=== PATIENT | female | born 1940 | race Caucasian/White ===

== ENCOUNTER → 2023-11-06 09:55 | Outpatient (REF) | payer MEDICARE, OTHER, SELFPAY | LOC: RAD 09:55 | PROVIDERS: ATTENDING PHYSICIAN Internal Medicine Gastroenterology; FAMILY PHYSICIAN Physician Assistant Medical | DX: R13.19 Other dysphagia (principal) | CPT/HCPCS: 74230; 92611 ==

== ENCOUNTER → 2023-12-05 06:26 | Day surgery (SDC) | payer MEDICARE, OTHER, SELFPAY | LOC: GI 06:26 | PROVIDERS: ATTENDING PHYSICIAN Internal Medicine Gastroenterology | DX: R63.4 Abnormal weight loss (principal); R19.7 Diarrhea, unspecified; K57.30 Diverticulosis of large intestine without perforation or abscess without bleeding; K64.0 First degree hemorrhoids; K55.20 Angiodysplasia of colon without hemorrhage; D12.3 Benign neoplasm of transverse colon | CPT/HCPCS: 45385; 45380; 88305 ==

== ENCOUNTER 2023-12-08 13:36 | Observation (INO) | payer MEDICARE, OTHER, SELFPAY ==
[2023-12-08 10:02] VITALS: BP 141/92
[2023-12-08 11:13] LABS: % Basophils 1.1 % (0-2); % Eosinophils 1.4 % (0-6); % Immature Granulocytes 0.4 % (0-0.5); % Lymphocytes 16.5 % (20.5-51.1); % Monocytes 7.5 % (1.7-9.3); % Neutrophils 73.1 % (42.2-75.2); Absolute Basophils 0.1 10^3/uL (0-0.2); Absolute Eosinophils 0.1 10^3/uL (0-0.7); Absolute Lymphocytes 1.3 10^3/uL (1.2-3.4); Absolute Monocytes 0.6 10^3/uL (0.1-0.6); Absolute Neutrophils 5.9 10^3/uL (1.4-6.5); Hematocrit 34.6 % (37.0-47.0); Hemoglobin 11.7 g/dL (12.0-16.0); Mean Corp Hgb Conc. 33.8 g/dL (33.0-37.0); Mean Corpuscular Hgb 28.7 pg (27.0-31.0); Mean Platelet Volume 10.5 fL (7.4-10.4); Nucleated Red Blood Cells % 0 %; Platelet Count 299 10^3/uL (130-400); Red Blood Cell Count 4.07 10^6/uL (4.20-5.40); Red Cell Dist. Width 14.6 % (11.5-14.5); White Blood Cell Count 8.1 10^3/uL (4.8-10.8)
[2023-12-08] MEDS: NSS 1000 IV ×2 (11:19→15:53)
[2023-12-08 11:27] LABS: ALT (SGPT) 20 U/L (0-35); AST (SGOT) 24 U/L (14-36); Albumin 4.3 g/dl (3.5-5.0); Alkaline Phosphatase 126 U/L (38-126); Blood Urea Nitrogen 15 mg/dl (7-17); Calcium 9.5 mg/dl (8.4-10.2); Carbon Dioxide 27 mmol/L (22-30); Chloride 107 mmol/L (98-107); Glucose 102 mg/dl (70-99); Potassium 3.5 mmol/L (3.5-5.1); Sodium 140 mmol/L (135-145); Total Bilirubin 1.1 mg/dl (0.2-1.3); Total Protein 7.3 g/dl (6.3-8.2); eGFR > 60.00
[2023-12-08 11:31] VITALS: BP 150/84; BP 152/71; BP 165/93; PULSE 100; PULSE 84; PULSE 92
--- NOTE | 2023-12-08 11:39 | ED.GENMED ---
History of Present Illness
General
Chief Complaint: Rectal Bleeding
Source: patient, records and family
Exam Limitations: none
Time Seen by Provider: 12/08/23 10:51
Nursing documentation reviewed up to this point in time: agreed with
Travel History
Have you had any contact with someone who has COVID-19?: No
Do you have any symptoms of coronavirus? Fever > 100 degrees, chills, cough, shortness of breath, sore throat, loss of taste or smell, muscle aches, or headache?: No
History of Present Illness
History of Present Illness:
Patient is a 3-year-old female presents to the emergency department complaining of feeling mildly weak, lightheaded with some discomfort in her abdomen as well as black stool. Patient denies chest pain, shortness of breath or palpitations. Patient
had a colonoscopy with removal of a polyp in the transverse colon 3 days ago. Patient had little bit of bleeding after that but then yesterday her stools turned black. Last night the patient was standing and almost had a syncopal episode because
of weakness and feeling lightheaded. Patient does have a history of A-fib but denies any palpitations. Patient denies fever or chills. Patient had an endoscopy and Deion which did not show any upper GI issues. Patient also had Two
angioectasias on her colonoscopy that were not bleeding.
Past History
Past History
ED Past Medical History: Arrthythmia (Atrial fib), CAD, CHF, HTN, Hypercholesterolemia, Hypothyroidism and Other (PNA, Microscopic Colitis, Vertigo, DDD)
ED Past Surgical History: Appendectomy, Bowel resection, Gynecological (Hysterectomy), Orthopedic (Total L knee replacement) and Other (Polyps removed and then developed staph infection. Needed colostomy and then reversal)
Social History
Tobacco: Non-smoker
Alcohol: None
Personal:
Living: with family (Grandson)
Employment: Retired
Family History
Family History: Negative Diabetes, Hypertension or CAD
Review of Systems
Review of Systems
All Other Systems: ROS reviewed and negative except as documented in HPI and ROS
Constitutional: Reports fatigue; Denies fever or chills
EENT: Reports no symptoms
Respiratory: Reports no symptoms
Cardiac: Reports syncope (near); Denies chest pain, diaphoresis or palpitations
ABD/GI: Reports abdominal pain and black stools; Denies nausea, vomiting, diarrhea, constipated or anorexia
: Reports no symptoms
Musculoskeletal: Reports no symptoms
Skin: Reports no symptoms
Neurological: Reports no symptoms
Hematologic/Lymphatic: Denies bleeding or bruising
Phy Exam
Physical Exam
Physical Exam:
Physical Exam
General: No apparent distress, alert and appropriate, elderly and frail, well hydrated
HENT: Normocephalic, supple with no lymphadenopathy, no thyromegaly
Eyes: Clear sclera, conjuctiva without injection
Heart: Regular rhythm and rate. No S3, S4. No murmur. No NVD
Lungs: No respiratory distress, no stridor, lung sounds clear and equal bilaterally
Abdomen: Soft, minimal diffuse tenderness without guarding or rebound, no organomegaly, no CVA tenderness, BS good. Rectal shows nonthrombosed external hemorrhoids with black melanotic stool that is Hemoccult positive
Neuro: Alert and oriented x 3, CN II - XII intact, no motor focality, no cerebellar dysfunction
Skin: no rash
Psychiatric: well kept. interactive and cooperative
Extremities: No edema, cyanosis, tenderness, Good and equal peripheral pulses.
Course
Orders/Labs/Results
Orders:
Orders
12/08/23 10:50
IV Insert/Care/Rem.- Treatment PRN
12/08/23 10:52
Complete Blood Count/With Diff Urgent
Comprehensive Metabolic Panel Urgent
12/08/23 11:10
Orthostatic VS- Treatment ONCE
0.9% Sodium Chloride 1000 ml [Nss] 1,000 ml IV BOLUS
12/08/23 11:11
Electrocardiogram (*1) Urgent
Reason for Study: Palpitations
EKG- Treatment ONCE
12/08/23 11:18
Type+Screen Urgent
Abnormal Lab Results
12/08/23
10:52
RBC 4.07 L 10^6/uL
(4.20-5.40)
Hgb 11.7 L g/dL
(12.0-16.0)
Hct 34.6 L %
(37.0-47.0)
RDW 14.6 H %
(11.5-14.5)
MPV 10.5 H fL
(7.4-10.4)
Lymphocytes % 16.5 L %
(20.5-51.1)
Creatinine 0.5 L mg/dL
(0.6-1.0)
Glucose 102 H mg/dl
(70-99)
12/08/23 10:52
12/08/23 10:52
Vital Signs
Initial and Last Documented VS:
Initial Vital Signs
Temp Pulse Resp BP Pulse Ox
98.2 F 99 16 141/92 98
12/08/23 10:02 12/08/23 10:02 12/08/23 10:02 12/08/23 10:02 12/08/23 10:02
Last Documented Vital Signs
Temp Pulse Resp BP Pulse Ox
98.2 F 99 16 141/92 98
12/08/23 10:02 12/08/23 10:02 12/08/23 10:02 12/08/23 10:02 12/08/23 10:02
*Radiology
Radiology exam reviewed: other (na)
*Pulse Oximetry
Patient hypoxic: no
*EKG
Interpreted by ED Provider?: Yes
EKG Intrepretation Date: 12/08/23
EKG Intrepretation Time: 11:50
Interpretation: abnormal
Comparison EKG: no changes
Heart Rate: 81
Rate: normal
Rhythm: sinus
[place]: normal axis
QRS Pattern: normal QRS
Ischemia: no ischemia
*[employer] Interpretation
Rate: normal
Interpretation: normal
Heart Rate: 81
Rhythm: sinus
*Critical Care Note
Total Time (30-74mins, 75-104mins- exclusive of procedures): 35 minutes
Update Note
Update Note:
The patient's near syncopal episode will admit. Patient's hemoglobin has dropped approximately 2 g from her normal.
ED Attending Note
-
Portions of this chart may have been created with voice recognition software.� Occasional wrong word or��sound alike� substitutions may have occurred due to the inherent limitations of voice recognition software.
Discharge Plan
Departure
Patient Disposition: Admit
Date of Disposition: 12/08/23
Time of Disposition: 11:51
Admit to: Telemetry
Admit to doctor: Hospitalist
Presentation/result/management discussed w/ accepting MD/DO: Gastroenterology
Patient with high blood pressure during this ER visit?: Yes
Condition: Serious
Discharge Problem:
Near syncope, Acute GI bleeding
Prescriptions:
No Action
atorvastatin 20 MG tablet
20 mg PO DAILY
melatonin 3 MG tablet
3 mg PO HSPRN PRN (Reason: insomnia)
loperamide 2 MG capsule
2 mg PO Q6HPRN PRN (Reason: DIARRHEA)
aspirin 81 mg Tablet,Delayed Release (Dr/Ec)
81 mg PO DAILY
diltiazem HCl 180 MG capsule,extended release 24hr
180 mg PO HS
losartan 50 mg Tablet
50 mg PO DAILY
sertraline [Zoloft] 25 mg Tablet
25 mg PO HS
cholecalciferol (vitamin D3) [Vitamin D3] 25 mcg (1,000 unit) Capsule
25 mcg PO DAILY
multivitamin Tablet
1 tab PO DAILY
Vitamin C
1 tab PO DAILY
[place] Silica
1 tab PO DAILY
acetaminophen [Tylenol 8 Hour] 650 mg Tablet Extended Release
1,300 mg PO Q8HPRN PRN (Reason: pain)
Referrals:
Daryl Castillo PA-C [Family Provider] -
Interventions
Interventions:
*Risk Screen - Suicide Last Done: 12/08/23 10:02
*General Assessment Last Done: 12/08/23 10:02
*Neglect/Abuse Screening Last Done: 12/08/23 10:02
Discharge Date and Time
Print Language: CHINESE
[2023-12-08] MEDS: PROTONIX 100 IV (12:02)
[2023-12-08] MEDS: PROTONIX IV 80 MG IV (12:02)
--- NOTE | 2023-12-08 12:29 | CM ---
Addendum entered by Adarsh Archibald 12/08/23 14:14:
Pt has OBS status. OBS status explained to the pt and daughter Ashley, they expressed their understanding. GLASS letter signed, left in CM department binder to be placed in pt's record.
Original Note:
CM following re: discharge planning.
Reviewed pt's chart, met with pt in ER and pt's daughter Ashley at bedside.
Pt is an 83 year old female, admitted with primary dx of Rectal Bleeding.
Pt reports she lives alone in a 2SH, 2 steps to enter, has a cat and a dog, has 2 supportive daughters, daughter Ashley lives next door and helps daily as needed. Pt reports she has a walker and 3 canes, does not use them in house distance. Pt reports
she had VN services in the past, cannot recall the name and pt stated she was at [facility] in the past when she had a total knee replacement. Pt's daughter stated she feels that pt will be benefitted from VN services at discharge and she
preferred [facility] [place]. pt lives in [place].
PCP: [facility]
Pharmacy: [facility]
D/C plan: home with anticipated VN services and family support.
CM will follow with discharge plan updates as hospitalization progresses
--- NOTE | 2023-12-08 13:21 | HPS.HSE ---
Family Physician
-
Family Physician: Daryl Castillo PA-C
Chief Complaint
-
black stools
History of Present Illness
Patient is an 83-year-old female who had a colonoscopy on December 06, 2023. She had a polyp removed at that time. Since then she has been complaining of 'pooping blood and black stools'. She states that the stool has gotten much black or as she has
gone on. She admitted to the lightheadedness and dizziness, shortness of breath, and nausea. She denied chest pain or any other symptoms. She stated that she was unsteady earlier this morning and fell. Hemoglobin is found to be 11.7. Patient is
being brought in as observation.
Medical History
Past Medical History
Past Medical History: Reports Other
Additional Past Medical History:
Essential hypertension
Paroxysmal atrial fibrillation with Linq implant
Hyperlipidemia
Depression
History of hypothyroidism as documented�patient not on any medications for this
Gastroesophageal reflux disease, coronary artery disease
Past Surgical History: Reports Other
Additional Past Surgical History:
Left knee replacement x 2 (second 1 due to staph infection)
Right knee replacement
History of bowel resection with colostomy followed by reversal
Total abdominal hysterectomy
Appendectomy
Septic prosthetic joint
Social History
Tobacco: Non-smoker
Alcohol: None
Drug: None
Family History
Family History: Not pertinent
Allergies / Home Medications
Allergies reflects when Allergies were last updated in true[x] Media.
Home Medications with original date entered in true[x] Media
Allergy/Medication List:
Allergies
Allergy/AdvReac Type Severity Reaction Status Date / Time
codeine Allergy Nausea / Verified 12/08/23 10:02
Vomiting
doxycycline Allergy Nausea Verified 12/08/23 10:02
escitalopram [From Lexapro] Allergy diarrhea Verified 12/08/23 10:02
morphine Allergy Nausea / Verified 12/08/23 10:02
Vomiting
Penicillins Allergy diarrhea Verified 12/08/23 10:02
apixaban [From Eliquis] AdvReac Unknown hemarthrosi Verified 12/08/23 10:02
s
Home Medications
atorvastatin 20 mg tablet 20 mg PO DAILY High cholesterol 02/14/19
melatonin 3 mg tablet 3 mg PO HSPRN PRN insomnia 02/14/19
loperamide 2 mg capsule 2 mg PO Q6HPRN PRN DIARRHEA 03/10/19
aspirin 81 mg tablet,delayed release 81 mg PO DAILY 08/21/22
diltiazem HCl 180 mg capsule,extended release 24 hr 180 mg PO HS 08/21/22
[place] Silica 1 tab PO DAILY 05/07/23
acetaminophen 650 mg tablet,extended release (Tylenol 8 Hour) 1,300 mg PO Q8HPRN PRN pain 05/07/23
ascorbic acid (vitamin C) 500 mg tablet (Vitamin C) 500 mg PO DAILY ##0 05/07/23
cholecalciferol (vitamin D3) 25 mcg (1,000 unit) capsule (Vitamin D3) 25 mcg PO DAILY 05/07/23
losartan 50 mg tablet 50 mg PO DAILY 05/07/23
multivitamin 1 tab PO DAILY 05/07/23
sertraline 25 mg tablet (Zoloft) 25 mg PO HS 05/07/23
Review of Systems
-
History Source: Patient
A 12 point ROS was completed and negative except as noted: Yes
Constitutional: Reports No Symptoms
EENT: Reports No Symptoms
Respiratory: Reports Trouble Breathing
Cardiac: Reports No Symptoms
Abdomen/GI: Reports Nausea, Bloody Stools and Black Stools; Denies Abdominal Pain or Vomiting
: Reports No Symptoms
Musculoskeletal: Reports No Symptoms
Skin: Reports No Symptoms
Neurological: Reports Dizzy
Endocrine: Reports No Symptoms
Hematologic/Lymphatic: Reports No Symptoms
Psych: Reports No Symptoms
Physical Exam
Vital Signs
Vital Signs
Temp Pulse Resp BP Pulse Ox
98.2 F 99 16 141/92 98
12/08/23 10:02 12/08/23 10:02 12/08/23 10:02 12/08/23 10:02 12/08/23 10:02
Physical Exam
General: Well Developed, Well Nourished and No Apparent Distress
HEENT: NormoCephalic and Anicteric; No Oxygen
Respiratory: Clear; No Wheezes, Rales, Rhonchi or Crackles
Cardiac: S1/S2 and Regular Rhythm; No Murmur
GI: Soft, Non Tender, Non Distended and Normal Bowel Sounds
Musculoskeletal: No Clubbing, No Cyanosis and No Edema
Skin: Warm
Neuro: Awake, Alert and Nonfocal/grossly intact
Psych: Calm
Laboratory Results
-
12/08/23 10:52
12/08/23 10:52
Laboratory Results
Total Bilirubin 1.1 mg/dl (0.2-1.3) 12/08/23 10:52
AST 24 U/L (14-36) 12/08/23 10:52
ALT 20 U/L (0-35) 12/08/23 10:52
Alkaline Phosphatase 126 U/L (38-126) 12/08/23 10:52
Impression/Plan
-
Patient is an 83-year-old female
Presumed acute blood loss anemia due to post polypectomy bleed--patient's hemoglobin is 11.7--however, last hemoglobin documented was in April 2023 which was 13.7--OBS--clear liquids--await GI input--likely lower GI bleed but continue Protonix drip
at GIs recommendation--follow bleeding and trend hemoglobin
Essential hypertension--continue losartan and diltiazem with parameters
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
Hyperlipidemia--continue atorvastatin
History of hypothyroidism--not on medications at this point
Depression--continue Zoloft
DVT prophylaxis
CODE STATUS--full code
--- NOTE | 2023-12-08 13:29 | CON.GI ---
Consultation
-
Date/Time Consultation Requested: 12/08/23 11am
Date/Time Consultation Performed: 12/08/23 1:30 pm
Requesting Provider: Michele
Performing Provider: Gokul
Reason for Consultation: lower gi bleeding
Medical History
Chief Complaint / HPI
Chief Complaint: lower gi bleeding
History of Present Illness:
This Patient is a 83 y/o woman with a hx of afib, CAD, CHF, chronic diarrhea, zenkers, large hiatal hernia and gerd. She had seen Dr. Yousif as an outpatient for weight loss and diarrhea and a hx of a zenkers diverticulum. She had a colonoscopy
on 12/04 that showed a 9 mm transverse colon polyp, non bleeding avm and large sigmoid diverticula and hemorrhoids. She has had an upper endoscopy in 09/01 which showed large hiatal hernia and probable zenkers. Since the time of her endoscopy she
had had 1-2 dark stools a day. She says black. she didn't have abdominal pain but did become weak over the last day and came to the ER. Her last bm was over 6 hours ago but she says that it was black. She doesn't have any vomiting or nausea.
She is hungry. no nsaids except an aspirin
Past Medical History
Past Medical History: Arrhythmias (afib), CAD, CHF, HTN, Hypothyroidism and Other (microscopic colitis?, zenkers, hiatal hernia)
Past Surgical History: Appendectomy and Other (bowel resection, hysterectomy)
Social History
Tobacco: Non-Smoker
Alcohol: None
Living: With Family
Family History
Family History: Reviewed & Not Pertinent
Allergies / Home Medications
Allergy/AdvReac Type Severity Reaction Status Date / Time
codeine Allergy Nausea / Verified 12/08/23 10:02
Vomiting
doxycycline Allergy Nausea Verified 12/08/23 10:02
escitalopram [From Lexapro] Allergy diarrhea Verified 12/08/23 10:02
morphine Allergy Nausea / Verified 03/30/24 10:02
Vomiting
Penicillins Allergy diarrhea Verified 12/08/23 10:02
apixaban [From Eliquis] AdvReac Unknown hemarthrosi Verified 12/08/23 10:02
s
�Medication �Instructions �Recorded
atorvastatin 20 mg tablet 20 mg PO DAILY High cholesterol 02/14/19
melatonin 3 mg tablet 3 mg PO HSPRN PRN insomnia 02/14/19
loperamide 2 mg capsule 2 mg PO Q6HPRN PRN DIARRHEA 03/10/19
aspirin 81 mg tablet,delayed 81 mg PO DAILY 08/21/22
release
diltiazem HCl 180 mg 180 mg PO HS 08/21/22
capsule,extended release 24 hr
[place] Silica 1 tab PO DAILY 05/07/23
acetaminophen 650 mg 1,300 mg PO Q8HPRN PRN pain 05/07/23
tablet,extended release (Tylenol 8
Hour)
ascorbic acid (vitamin C) 500 mg 500 mg PO DAILY ##0 05/07/23
tablet (Vitamin C)
cholecalciferol (vitamin D3) 25 25 mcg PO DAILY 05/07/23
mcg (1,000 unit) capsule (Vitamin
D3)
losartan 50 mg tablet 50 mg PO DAILY 05/07/23
multivitamin 1 tab PO DAILY 05/07/23
sertraline 25 mg tablet (Zoloft) 25 mg PO HS 05/07/23
Review of Systems
-
All other systems: A 12 pt ROS was Negative except as stated above in HPI
Vital Signs
Temp Pulse Resp BP Pulse Ox
98.2 F 99 16 141/92 98
12/08/23 10:02 12/08/23 10:02 12/08/23 10:02 12/08/23 10:02 12/08/23 10:02
Physical Exam
Exam
General: No Apparent Distress
HEENT: Anicteric
Cardiac: S1/S2
GI: Soft, Non Tender and Non Distended
Rectal: Other (very dark brown not black heme pos)
Skin: Warm
Psych: Calm
Results
WBC 8.1 10^3/uL (4.8-10.8) 12/08/23 10:52
Hgb 11.7 g/dL (12.0-16.0) L 12/08/23 10:52
Hct 34.6 % (37.0-47.0) L 12/08/23 10:52
MCV 85.0 fL (81.0-99.0) 12/08/23 10:52
Plt Count 299 10^3/uL (130-400) 12/08/23 10:52
Absolute Neuts (auto) 5.9 10^3/uL (1.4-6.5) 12/08/23 10:52
Sodium 140 mmol/L (135-145) 12/08/23 10:52
Potassium 3.5 mmol/L (3.5-5.1) 12/08/23 10:52
Chloride 107 mmol/L (98-107) 12/08/23 10:52
Carbon Dioxide 27 mmol/L (22-30) 12/08/23 10:52
BUN 15 mg/dl (7-17) 12/08/23 10:52
Creatinine 0.5 mg/dL (0.6-1.0) L 12/08/23 10:52
Calcium 9.5 mg/dl (8.4-10.2) 12/08/23 10:52
Total Bilirubin 1.1 mg/dl (0.2-1.3) 12/08/23 10:52
AST 24 U/L (14-36) 12/08/23 10:52
ALT 20 U/L (0-35) 12/08/23 10:52
Alkaline Phosphatase 126 U/L (38-126) 12/08/23 10:52
Assessment / Plan
-
Pt is a 83 y/o woman that had a colonoscopy on 12/04 with some black stool and drop in hgb of 2 gms over 3 days with normal BUN. She does have a large hiatal hernia, right colon avms and diverticulum as well as a polyp removed by cold snare (under
1cm). Based on timing likely mild postpolypectomy bleeding but can't r/o upper in light of large hiatal hernia and complaint of black stool. For now:
1. monitor hgb
2. transfuse as needed
3. PPI IV q12
4. will follow clinically to decide if will require scope but likely this will be a self limited milder postpolypectomy bleed
5. ok for clears
-
-
Thank you for consultation and allowing me to participate in the patient's care. Please call the applications instructor GI physician during the after hours with any questions or concerns.
[2023-12-08 14:57] VITALS: BP 160/80
[2023-12-08 14:58] VITALS: BMI 24.1
[2023-12-08 14:59] LABS: Hematocrit 32.1 % (37.0-47.0); Hemoglobin 10.4 g/dL (12.0-16.0)
[2023-12-08 17:59] VITALS: BMI 24.1
[2023-12-08 19:26] VITALS: BP 153/86
[2023-12-08] MEDS: ZOLOFT 25 MG PO (20:59)
[2023-12-08] MEDS: CARDIZEM CD 180 MG PO (21:00)
[2023-12-08] MEDS: MELATONIN 3 MG PO (23:02)
[2023-12-08 23:38] VITALS: BP 152/71
[2023-12-09] MEDS: PROTONIX 100 IV ×3 (00:49→22:03)
[2023-12-09 00:50] LABS: Hematocrit 34.9 % (37.0-47.0); Hemoglobin 11.4 g/dL (12.0-16.0)
[2023-12-09 03:26] VITALS: BP 136/76
[2023-12-09 07:00] VITALS: BP 156/84
[2023-12-09 08:19] LABS: Hematocrit 33.4 % (37.0-47.0); Mean Corp Hgb Conc. 32.9 g/dL (33.0-37.0); Mean Corpuscular Hgb 28.3 pg (27.0-31.0); Mean Corpuscular Volume 85.9 fL (81.0-99.0); Mean Platelet Volume 10.8 fL (7.4-10.4); Platelet Count 272 10^3/uL (130-400); Red Blood Cell Count 3.89 10^6/uL (4.20-5.40); Red Cell Dist. Width 14.8 % (11.5-14.5); White Blood Cell Count 5.6 10^3/uL (4.8-10.8)
[2023-12-09 08:27] LABS: Blood Urea Nitrogen 7 mg/dl (7-17); Calcium 8.7 mg/dl (8.4-10.2); Carbon Dioxide 28 mmol/L (22-30); Chloride 106 mmol/L (98-107); Estimated Creatinine Clearance 57 ml/min; Glucose 112 mg/dl (70-99); Potassium 3.2 mmol/L (3.5-5.1); Sodium 139 mmol/L (135-145); eGFR > 60.00
[2023-12-09] MEDS: ASPIR LOW (ENTERIC COATED) 81 MG PO (08:31)
[2023-12-09] MEDS: VITAMIN D3 (cholecalciferol) 25 MCG PO (08:31)
[2023-12-09] MEDS: THERAGRAN 1 TABLET PO (08:31)
[2023-12-09] MEDS: COZAAR 50 MG PO (08:31)
[2023-12-09] MEDS: VITAMIN C 500 MG PO (08:32)
[2023-12-09] MEDS: LIPITOR 20 MG PO (08:32)
--- NOTE | 2023-12-09 09:16 | W.PN.GI.CBS2 ---
Today's Communication / Plan
-
regular diet
Assessment / Plan
-
Pt is a 83 y/o woman that had a colonoscopy on 12/04 with some black stool and drop in hgb of 2 gms over 3 days with normal BUN. She does have a large hiatal hernia, right colon avms and diverticulum as well as a polyp removed by cold snare (under
1cm). Based on timing likely mild postpolypectomy bleeding which has resolved. For now:
1. monitor hgb which has now been stable w/o need for transfusion
2. change to PPI po bid
3. ok for regular food
would watch one more day and if stable can d/c tomorrow
Subjective
Subjective
Date of Service: December 09, 2023
Pt with bms but turning brown, confirmed with night nurse (pt seen before 7am). No abdominal pain
Objective
Data Reviewed
Laboratory Data:
Laboratory Results
12/09/23 07:40
12/09/23 07:40
Laboratory Results
Total Bilirubin 1.1 mg/dl (0.2-1.3) 12/08/23 10:52
AST 24 U/L (14-36) 12/08/23 10:52
ALT 20 U/L (0-35) 12/08/23 10:52
Alkaline Phosphatase 126 U/L (38-126) 12/08/23 10:52
Vital Signs and I&O:
Vital Signs
Temp Pulse Resp BP Pulse Ox
97.7 F 93 17 156/84 96
12/09/23 07:00 12/09/23 07:00 12/09/23 07:00 12/09/23 07:00 12/09/23 07:00
I&O
12/08/23 12/09/23 12/10/23
06:59 06:59 06:59
Intake Total 1100 / 1100
Balance 1100 / 1100
Physical Exam
Physical Exam
GI: Soft and Non Tender
--- NOTE | 2023-12-09 11:22 | W.PN.HOSP.TC ---
Today's Communication/Plan
-
observe today
Assessment / Plan
Assessment / Plan
Patient is an 83-year-old female
Presumed acute blood loss anemia due to post polypectomy bleed--patient's hemoglobin is 11.7--however, last hemoglobin documented was in April 2023 which was 13.7--advancing diet--apprec GI input--likely lower GI bleed but continue Protonix
--hopeful d/c tomorrow as per GI
Essential hypertension--continue losartan and diltiazem with parameters
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
Hyperlipidemia--continue atorvastatin
History of hypothyroidism--not on medications at this point
Depression--continue Zoloft
DVT prophylaxis
CODE STATUS--full code
Anticipated Discharge: Within 24 hours
Subjective/Interval History
-
Date of Service: December 09, 2023
pt having breakfast
Objective Data
-
Labs:
Laboratory Results
12/09/23 12/09/23
00:13 07:40
WBC 5.6
Hgb 11.4 L 11.0 L
Hct 34.9 L 33.4 L
Plt Count 272
Sodium 139
Potassium 3.2 L
Chloride 106
Carbon Dioxide 28
BUN 7
Creatinine 0.4 L
Glucose 112 H
Calcium 8.7
Vital Signs:
max temp for 24 hours
12/09/23
03:26
Temp 98.7 F
Vital Signs
Temp Pulse Resp BP Pulse Ox
97.7 F 93 17 156/84 96
12/09/23 07:00 12/09/23 07:00 12/09/23 07:00 12/09/23 07:00 12/09/23 07:00
I&O
12/08/23 12/09/23 12/10/23
06:59 06:59 06:59
Intake Total 1099 / 1099
Balance 1099
Review of Systems
-
All other systems: Reviewed and negative
Physical Exam
-
General: Well Developed, Well Nourished and No Apparent Distress
HEENT: Normocephalic and Atraumatic
Respiratory: Clear to Auscultation; Negative Wheezes or Rhonchi
Cardiac: Regular Rhythm and S1/S2; Negative Murmur
GI: Soft, Nontender, Nondistended and Normal Bowel Sounds
Musculoskeletal: No Clubbing, No Cyanosis and No Edema
Neuro: Awake
Psych: Calm
[2023-12-09] MEDS: KCL 40 MEQ PO (11:46)
[2023-12-09] MEDS: NSS 1000 IV (13:39)
[2023-12-09 15:00] VITALS: BP 152/70
[2023-12-09] MEDS: ZOLOFT 25 MG PO (22:03)
[2023-12-09] MEDS: MELATONIN 3 MG PO (22:03)
[2023-12-09] MEDS: CARDIZEM CD 180 MG PO (22:03)
[2023-12-09 23:53] VITALS: BP 148/86
[2023-12-10 05:56] LABS: % Basophils 1.5 % (0-2); % Eosinophils 3.4 % (0-6); % Immature Granulocytes 0.2 % (0-0.5); % Lymphocytes 27.1 % (20.5-51.1); % Monocytes 11.6 % (1.7-9.3); % Neutrophils 56.2 % (42.2-75.2); Absolute Basophils 0.1 10^3/uL (0-0.2); Absolute Eosinophils 0.2 10^3/uL (0-0.7); Absolute Lymphocytes 1.8 10^3/uL (1.2-3.4); Absolute Monocytes 0.8 10^3/uL (0.1-0.6); Absolute Neutrophils 3.7 10^3/uL (1.4-6.5); Hematocrit 32.2 % (37.0-47.0); Hemoglobin 10.8 g/dL (12.0-16.0); Mean Corp Hgb Conc. 33.5 g/dL (33.0-37.0); Mean Corpuscular Hgb 28.3 pg (27.0-31.0); Mean Corpuscular Volume 84.5 fL (81.0-99.0); Mean Platelet Volume 10.7 fL (7.4-10.4); Nucleated Red Blood Cells % 0 %; Platelet Count 289 10^3/uL (130-400); Red Blood Cell Count 3.81 10^6/uL (4.20-5.40); Red Cell Dist. Width 14.8 % (11.5-14.5); White Blood Cell Count 6.5 10^3/uL (4.8-10.8)
[2023-12-10 06:00] VITALS: BMI 23.7
[2023-12-10 06:19] LABS: Blood Urea Nitrogen 13 mg/dl (7-17); Calcium 9.3 mg/dl (8.4-10.2); Carbon Dioxide 26 mmol/L (22-30); Chloride 103 mmol/L (98-107); Estimated Creatinine Clearance 57 ml/min; Glucose 111 mg/dl (70-99); Sodium 140 mmol/L (135-145); eGFR > 60.00
[2023-12-10 06:24] LABS: Potassium 3.4 mmol/L (3.5-5.1)
[2023-12-10 07:00] VITALS: BP 140/76
[2023-12-10] MEDS: PROTONIX 100 IV (07:54)
[2023-12-10] MEDS: ASPIR LOW (ENTERIC COATED) 81 MG PO (07:55)
[2023-12-10] MEDS: COZAAR 50 MG PO (07:55)
[2023-12-10] MEDS: THERAGRAN 1 TABLET PO (07:55)
[2023-12-10] MEDS: VITAMIN D3 (cholecalciferol) 25 MCG PO (07:55)
[2023-12-10] MEDS: LIPITOR 20 MG PO (07:55)
[2023-12-10] MEDS: VITAMIN C 500 MG PO (08:01)
--- NOTE | 2023-12-10 08:12 | W.PN.GI.CBS2 ---
Today's Communication / Plan
-
ok for d/c
Assessment / Plan
-
Pt is a 83 y/o woman that had a colonoscopy on 12/04 with some black stool and drop in hgb of 2 gms over 3 days with normal BUN. She does have a large hiatal hernia, right colon avms and diverticulum as well as a polyp removed by cold snare (under
1cm). Based on timing likely mild postpolypectomy bleeding which has resolved. For now:
1. hgb stable, no more bleeding
2. eating w/o issue
ok for d/c
Subjective
Subjective
Date of Service: December 10, 2023
Pt with normal bm per night nurse. no overt bleeding or abd pain
Objective
Data Reviewed
Laboratory Data:
Laboratory Results
12/10/23 05:20
12/10/23 05:20
Laboratory Results
Total Bilirubin 1.1 mg/dl (0.2-1.3) 12/08/23 10:52
AST 24 U/L (14-36) 12/08/23 10:52
ALT 20 U/L (0-35) 12/08/23 10:52
Alkaline Phosphatase 126 U/L (38-126) 12/08/23 10:52
Vital Signs and I&O:
Vital Signs
Temp Pulse Resp BP Pulse Ox
97.7 F 86 16 140/76 99
12/10/23 07:00 12/10/23 07:55 12/10/23 07:00 12/10/23 07:55 12/10/23 07:00
I&O
12/09/23 12/10/23 12/11/23
06:59 06:59 06:59
Intake Total 1100 / 1100 960 / 960
Balance 1100 / 1100 960 / 960
Physical Exam
Physical Exam
GI: Soft and Non Tender
--- NOTE | 2023-12-10 11:02 | CM ---
Addendum entered by Marie Bar RN 12/10/23 14:36:
Spoke with Rosy at [facility] she checked with Ray and pt is accepted.
PLAN Home with [facility] fax [phone]
Original Note:
Spoke with patient and daughter Shaye [phone].
Both said pt was ready for discharge .
Pt requested VN she lives in [place].
Shaye will drive her home.
Contacted [facility] she declined patient
Referral placed for [facility] in care port with intake . No call back.
PLAN Home with [facility] if accepted fax [phone]
--- NOTE | 2023-12-10 13:50 | W.DS.TRANS ---
DC Summary - Pastry Assistant
-
Discharge Instructions:
Sleep Apnea Risk Low
Discharge Diagnosis/Procedures Post colonic polypectomy bleed, essential
hypertension, paroxysmal atrial fibrillation,
hyperlipidemia, hypothyroidism, depression
Diet Regular
Activity As tolerated
Driving Restrictions As prior to admission
Bathing Restrictions None
Instructions:
Stand-Alone Forms:
Changes to Home Medications: No
Discharge Medications:
DC Medications w/original date entered in [facility]
atorvastatin 20 mg tablet 20 mg PO DAILY High cholesterol 02/14/19
melatonin 3 mg tablet 3 mg PO HSPRN PRN insomnia 02/14/19
loperamide 2 mg capsule 2 mg PO Q6HPRN PRN DIARRHEA 03/10/19
aspirin 81 mg tablet,delayed release 81 mg PO DAILY Blood Clot Prevention/Tx 08/21/22
diltiazem HCl 180 mg capsule,extended release 24 hr 180 mg PO HS Blood Pressure 08/21/22
Estefanía Silica 1 tab PO DAILY herbal supplement 05/07/23
acetaminophen 650 mg tablet,extended release (Tylenol 8 Hour) 1,300 mg PO Q8HPRN PRN pain 05/07/23
ascorbic acid (vitamin C) 500 mg tablet (Vitamin C) 500 mg PO DAILY ##0 05/07/23
cholecalciferol (vitamin D3) 25 mcg (1,000 unit) capsule (Vitamin D3) 25 mcg PO DAILY Supplement 05/07/23
losartan 50 mg tablet 50 mg PO DAILY Blood Pressure 05/07/23
multivitamin 1 tab PO DAILY Supplement 05/07/23
sertraline 25 mg tablet (Zoloft) 25 mg PO HS Depression 05/07/23
Home Medication Changes
Pending Results: No
--- NOTE | 2023-12-10 14:07 | W.PN.HOSP.TC ---
Today's Communication/Plan
-
DC
Assessment / Plan
Assessment / Plan
Patient is an 83-year-old female
Presumed acute blood loss anemia due to post polypectomy bleed--patient's hemoglobin is 11.7 to 10.8 -however, last hemoglobin documented was in April 2023 which was 13.7- --apprec GI input-- resolved GI bleed , and tolerating diet. Stable for DC.
Hypokalemia-replete
Essential hypertension--continue losartan and diltiazem with parameters
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
Hyperlipidemia--continue atorvastatin
History of hypothyroidism--not on medications at this point
Depression--continue Zoloft
DVT prophylaxis
CODE STATUS--full code
Medically stable for discharge
Anticipated Discharge: Today
Subjective/Interval History
-
Date of Service: December 10, 2023
No further rectal bleeding. Tolerating diet.
No abdominal pain. No diarrhea.
Objective Data
-
Labs:
Laboratory Results
12/10/23
05:20
WBC 6.5
Hgb 10.8 L
Hct 32.2 L
Plt Count 289
Sodium 140
Potassium 3.4 L
Chloride 103
Carbon Dioxide 26
BUN 13
Creatinine 0.6
Glucose 111 H
Calcium 9.3
Vital Signs:
Vital Signs
Temp Pulse Resp BP Pulse Ox
97.7 F 86 16 140/76 97
12/10/23 07:00 12/10/23 07:55 12/10/23 07:00 12/10/23 07:55 12/10/23 10:40
I&O
12/09/23 12/10/23 12/11/23
06:59 06:59 06:59
Intake Total 1100 / 1100 960 / 960
Balance 1100 / 1100 960 / 960
Review of Systems
-
Constitutional: Denies Fever
Respiratory: Denies Trouble Breathing
Cardiac: Denies Chest Pain
Neuro: Denies Dizzy
Physical Exam
-
General: No Apparent Distress
HEENT: Moist Mucous Membranes
Respiratory: Clear to Auscultation
Cardiac: Regular Rhythm and S1/S2
GI: Soft, Nontender, Nondistended and Normal Bowel Sounds
Neuro: AO x 3
Data Reviewed
-
Labs: Labs Reviewed by me
[2023-12-10] MEDS: KCL 40 MEQ PO (14:25)
[2023-12-10 14:35] VITALS: BP 154/97
== END 2023-12-10 15:10 | disposition home health service (06) ==
LOC: 3 WEST ACU 13:36
PROVIDERS: ADMITTING PHYSICIAN Internal Medicine; ATTENDING PHYSICIAN Internal Medicine; CONSULT PHYSICIAN Internal Medicine; EMERGENCY PHYSICIAN Emergency Medicine; FAMILY PHYSICIAN Physician Assistant Medical
DX: K91.840 Postprocedural hemorrhage of a digestive system organ or structure following a digestive system procedure (principal); K62.5 Hemorrhage of anus and rectum; R53.1 Weakness; R42 Dizziness and giddiness; K55.20 Angiodysplasia of colon without hemorrhage; K22.5 Diverticulum of esophagus, acquired; K57.30 Diverticulosis of large intestine without perforation or abscess without bleeding; Y83.8 Other surgical procedures as the cause of abnormal reaction of the patient, or of later complication, without mention of misadventure at the time of the procedure; Y73.0 Diagnostic and monitoring gastroenterology and urology devices associated with adverse incidents; Y92.9 Unspecified place or not applicable; E78.00 Pure hypercholesterolemia, unspecified; I25.10 Atherosclerotic heart disease of native coronary artery without angina pectoris; E03.9 Hypothyroidism, unspecified; D62 Acute posthemorrhagic anemia; F32.A Depression, unspecified; K21.9 Gastro-esophageal reflux disease without esophagitis; E87.6 Hypokalemia; K44.9 Diaphragmatic hernia without obstruction or gangrene; I48.0 Paroxysmal atrial fibrillation; I50.9 Heart failure, unspecified; I11.0 Hypertensive heart disease with heart failure; R00.2 Palpitations; R55 Syncope and collapse; Z87.19 Personal history of other diseases of the digestive system; Z87.01 Personal history of pneumonia (recurrent); Z79.82 Long term (current) use of aspirin; Z96.653 Presence of artificial knee joint, bilateral; Z90.710 Acquired absence of both cervix and uterus; Z88.1 Allergy status to other antibiotic agents; Z88.5 Allergy status to narcotic agent; Z88.0 Allergy status to penicillin; Z88.8 Allergy status to other drugs, medicaments and biological substances; Z90.49 Acquired absence of other specified parts of digestive tract
CPT/HCPCS: 80048; 80053; 85014; 85018; 85025; 85027; 86850; 86900; 86901; 93005; 96361; 96365; 96366; 99291; G0378

== ENCOUNTER 2024-01-22 21:36 | Inpatient (IN) | payer MEDICARE, OTHER, SELFPAY ==
[2024-01-22 18:52] VITALS: BP 156/98
[2024-01-22 19:07] VITALS: BP 171/71
[2024-01-22 19:09] VITALS: BP 171/71
[2024-01-22 19:10] LABS: Glucose - Point of Care 108 mg/dl (70-99)
[2024-01-22 19:14] LABS: Hematocrit 36.8 % (37.0-47.0); Hemoglobin 11.8 g/dL (12.0-16.0); Mean Corp Hgb Conc. 32.1 g/dL (33.0-37.0); Mean Corpuscular Hgb 27.6 pg (27.0-31.0); Mean Platelet Volume 9.9 fL (7.4-10.4); Platelet Count 291 10^3/uL (130-400); Red Blood Cell Count 4.28 10^6/uL (4.20-5.40); Red Cell Dist. Width 14.1 % (11.5-14.5); White Blood Cell Count 6.7 10^3/uL (4.8-10.8)
--- NOTE | 2024-01-22 19:26 | ED.CVA ---
History of Present Illness
General
Chief Complaint: CVA/TIA Symptoms
Source: patient, records and family
Exam Limitations: none
Time Seen by Provider: 01/22/24 19:01
Nursing documentation reviewed up to this point in time: agreed with
Onset of Stroke Symptoms
Onset of symptoms known: Yes
Date of onset of symptoms: 01/22/24
Time of onset of symptoms: 04:30
Time pt last seen normal is known: Yes
Date last time pt seen normal: 01/22/24
Time last time pt seen normal: 04:30
Travel History
Have you had any contact with someone who has COVID-19?: No
Do you have any symptoms of coronavirus? Fever > 100 degrees, chills, cough, shortness of breath, sore throat, loss of taste or smell, muscle aches, or headache?: No
History of Present Illness
History of Present Illness:
83-year-old female presents for evaluation of a period of confusion and forgetfulness onset at 4:30 PM today, was at her home, walked into the kitchen, tried to call 911 but could not remember the number she called her daughter had a preprogramming
her phone daughter states she sounded scared but her speech was clear was empirically confused, she has a history of A-fib previously on Eliquis stopped due to bleeding and hemarthrosis underwent Watchman procedure, most recent cardiology evaluation
was told she can stop her aspirin, he also doubled her blood pressure medicine she said no palpitations no feeling of A-fib no headache no nausea no vomiting no arm or leg weakness she feels back to her baseline, daughter states she seems to be at
her baseline
Past History
Past History
ED Past Medical History: Arrthythmia (Atrial fib), CAD, CHF, HTN, Hypercholesterolemia, Hypothyroidism and Other (PNA, Microscopic Colitis, Vertigo, DDD)
ED Past Surgical History: Appendectomy, Bowel resection, Gynecological (Hysterectomy), Orthopedic (Total L knee replacement) and Other (Polyps removed and then developed staph infection. Needed colostomy and then reversal)
Social History
Tobacco: Non-smoker
Alcohol: None
Personal:
Living: with family (Grandson)
Employment: Retired
Family History
Family History: Negative Diabetes, Hypertension or CAD
Review of Systems
Review of Systems
All Other Systems: ROS reviewed and negative except as documented in HPI and ROS
Constitutional: Reports no symptoms
EENT: Reports no symptoms
Respiratory: Reports no symptoms
Cardiac: Reports no symptoms
ABD/GI: Reports no symptoms
: Reports no symptoms
Musculoskeletal: Reports no symptoms
Skin: Reports no symptoms
Neurological: Reports no symptoms
Endocrine: Reports no symptoms
Hematologic/Lymphatic: Reports no symptoms
Phy Exam
Physical Exam
Physical Exam:
Physical Exam
General: no apparent distress, not acutely ill
Neck: No jaundice
Heart: Regular
Lungs: no acute respiratory distress. clear bilaterally
Abdomen: Not tender
Neuro: alert and oriented. no focal neurological deficits clear speech normal finger-nose bilaterally 5-5 upper and lower no facial palsy
Skin: no rash
Psychiatric: well kept. interactive and cooperative
Extremities: no edema.
Course
Orders/Labs/Results
Orders:
Orders
01/22/24 19:01
EKG [Electrocardiogram (*1)] Urgent
Reason for Study: Other
Other Reason for Exam: tia/cva
01/22/24 19:02
EKG- Treatment ONCE
01/22/24 19:03
CT Head W/o Iv Contrast Urgent
Comment:
Reason For Exam: cofusion
01/22/24 19:07
Complete Blood Count/No Diff Urgent
Comprehensive Metabolic Panel Urgent
Abnormal Lab Results
01/22/24 01/22/24
19:04 19:07
Hgb 11.8 L g/dL
(12.0-16.0)
Hct 36.8 L %
(37.0-47.0)
MCHC 32.1 L g/dL
(33.0-37.0)
BUN 18 H mg/dl
(7-17)
Glucose 101 H mg/dl
(70-99)
POC Glucose 108 H mg/dl
(70-99)
01/22/24 19:07
01/22/24 19:07
Vital Signs
Initial and Last Documented VS:
Initial Vital Signs
Temp Pulse Resp BP Pulse Ox
98.4 F 92 18 156/98 95
01/22/24 18:52 01/22/24 18:52 01/22/24 18:52 01/22/24 18:52 01/22/24 18:52
Last Documented Vital Signs
Temp Pulse Resp BP Pulse Ox
98.4 F 83 17 171/71 96
01/22/24 18:52 01/22/24 19:09 01/22/24 19:09 01/22/24 19:09 01/22/24 19:09
MDM/Problems Addressed
Differential Diagnosis Includes:
TIA, arrhythmia, conceivable seizure, electrolyte abnormality deconditioning TGA
MDM/Problems Addressed:
Confusion
Chronic conditions affecting care:
Prior A-fib not anticoagulated status post Watchman
Chronic conditions affecting care: Arrhythmia
Acute Exacerbation and/or Progression of Chronic Illness: Arrhythmia (Prior A-fib not anticoagulated status post Watchman)
*Radiology
Radiology exam reviewed: preliminary read by ED provider
*Pulse Oximetry
Patient hypoxic: no
*EKG
Interpreted by ED Provider?: Yes
Interpretation: normal
Comparison EKG: no comparison EKG present
Heart Rate: 78
Rate: normal
Rhythm: sinus
QRS Pattern: normal QRS
Ischemia: no ischemia
*Director Of Cath Lab Interpretation
Rate: normal
Interpretation: normal
Heart Rate: 78
Rhythm: sinus
*Critical Care Note
Total Time (30-74mins, 75-104mins- exclusive of procedures): Not Applicable
Data Reviewed
Review of Other/Old Records Reveals: Labs, Records, Progress Notes and Discharge Summary
Source: patient, records and family
Update Note
Update Note:
8 PM labs noted EKG noted CT of the head noted report noted
Blood pressure 170/70 patient appears at her baseline understandably hesitant to go home reviewed inpatient and outpatient management, if she would go home I would recommend restarting her aspirin at least she like to think about that the meantime
she prefers to be admitted which is not unreasonable due to her history I did tell them this all may be TGA or similar
ED Attending Note
-
Portions of this chart may have been created with voice recognition software.� Occasional wrong word or��sound alike� substitutions may have occurred due to the inherent limitations of voice recognition software.
Discharge Plan
Departure
Patient Disposition: Admit
Date of Disposition: 01/22/24
Time of Disposition: 20:53
Admit to: Telemetry
Presentation/result/management discussed w/ accepting MD/DO: Hospitalist
Patient with high blood pressure during this ER visit?: Yes
Condition: Good
Covid-19: Not Applicable
Discharge Problem:
TIA versus TGA
Prescriptions:
No Action
atorvastatin 20 MG tablet
20 mg PO DAILY
melatonin 3 MG tablet
3 mg PO HSPRN PRN (Reason: insomnia)
diltiazem HCl 180 MG capsule,extended release 24hr
180 mg PO HS
cholecalciferol (vitamin D3) [Vitamin D3] 25 mcg (1,000 unit) Capsule
25 mcg PO DAILY
multivitamin Tablet
1 tab PO DAILY
ascorbic acid (vitamin C) [Vitamin C] 500 mg Tablet
500 mg PO DAILY Qty: 0
acetaminophen [Tylenol 8 Hour] 650 mg Tablet Extended Release
1,300 mg PO Q8HPRN PRN (Reason: mild pain)
budesonide 3 mg Capsule,Delayed,Extend.Release
3 mg PO DIRECTED
Patient Comments:
01/22/2024: '3 capsules oral daily for 6 weeks, then 2 capsules oral daily for 2 weeks, then 1 capsule oral daily for 2 weeks then stop. as directed'
losartan 100 mg Tablet
100 mg PO DAILY
sertraline 50 mg Tablet
50 mg PO HS
Interventions
Interventions:
*Risk Screen - Suicide Last Done: 01/22/24 18:52
*Neglect/Abuse Screening Last Done: 01/22/24 18:52
ED- Fall Risk Assessment Last Done: 01/22/24 19:10
ED- Pulmonary Assessment Last Done: 01/22/24 19:50
ED- Neurological Assessment Last Done: 01/22/24 19:37
ED- Cardiac Assessment Last Done: 01/22/24 19:10
Discharge Date and Time
Print Language: LATVIAN
[2024-01-22 19:33] LABS: ALT (SGPT) 25 U/L (0-35); AST (SGOT) 25 U/L (14-36); Albumin 4.1 g/dl (3.5-5.0); Alkaline Phosphatase 90 U/L (38-126); Blood Urea Nitrogen 18 mg/dl (7-17); Calcium 9.6 mg/dl (8.4-10.2); Carbon Dioxide 28 mmol/L (22-30); Chloride 102 mmol/L (98-107); Glucose 101 mg/dl (70-99); Potassium 3.8 mmol/L (3.5-5.1); Sodium 140 mmol/L (135-145); Total Bilirubin 0.8 mg/dl (0.2-1.3); eGFR > 60.00
[2024-01-22 19:38] VITALS: BMI 23.8
[2024-01-22 20:31] VITALS: BP 170/74
--- NOTE | 2024-01-22 20:42 | HPS.HSE ---
Family Physician
-
Family Physician:
Chief Complaint
-
lightheadedness
History of Present Illness
83-year-old female with past medical history for A-fib, CAD, congestive heart failure, hypertension, hyperlipidemia, hypothyroidism, colitis presented to us with period of confusion and forgetfulness. She felt lightheaded, could not think of
words. tried to call 911 but could not remember the number. she called her daughter and was repeatedly saying ' something is wrong'. Lasted for 30 minutes. Patient denies any headache or syncopal episode. Patient denied chest pain, short of
breath. Patient denied abdominal pain, nausea, vomiting, diarrhea. Patient denied dysuria hematuria. she has a history of A-fib previously on Eliquis stopped due to bleeding and hemarthrosis underwent Watchman procedure, most recent cardiology
evaluation was told she can stop her aspirin.
CT head negative. Admitting for further management
Medical History
Past Medical History
Past Medical History: Reports Other
Additional Past Medical History:
Hypothyroidism
Thoracic aortic aneurysm
hypertension
Colonic polyp
hyperlipidemia
Paroxysmal A-fib
Coronary artery disease
SVT
GERD
Hiatal hernia depression
Past Surgical History: Reports Other
Additional Past Surgical History:
Left cataract surgery
[place] with BSO
Bilateral knee replacement
Hemicolectomy
Appendectomy
Tubal ligation
Social History
Tobacco: Non-smoker
Alcohol: None
Drug: None
Personal: Single
Living: Alone
Family History
Family History: Not pertinent
Allergies / Home Medications
Allergies reflects when Allergies were last updated in [facility].
Home Medications with original date entered in [facility]
Allergy/Medication List:
Allergies
Allergy/AdvReac Type Severity Reaction Status Date / Time
codeine Allergy Nausea / Verified 01/22/24 18:55
Vomiting
doxycycline Allergy Nausea Verified 01/22/24 18:55
escitalopram [From Lexapro] Allergy diarrhea Verified 01/22/24 18:55
morphine Allergy Nausea / Verified 01/22/24 18:55
Vomiting
Penicillins Allergy diarrhea Verified 01/22/24 18:55
apixaban [From Eliquis] AdvReac Unknown hemarthrosi Verified 01/22/24 18:55
s
Home Medications
atorvastatin 20 mg tablet 20 mg PO DAILY High cholesterol 02/14/19
melatonin 3 mg tablet 3 mg PO HSPRN PRN insomnia 02/14/19
diltiazem HCl 180 mg capsule,extended release 24 hr 180 mg PO HS Blood Pressure 08/21/22
acetaminophen 650 mg tablet,extended release (Tylenol 8 Hour) 1,300 mg PO Q8HPRN PRN mild pain 05/07/23
ascorbic acid (vitamin C) 500 mg tablet (Vitamin C) 500 mg PO DAILY ##0 05/07/23
cholecalciferol (vitamin D3) 25 mcg (1,000 unit) capsule (Vitamin D3) 25 mcg PO DAILY Supplement 05/07/23
multivitamin 1 tab PO DAILY Supplement 05/07/23
budesonide 3 mg capsule,delayed,extended release 3 mg PO DIRECTED 01/22/24
losartan 100 mg tablet 100 mg PO DAILY 01/22/24
sertraline 50 mg tablet 50 mg PO HS 01/22/24
Review of Systems
-
Constitutional: Reports No Symptoms
EENT: Reports No Symptoms
Respiratory: Reports No Symptoms
Cardiac: Reports No Symptoms
Abdomen/GI: Reports No Symptoms
: Reports No Symptoms
Musculoskeletal: Reports No Symptoms
Skin: Reports No Symptoms
Neurological: Reports Other (Lightheaded)
Endocrine: Reports No Symptoms
Hematologic/Lymphatic: Reports No Symptoms
Psych: Reports No Symptoms
Physical Exam
Vital Signs
Vital Signs
Temp Pulse Resp BP Pulse Ox
98.4 F 83 17 171/71 96
01/22/24 18:52 01/22/24 19:09 01/22/24 19:09 01/22/24 19:09 01/22/24 19:09
Physical Exam
General: Well Developed, Well Nourished and No Apparent Distress
HEENT: NormoCephalic, Moist mucous membranes and Atraumatic
Respiratory: Clear
Cardiac: S1/S2 and Regular Rhythm; No Murmur or Rub
GI: Soft, Non Tender, Non Distended and Normal Bowel Sounds; No Organomegaly
Rectal: Deferred by Provider
Musculoskeletal: No Clubbing, No Cyanosis and No Edema
Skin: No Rash
Neuro: AO x 3 and Nonfocal/grossly intact
Psych: Calm
Laboratory Results
-
01/22/24 19:07
01/22/24 19:07
Laboratory Results
Total Bilirubin 0.8 mg/dl (0.2-1.3) 01/22/24 19:07
AST 25 U/L (14-36) 01/22/24 19:07
ALT 25 U/L (0-35) 01/22/24 19:07
Alkaline Phosphatase 90 U/L (38-126) 01/22/24 19:07
Data Reviewed
-
CT Scan: Report Reviewed by me
Lab Data: Labs Reviewed by me
Impression/Plan
-
# lightheaded/ forgetfulness R/o TIA
-Head CT with impression of No acute intracranial abnormality noted. Chronic senescent changes.
-EKG with normal sinus rhythm
-obtain MRI/MRA
-statin
-obtain lipid profile, a1c
-PT/OT
-speech eval
-asa
-gave a dose of 300asa in ER
-neuro consult
#Essential hypertension--continue losartan and diltiazem with parameters
#Paroxysmal atrial fibrillation--continue diltiazem and aspirin--off anticoagulation due to hemarthrosis due to Eliquis
#Hyperlipidemia--continue atorvastatin
#Depression--continue Zoloft
#DVT prophylaxis
#CODE STATUS--full code
[2024-01-22 21:00] VITALS: BP 163/74
[2024-01-22] MEDS: ASPIRIN 325 MG PO (21:15)
--- NOTE | 2024-01-22 21:26 | W.PN.UPDATE ---
Update Note
Progress Note Update
This is an addendum to the H&P written by EVY Yancey on 01/22/2024.
Patient seen and examined independently with FLIGHT CONTROL SPECIALIST. 83-year-old female past medical history of paroxysmal atrial fibrillation previously on anticoagulation status post Watchman status post discontinuation of aspirin and increase in Blood pressure
medication last week presenting with episode of dizziness followed by confusion and difficulty being able to think of words. This lasted half an hour. No motor, sensory symptoms, headache, slurred speech or facial droop. Examination unremarkable.
EKG shows normal sinus rhythm. CT head shows no acute abnormality.
Likely TIA vs less likely TGA. Aspirin and Plavix. Check A1c and lipid panel. Check MRI/MRA head and neck. Neurology consulted. Continue antihypertensives.
[2024-01-22] MEDS: PLAVIX 300 MG PO (21:40)
[2024-01-22 21:52] VITALS: BMI 23.8
[2024-01-22 22:00] VITALS: BP 190/90; BMI 23.8
[2024-01-22] MEDS: CARDIZEM CD 180 MG PO (22:34)
[2024-01-22] MEDS: ZOLOFT 50 MG PO (22:34)
[2024-01-23 03:05] VITALS: BP 173/92
--- NOTE | 2024-01-23 03:12 | DOWNTIME ---
There was a [employer] Downtime on 01/22/2024 from 0100 to 01/23/2024 at 0300. Downtime documentation of patient's care, including medication administrations, has been reconciled in the electronic record per guidelines. Refer to the
patient's paper chart under the miscellaneous tab to see printed paper medication records and downtime forms.
[2024-01-23] MEDS: TUMS 1 TABLET PO (03:35)
[2024-01-23 04:01] VITALS: BMI 23.6
[2024-01-23 06:52] LABS: Hematocrit 36.9 % (37.0-47.0); Hemoglobin 12.1 g/dL (12.0-16.0); Mean Corp Hgb Conc. 32.8 g/dL (33.0-37.0); Mean Corpuscular Hgb 27.3 pg (27.0-31.0); Mean Corpuscular Volume 83.1 fL (81.0-99.0); Mean Platelet Volume 9.9 fL (7.4-10.4); Platelet Count 314 10^3/uL (130-400); Red Blood Cell Count 4.44 10^6/uL (4.20-5.40); Red Cell Dist. Width 14.1 % (11.5-14.5); White Blood Cell Count 7.8 10^3/uL (4.8-10.8)
[2024-01-23 07:00] VITALS: BP 170/99
[2024-01-23 07:41] LABS: Blood Urea Nitrogen 14 mg/dl (7-17); Calcium 9.7 mg/dl (8.4-10.2); Carbon Dioxide 28 mmol/L (22-30); Chloride 104 mmol/L (98-107); Estimated Creatinine Clearance 57 ml/min; Glucose 88 mg/dl (70-99); HDL Cholesterol 96 mg/dl; LDL Cholesterol, Calculated 45 mg/dl; Potassium 3.5 mmol/L (3.5-5.1); Sodium 140 mmol/L (135-145); Total Cholesterol 158 mg/dl (50-199); Triglyceride 86 mg/dl (10-149); Very Low Density Lipoprotein 17 mg/dl (0-30); eGFR > 60.00
--- NOTE | 2024-01-23 08:02 | CON.NEURO4 ---
Addendum entered and electronically signed by Maksim Reyes MD 01/23/24 10:47:
I saw and evaluated the patient I reviewed the note by Mahnaz Dinh agree with the findings the following comments:
83-year-old right-handed woman with a past medical history of atrial fibrillation status post Watchman device, GI bleeding, previous lower extremity bleeding instances as well as hemarthrosis presents to hospital with around 30 to 45 minutes of
neurologic symptoms with confusion and memory difficulty and perhaps some right hand incoordination and weakness.
Patient reports she has been in her normal state of health no further recent bleeding issues after recent hospitalization in which she had colon polyp removed. She had cardiology visit with Dr. Reinier Burton on January 14 who recommended continuing
aspirin but the patient seems to have misunderstood directions and actually stopped taking aspirin.
She was in her home this morning when she seemed to have an unusual feeling, over her that is hard to describe, she felt like if she needed to make a phone call she would be able to proper phone numbers. She was able to call her daughter using her
name and her smart phone, daughter that something seemed off on the phone and called 911 and patient was brought to the ER. Patient thinks that she may have had some dropping of cat food around 3 times during this episode at home. She did not have
any headache or unilateral paresthesia.
Patient feels back to normal at this time. She does feel like she has been stressed due to relations with her son-in-law and she feels a bit lonely. She does have a cat at home to bring abhinav to her and talks with a friend over the phone.
She has had evaluation at [facility] neurology regarding enlarged ventricles on brain images, was felt that she does not have normal pressure hydrocephalus that had other explanations for her gait dysfunction.
Blood pressure has been elevated to the 190s maximum systolic here in the hospital
Neurologic examination shows some mild memory impairment with 1/3 memory recall after 5-minutes, difficulty with naming the months of the year backwards, draws a clock appropriately, no deficits of cranial nerve. Motor strength is good for
shoulder abduction arm flexion hip abduction ankle dorsiflexion and plantarflexion and hip flexion bilaterally.
CT head noncontrast shows enlarged ventricles which appear symmetric and there is generalized atrophy in the brain no acute infarct or hemorrhage or masses are seen.
Assessment: Possible TIA in a patient with atrial fibrillation status post Watchman device who had recently come off aspirin.
I do feel it is unlikely that the patient has normal pressure hydrocephalus based on longstanding stable brain imaging finding of ventriculomegaly, multifactorial reasons for gait disorder with degenerative disc disease and osteoarthritis.
Recommendations
-Would resume aspirin single antiplatelet monotherapy given her history of GI bleed and bleeding issues in the past
-Allow for permissive hypertension goal less than 220/120 until MRI brain to evaluate for stroke
-Neurologic checks and NIH stroke scale
-Minimize sedating medications
-Check MRI of the brain and MRA of the head and neck
-I do not feel that she would need further investigation into large ventricles seen on brain imaging
-Would benefit from some outpatient cognitive testing like MOCA or MMSE
-Encouraged her to go to spiritism or senior groups as she does feel a bit lonely
Will follow
Original Note:
Documented by User: Mahnaz Mackay NP 01/23/24 10:09
Consultation - Neurology 4
-
CONSULTING PHYSICIAN: Celena Reyes MD
REFERRING PHYSICIAN: Hospitalists/NENA Ruffin
DICTATED BY: NENA Smyth
DATE/TIME OF REQUEST: 01/22/24
DATE/TIME OF CONSULTATION: 01/23/24
Reason for Consultation: Confusion
History of Present Illness:
This is an 83-year-old right-handed female who has presented to the hospital on 01/22/24 with report of confusion and word finding difficulty. Patient reports feeling in her usual state yesterday morning (01/22/24). She drove and went grocery
shopping without any issues. Around 1630 she reports that she started to feel 'strange' but cannot describe this further. She tried to feed her cat but dropped the can of cat food from her right hand three times. She tried to think of how to call
911 in case she needed help, and she couldn't remember how to call for help. She was able to call her daughter and reports being able to tell her that something wasn't right, but she reports having word finding difficulty and couldn't get all of her
thoughts out. Her daughter thought she sounded scared and confused on the phone and called 911. CT head was obtained in the ER and is negative for any acute abnormalities. Blood pressure was 156/98 on arrival but was elevated up to 190/90 overnight.
Patient thinks the entire episode lasted for about 45 minutes but isn't entirely sure. Today, she reports feeling almost at her baseline. She denies any headache, dizziness, speech/swallow difficulty, nausea, numbness, weakness, chest pain,
palpitations, and shortness of breath.
She has Afib and was formerly on anticoagulation with Coumadin followed by [facility] but had complications including hemarthrosis. After sustaining a hip fracture from a fall in 2020 she developed b/l calf DVTs and a Watchman device was placed. She
had a polypectomy on 12/05/23 and had some GI bleeding following that while taking aspirin 81mg but denies any further bleeding since then. She reports that her Bath Tester told her to stop taking aspirin 81mg daily a few weeks ago, but per
outpatient encounter with Dr. Burton on 01/15/24 she was instructed to continue aspirin 81mg daily. Her blood pressure was also elevated at that office visit at 148/84 and her home losartan dose was increased to 100mg daily. She has been evaluated by
our inpatient Neurology service once in 2014 for starring episodes/near syncope. EEG and MRI brain were obtained at that time and were negative for any acute abnormalities. She has been evaluated outpatient by Neurology Dr. Benitez in the 07/2022 for
report of confusion and inability to remember how to write letters following a cardiac ablation. CT head was obtained and demonstrated moderate brain atrophy, severe chronic white matter disease, and ventricular enlargement. MMSE was 28/30 at that
time. She was having some urinary incontinence at the time and had one fall, and was subsequently referred to [facility] for NPH evaluation. She saw Dr. Chapo Pisano in December 2022 who noted left foot drop felt her gait dysfunction was more
related to a lumbar spine issue. She completed pelvic floor PT and reports that she still has urinary urgency but less frequent episodes of incontinence since then. She has been using a cane for ambulation for about one year. She does have a walker
because she has had vertigo in the past and needs it when that happens, but she hasn't had an episode of vertigo in 5-10 years now. She had one fall about one month ago in the setting of diarrhea, she reports she just collapsed but was able to get
back up off the ground. She cannot recall how often she falls but it is several times per year at least. She lives alone. She is still driving and denies getting lost or any accidents. She reports significant family stressors due to estranged
relationships and her son-in-law who has control of her finances. She reports episodes of depression due to her family stressors but has never had an episode like this happen before.
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
thyroid nodule, hiatal hernia, liver cyst, glaucoma, DJD, agraphia, mild cognitive impairment
Surgical History: Cardiac ablation x2, LINQ, watchman device, left hip hemiarthroplasty, appendectomy, bowel resection w/ colostomy s/p reversal, b/l TKR, polypectomy complicated by staph infection, ALY with BSO, left breast biopsy, L4-L5 ILESI
injections
Family History: Brother- CVA
Social History: Denies tobacco, alcohol, and illicit drug use.
Allergies: Doxycycline, escitalopram, morphine, penicillins, codeine, apixaban.
Home Medications: See below.
Review of Symptoms:
Patient denies any fever, headache, chest pain, shortness of breath, GI or symptoms.
�Per the HPI.�All systems are reviewed negative except above.
Physical Exam:
The patient is afebrile, abdomen is nondistended, breathing is unlabored, skin is warm and dry, no edema.
NIH Stroke Scale:
I performed the NIH stroke scale on the patient on 01/23/24 at 0840. The patient scored 0 points on the NIH stroke scale assessment, which were assigned as follows: See below.
Neurologic Examination:
The patient is awake, alert and oriented to person, place, month, and situation, no year. Severe difficulty naming the months of the year backwards, only made it until April. No difficulty with simple math calculations. no difficulty drawing a
clock/time. 1/3 word recall, 2/3 with hints, unable to remember 3rd word with hints. She is able to follow commands and answer questions appropriately. There is no aphasia or dysarthria. On cranial nerve assessment, pupils are 3 mm bilateral, round
and reactive to light and accommodation. Visual grigsby are full. Extraocular movements are intact. Facial sensations are intact and bilaterally symmetrical, there is no facial asymmetry. Hearing is diminished bilaterally to normal conversation
volume (hearing aids). Tongue palate and uvula are midline. Sternocleidomastoid strengths are full bilaterally. Motor strengths are 5/5 bilateral upper and lower extremities on medical research [place] scale. There is no drift or involuntary
movement noted. Deep tendon reflexes are 1+ bilateral upper and absent bilateral lower extremities and Babinski is absent bilaterally. Sensations of touch, temperature and vibration are intact and bilaterally symmetrical. There was no extinction
noted on double simultaneous stimulation. Coordination is intact by finger to nose bilaterally.
Lab Results: See below.
Neuro Imaging:
1. CT Head 01/22/24: No acute intracranial abnormality noted. Chronic senescent changes.
Differentials for the patient's presentation include:
1. TIA or small stroke possibly producing confusional episode.
2. Metabolic abnormality or hypertensive encephalopathy possibly contributing to symptoms.
3. Mild cognitive impairment at baseline.
4. Low ferritin level.
Patient has the following risk factors for their symptoms: Afib, DVTs, stopped aspirin, HTN, HLD, age
IV Tenecteplase/IAT candidacy: She was not a candidate for IV TNK/IAT due to low NIHSS, improved symptoms.
Recommendations:
-Would resume and continue aspirin 81mg daily, indefinitely. Discontinue aspirin.
-Permissive hypertension SBP<220, DBP<120 until 1600 today, then goal normotension.
-MRI brain, MRA head/neck ordered/pending.
-Ferritin level is low at 8.3. Iron replacement per primary team.
-Checking blood work for metabolic abnormalities.
-LDL goal <70. LDL is 45. Okay to continue home atorvastatin 20mg daily as LDL is at goal.
-Goal normoglycemia, hbA1c is pending.
-NIHSS and neurological checks per unit guidelines.
-Provide patient with a stroke education packet.
-PT/OT/ST evaluations.
-DVT prophylaxis.
-Neuropsychological testing as an outpatient.
-Will follow pending results.
Discussed patient care with: Dr. Reyes, the patient
Vital Signs and Labs
-
Vital Signs and Labs:
Vital Signs
Temp Pulse Resp BP Pulse Ox
97.9 F 100 18 170/99 94
01/23/24 07:00 01/23/24 07:00 01/23/24 07:00 01/23/24 07:00 01/23/24 07:00
Lab Results
01/23/24 06:24
01/23/24 06:24
Sodium 140 mmol/L (135-145) 01/23/24 06:24
Potassium 3.5 mmol/L (3.5-5.1) 01/23/24 06:24
BUN 14 mg/dl (7-17) 01/23/24 06:24
Glucose 88 mg/dl (70-99) 01/23/24 06:24
Calcium 9.7 mg/dl (8.4-10.2) 01/23/24 06:24
LDL Cholesterol, Calc 45 mg/dl 01/23/24 06:24
Vitamin B12 423 pg/ml (239-931) 01/23/24 06:24
Medications
-
Active Medications
Generic Name Dose Route Start Last Admin
Trade Name Freq PRN Reason Stop Dose Admin
Acetaminophen 650 mg 01/22/24 22:05
Acetaminophen 650 Mg Rectal Suppository RECTAL 02/19/24 22:04
Q4HPRN PRN
HELTON, mild pain, or temp >100.4F
Acetaminophen 650 mg 01/22/24 22:05
Acetaminophen 325 Mg Tablet PO 02/19/24 22:04
Q4HPRN PRN
HELTON, mild pain, or temp >100.4F
Aspirin 81 mg 01/23/24 08:00 01/23/24 08:39
Aspirin 81 Mg Chewable Tablet PO 02/20/24 07:59 81 mg
DAILY BRYCE Administration
Atorvastatin Calcium 40 mg 01/23/24 08:00 01/23/24 08:39
Atorvastatin (Lipitor) 20 Mg Tablet PO 02/20/24 07:59 40 mg
DAILY BRYCE Administration
Budesonide 9 mg 01/23/24 08:00 01/23/24 08:40
Budesonide 3 Mg Capsule PO 03/04/24 08:01 9 mg
DAILY BRYCE Administration
Budesonide 6 mg 03/05/24 08:00
Budesonide 3 Mg Capsule PO 03/18/24 08:01
DAILY BRYCE
Budesonide 3 mg 03/19/24 08:00
Budesonide 3 Mg Capsule PO 04/01/24 08:01
DAILY BRYCE
Calcium Carbonate 1 tablet 01/23/24 02:51 01/23/24 03:35
Calcium Carbonate 500 Mg (Regular-Strength) Chew Tablet PO 02/20/24 02:50 1 tablet
Q4HPRN PRN Administration
INDIGESTION
Diltiazem HCl 180 mg 01/22/24 22:05 01/22/24 22:34
Diltiazem 180 Mg Extended Release (24 H) Capsule PO 02/19/24 22:04 180 mg
HS BRYCE Administration
Losartan Potassium 100 mg 01/23/24 08:00 01/23/24 08:39
Losartan 100 Mg Tablet PO 02/20/24 07:59 100 mg
DAILY BRYCE Administration
Melatonin 3 mg 01/22/24 22:05
Melatonin 3 Mg Tablet PO 02/19/24 22:04
HSPRN PRN
insomnia
Sertraline HCl 50 mg 01/22/24 22:05 01/22/24 22:34
Sertraline 50 Mg Tablet PO 02/19/24 22:04 50 mg
HS BRYCE Administration
Sodium Chloride 0 flush 01/22/24 22:00
Sodium Chloride 0.9% (Flush) Syringe IV 02/19/24 21:59
PER PROTOCOL BRYCE
Home Medications
�Medication �Instructions �Recorded
atorvastatin 20 mg tablet 20 mg PO DAILY High cholesterol 02/14/19
melatonin 3 mg tablet 3 mg PO HSPRN PRN insomnia 02/14/19
diltiazem HCl 180 mg 180 mg PO HS Blood Pressure 08/21/22
capsule,extended release 24 hr
acetaminophen 650 mg 1,300 mg PO Q8HPRN PRN mild pain 05/07/23
tablet,extended release (Tylenol 8
Hour)
ascorbic acid (vitamin C) 500 mg 500 mg PO DAILY ##0 05/07/23
tablet (Vitamin C)
cholecalciferol (vitamin D3) 25 25 mcg PO DAILY Supplement 05/07/23
mcg (1,000 unit) capsule (Vitamin
D3)
multivitamin 1 tab PO DAILY Supplement 05/07/23
budesonide 3 mg 3 mg PO DIRECTED 01/22/24
capsule,delayed,extended release
losartan 100 mg tablet 100 mg PO DAILY 01/22/24
sertraline 50 mg tablet 50 mg PO HS 01/22/24
NIH Stroke Score
Subsequent NIH Scale
Date of Subsequent NIH Scale: 01/23/24
Time of Subsequent NIH Scale: 08:40
NIH Stroke Score
Level of Consciousness: 0 - Alert
LOC Questions: 0-Answers both correctly
LOC Commands: 0-Performs both correctly
Best Horizontal Gaze: 0-Normal
Visual Grigsby: 0=Normal, no visual loss
Facial Palsy: 0=Normal, symmetrical
Motor - Right Arm: 0=No drift 10 seconds
Motor - Left Arm: 0=No drift 10 seconds
Motor - Right Le-No drift 5 seconds
Motor - Left Le-No drift 5 seconds
Limb Ataxia: 0-Absent
Sensation: 0-Normal
Best Language: 0-No aphasia
Dysarthria: 0-Normal
Extinction and Inattention: 0-No abnormality
Total Score:: 0

Documented by User: Maksim Reyes MD 01/23/24 10:40
NIH Stroke Score
NIH Stroke Score
Total Score:: 0
[2024-01-23] MEDS: LIPITOR 40 MG PO (08:39)
[2024-01-23] MEDS: COZAAR 100 MG PO (08:39)
[2024-01-23] MEDS: LOW STRENGTH ASPIRIN 81 MG PO (08:39)
[2024-01-23] MEDS: ENTOCORT EC 9 MG PO (08:40)
[2024-01-23 09:33] LABS: TSH Reflex To Free T4 5.45 uIU/ml (0.47-4.68)
[2024-01-23 09:37] LABS: Ferritin 8.3 ng/ml (11.1-264.0)
[2024-01-23 10:08] LABS: Folate > 20.0 ng/ml (2.76-20); Vitamin B12 423 pg/ml (239-931)
[2024-01-23 10:28] LABS: Free T4 1.03 ng/dl (0.78-2.19)
[2024-01-23 11:00] VITALS: BP 140/81
--- NOTE | 2024-01-23 11:07 | W.PN.HOSP.TC ---
Addendum entered and electronically signed by Eric Garnica MD 01/23/24 13:23:
Case discussed with Dr. Reyes. Patient likely had TIA due to stopping her aspirin. She is medically cleared for discharge at this time.
Total time spent on d/c = 31 min. This included today's physical exam, progress note, review of laboratory and diagnostic data, preparation of discharge documents and prescriptions, and discussions about the pt's hospital course and discharge plan
with the patient and other medical device involved in the patient's care.
Original Note:
Today's Communication/Plan
-
see bold
Assessment / Plan
Assessment / Plan
Gen: NAD, Awake and alert
Eyes: EOMI, PERRLA, no scleral icterus.
Neck: supple.
CV: tachy, reg rhythm, +S1/S2, no m/r/g.
Resp: CTAB, no rales, wheezes, or rhonchi.
Abd: +BS, soft, NT, ND
Skin: No rashes.
Neuro: CN 2-12 intact, non-focal.
Psych: Normal mood and affect.
lightheaded/forgetfulness:
-admitted for concern for TIA
-CT brain: No acute intracranial abnormality noted. Chronic senescent changes.
-EKG with normal sinus rhythm
-MRI/MRA head/neck pending
-cont ASA/statin
-a1c 6.0%, LD 45
-PT/OT
-neuro consult
Other problems:
Essential hypertension: continue losartan/diltiazem
Paroxysmal atrial fibrillation: continue diltiazem/ASA (off anticoagulation due to hemarthrosis due to Eliquis)
Hyperlipidemia: continue atorvastatin
Depression: continue Zoloft
FULL/SCDs + Lovenox
Anticipated Discharge: Within 24 hours
Subjective/Interval History
-
Date of Service: January 23, 2024
Objective Data
-
Labs:
Laboratory Results
01/23/24
06:24
WBC 7.8
Hgb 12.1
Hct 36.9 L
Plt Count 314
Sodium 140
Potassium 3.5
Chloride 104
Carbon Dioxide 28
BUN 14
Creatinine 0.5 L
Glucose 88
Calcium 9.7
Vital Signs:
Vital Signs
Temp Pulse Resp BP Pulse Ox
97.9 F 100 18 170/99 94
01/23/24 07:00 01/23/24 07:00 01/23/24 07:00 01/23/24 07:00 01/23/24 07:00
I&O
01/22/24 01/23/24 01/24/24
06:59 06:59 06:59
Intake Total 400 / 400
Balance 400 / 400
[2024-01-23 12:52] VITALS: BP 140/81; PULSE 107
[2024-01-23 12:53] VITALS: BP 140/81
[2024-01-23 15:00] VITALS: BP 144/76
--- NOTE | 2024-01-23 15:24 | CM ---
Reviewed chart, met with patient to obtain information for assessment. Patient stated that she lives alone in a two story home with three steps to enter. Her daughter lives next door.
Patient described herself as independent with her ADLs, bathing, dressing, toileting and ambulates with a cane. She can do some director transportation, cook, clean and do laundry.
Patient uses a cane to assist with her ambulation at times. She also has a shower chair and a walk in shower.
Patient drives locally and can get to her appointments and do her own shopping however her daughter also assists with the shopping.
Patient has never had VN. She has never been to a SNF before.
Patient has a prescription plan and uses [facility] in [place], [place].
Her PCP is, CAYDEN Iverson.
Patient is medically clear for discharge. She does not feel that she has any needs at this time. IMM reviewed and on chart.
Plan: Case management will continue to follow and assist with discharge planning. Patient would like to return home.
--- NOTE | 2024-01-24 14:08 | W.DCSUMMARY ---
Discharge Summary
Discharge Data
Date of Admission: 01/22/24
Date of Discharge: 01/23/24
-
Pending Results: No
Hospital Course
Primary diagnoses:
Transient ischemic attack
Secondary diagnoses:
Essential hypertension
Paroxysmal atrial fibrillation
Hyperlipidemia
Depression
Consultants:
Neurology
Imaging:
CT brain: No acute intracranial abnormality noted. Chronic senescent changes.
MRI brain: No MRI evidence for an acute infarct.
MRA head: Normal MRA of the [place] of [place].
MRA neck: Normal MRA of the neck.
Hospital course: 83-year-old female presented with chief complaints of lightheadedness and forgetfulness and was admitted for concern for TIA as outlined in the H&P done on admission. All imaging above. No acute CVA was found on imaging. The
patient likely had a TIA due to noncompliance with aspirin. She was seen in consultation by neurology. She was continued on her statin and was instructed to resume her aspirin. She was discharged in medically stable condition.
Discharge Plan
-
Patient Disposition: Home (Routine Discharge)
Discharge Diagnosis/Procedures: Transient ischemic attack
Condition: Good
Diet: Low Cholesterol
Driving Restrictions: Not until seen by your Dr
Bathing Restrictions: None
Referrals:
Eric Wharton PA [Family Provider] - in less than 1 week
Prescriptions:
New
aspirin [Children's Aspirin] 81 mg Tablet,Chewable
81 mg PO DAILY Qty: 0 0RF
Continued
atorvastatin 20 MG tablet
20 mg PO DAILY
melatonin 3 MG tablet
3 mg PO HSPRN PRN (Reason: insomnia)
diltiazem HCl 180 MG capsule,extended release 24hr
180 mg PO HS
cholecalciferol (vitamin D3) [Vitamin D3] 25 mcg (1,000 unit) Capsule
25 mcg PO DAILY
multivitamin Tablet
1 tab PO DAILY
ascorbic acid (vitamin C) [Vitamin C] 500 mg Tablet
500 mg PO DAILY Qty: 0
acetaminophen [Tylenol 8 Hour] 650 mg Tablet Extended Release
1,300 mg PO Q8HPRN PRN (Reason: mild pain)
budesonide 3 mg Capsule,Delayed,Extend.Release
3 mg PO DIRECTED
Patient Comments:
01/22/2024: '3 capsules oral daily for 6 weeks, then 2 capsules oral daily for 2 weeks, then 1 capsule oral daily for 2 weeks then stop. as directed'
losartan 100 mg Tablet
100 mg PO DAILY
sertraline 50 mg Tablet
50 mg PO HS
Discharge Orders:
Discharge Patient (As Directed); Ordered 01/23/24
Ordered By: Eric Garnica
Discharge Date and Time
Discharge Date/Time: 01/23/24 16:06
Print Language: CITIZEN [place]
== END 2024-01-23 16:06 | disposition home or self-care (01) | DRG 69 ==
LOC: 3 WEST ACU 21:36
PROVIDERS: Registered Nurse; ADMITTING PHYSICIAN Hospitalist; ATTENDING PHYSICIAN Internal Medicine; EMERGENCY PHYSICIAN Emergency Medicine; FAMILY PHYSICIAN Physician Assistant; OTHER PHYSICIAN Student in an Organized Health Care Education/Training Program
DX: G45.9 Transient cerebral ischemic attack, unspecified (principal); I50.9 Heart failure, unspecified; I11.0 Hypertensive heart disease with heart failure; I48.0 Paroxysmal atrial fibrillation; E78.00 Pure hypercholesterolemia, unspecified; F32.A Depression, unspecified; Z79.82 Long term (current) use of aspirin; Z91.148 Patient's other noncompliance with medication regimen for other reason
CPT/HCPCS: 70450; 70544; 70548; 70551; 80048; 80053; 80061; 82607; 82728; 82746; 82962; 83036; 84439; 84443; 85027; 92523; 92610; 93005; 97162; 97166; 99285; A9585

== ENCOUNTER → 2024-09-30 09:22 | Outpatient (REF) | payer MEDICARE, OTHER, SELFPAY | LOC: PAVMRI 09:22 | PROVIDERS: ATTENDING PHYSICIAN Physical Medicine & Rehabilitation; FAMILY PHYSICIAN Physician Assistant | DX: M54.16 Radiculopathy, lumbar region (principal); M54.17 Radiculopathy, lumbosacral region | CPT/HCPCS: 72148 ==

== ENCOUNTER 2024-10-05 23:44 | Inpatient (IN) | payer MEDICARE, SELFPAY ==
[2024-10-05 16:39] VITALS: BP 186/110
[2024-10-05 17:03] LABS: % Basophils 2.3 % (0-2); % Eosinophils 2.1 % (0-6); % Immature Granulocytes 0.3 % (0-0.5); % Lymphocytes 39.2 % (20.5-51.1); % Monocytes 8.9 % (1.7-9.3); % Neutrophils 47.2 % (42.2-75.2); Absolute Basophils 0.2 10^3/uL (0-0.2); Absolute Eosinophils 0.2 10^3/uL (0-0.7); Absolute Monocytes 0.7 10^3/uL (0.1-0.6); Absolute Neutrophils 3.6 10^3/uL (1.4-6.5); Hematocrit 34.1 % (37.0-47.0); Hemoglobin 10.6 g/dL (12.0-16.0); Mean Corp Hgb Conc. 31.1 g/dL (33.0-37.0); Mean Corpuscular Hgb 22.8 pg (27.0-31.0); Mean Corpuscular Volume 73.3 fL (81.0-99.0); Mean Platelet Volume 8.9 fL (7.4-10.4); Nucleated Red Blood Cells % 0 %; Platelet Count 530 10^3/uL (130-400); Red Blood Cell Count 4.65 10^6/uL (4.20-5.40); Red Cell Dist. Width 16.9 % (11.5-14.5); White Blood Cell Count 7.7 10^3/uL (4.8-10.8)
[2024-10-05 17:25] LABS: ALT (SGPT) 25 U/L (0-35); AST (SGOT) 27 U/L (14-36); Albumin 4.5 g/dl (3.5-5.0); Alkaline Phosphatase 127 U/L (38-126); Blood Urea Nitrogen 14 mg/dl (7-17); Calcium 9.9 mg/dl (8.4-10.2); Carbon Dioxide 29 mmol/L (22-30); Chloride 97 mmol/L (98-107); Glucose 122 mg/dl (70-99); Potassium 4.2 mmol/L (3.5-5.1); Sodium 137 mmol/L (135-145); Total Bilirubin 0.6 mg/dl (0.2-1.3); Total Protein 7.8 g/dl (6.3-8.2); eGFR > 60.00
[2024-10-05 17:26] VITALS: BMI 22.0
[2024-10-05 18:34] LABS: Lipase 512 U/L (23-300)
--- NOTE | 2024-10-05 18:35 | ED.GENMED ---
History of Present Illness
General
Chief Complaint: Back Pain
Source: patient
Exam Limitations: none
Time Seen by Provider: 10/05/24 18:07
Nursing documentation reviewed up to this point in time: agreed with
History of Present Illness
History of Present Illness:
84-year-old female with a history of a AAA 2 cm in 2021, A-fib statu post cardioversion, loop recorder, DVT with a history of a IVC filter, large hiatal hernia presents for mid back pain that started about 3 or 4 days ago, there was no trauma. She
says she felt like she could not really get comfortable but nothing was making it better or worse. Then she started noticing she had epigastric pain, bloating and belching, she feels very gassy. She did have a bowel movement today but it was
mostly just a little stool and gas. She has not had any vomiting but feels nauseated. She has not had a fever or chills, urinary symptoms, bloody stool, diarrhea, chest pain, shortness of breath. Patient arrives with her daughter who checks in on
her daily. Patient has not really had much of an appetite but did eat a banana today and had no worsening of symptoms since eating. She does have a history of a peptic ulcer as well
patient tried Tums at home without relief
Past History
Past History
ED Past Medical History: Arrthythmia (Atrial fib), CAD, CHF, HTN, Hypercholesterolemia, Hypothyroidism and Other (PNA, Microscopic Colitis, Vertigo, DDD)
ED Past Surgical History: Appendectomy, Bowel resection, Gynecological (Hysterectomy), Orthopedic (Total L knee replacement) and Other (Polyps removed and then developed staph infection. Needed colostomy and then reversal)
Social History
Tobacco: Non-smoker
Alcohol: None
Personal:
Living: with family (Grandson)
Employment: Retired
Family History
Family History: Negative Diabetes, Hypertension or CAD
Review of Systems
Review of Systems
Allergies reviewed?: Yes
All Other Systems: Not applicable
Phy Exam
Physical Exam
Physical Exam:
GENERAL: Alert , in no apparent distress
EYE: pupils equal and reactive
NECK: Supple
ENT: o/p clr, mmm.
CARDIAC: Regular rate and rhythm .
LUNGS: Clear breath sounds bilaterally, no acute respiratory distress, no wheezes/rales/rhonchi
ABDOMEN: Soft, Bloated in the upper belly, minimal discomfort with palpation epigastric region, negative Garcia sign
, no r/g, no cvat, normal bowel sounds
NEUROLOGICAL: Alert and oriented, no focal neuro deficits
SKIN: Warm and dry, skin intact.
MUSCULOSKELETAL: No edema, well perfused. neg elijah's sign
PSYCH: Normal and appropriate interaction.
Course
Orders/Labs/Results
Orders:
Orders
10/05/24 16:41
Electrocardiogram (*1) Urgent
Reason for Study: Other
Other Reason for Exam: back pain
10/05/24 16:42
EKG- Treatment ONCE
10/05/24 16:51
Complete Blood Count/With Diff Urgent
Comprehensive Metabolic Panel Urgent
Lipase Urgent
Comment: ADD ON
10/05/24 17:25
Add On- LAB Urgent
Tests Added?: Lipase
10/05/24 18:17
Iohexol [Omnipaque] See Protocol PO NOW STA
Ondansetron Injectable [Zofran] 4 mg IV NOW STA
Pantoprazole [Protonix IV] 40 mg IV NOW STA
10/05/24 18:20
0.9% Sodium Chloride 500 ml [Nss] 500 ml IV BOLUS
10/05/24 18:25
CT Abd/Pel (IV only)-DH only Urgent
Comment:
Reason For Exam: epig pn/back pain, nausea, h/o AAA
10/05/24 18:48
Troponin I Urgent
10/05/24 19:39
HYDROmorphone [Dilaudid] 0.25 mg IV NOW STA
10/05/24 20:28
US Abdomen Complete/Upper Urgent
Comment:
Reason For Exam: eval for acute marcelle; nausa/back pain, upper abd p
10/05/24 21:14
HYDROmorphone [Dilaudid] 0.25 mg IV NOW STA
10/05/24 23:31
Admit/Transfer Patient As Directed
Co-Sign Provider:
Level of Care: Inpatient admission
Assign to:: Medical/Surgical
Physician / Group: donnell
Diagnosis: acute cholecystitis
Reason for Hospitalization: acute cholecystitis
Expected length of stay greater than two midnights?: Yes
ELOS- Estimated Length of Stay in days: 2
I certify the patient meets the requirements for IP care: Yes
PRN Pain Medication Management As Directed
May give lesser potent ordered pain med per pt: Yes
preference::
Protocol:: Medication orders for pain may be administered in a
manner that supports deferring to patient preference
when the pt is:
- Requesting an ordered lesser potent pain medication.
Least to most potent pain medications are defined
as: acetaminophen < NSAID < tramadol < opioids
(morphine, oxycodone, hydromorphone).
- Requesting a lesser dose of the same medication IF
ORDERED.
- Requesting a less intrusive route of administration
if both routes are prescribed by the provider (PO <
IV).
10/05/24 23:32
Code Status As Directed
Resuscitation Status: Full Code
10/06/24 01:03
HYDROmorphone [Dilaudid] 0.5 mg IV Q4HPRN PRN
10/06/24 01:42
0.9% Sodium Chloride 1000 ml [Nss] 1,000 ml IV 100 mls/hr
Melatonin 3 mg PO HSPRN PRN
Ondansetron Injectable [Zofran] 4 mg IV Q6HPRN PRN
Piperacillin/Tazo 3.375 Gram [Zosyn] 3.375 gram in 50 ml IV Q6H
Polyethylene Glycol Powder [Miralax] 17 grams PO DAILYPRN PRN
acetaminophen [Tylenol 8 Hour] 1,300 mg PO Q8HPRN PRN
10/06/24 01:42
SURGICAL CONSULT Routine
Consulting Provider: Sridhar Marion
Was physician already notified: Yes
Activity As Directed
Activity Level: As Tolerated
Pneumatic Compression Sleeves As Directed
Type: Knee high
Vital Signs As Directed
Frequency: Per unit guidelines
DX Deep Vein Thrombosis Video Routine
10/06/24 06:00
Complete Blood Count/With Diff IN AM
Comprehensive Metabolic Panel IN AM
10/06/24 08:00
Atorvastatin [Lipitor] 20 mg PO DAILY
Cholecalciferol (Vitamin D3) [VITAMIN D3 (cholecalciferol)] 25 mcg PO DAILY
Losartan [Cozaar] 100 mg PO DAILY
Multivitamin [Theragran] 1 tablet PO DAILY
Omeprazole Suspension [Prilosec Baby Oral Suspension] 20 mg PO DAILY
cranberry extract [Ellura] 200 mg PO DAILY
10/06/24 Dinner
NPO
Allow oral meds: Yes
Allow clear liquids: No
10/06/24 22:00
Diltiazem Extended Release [Cardizem Cd] 180 mg PO HS
Sertraline HCl [Zoloft] 50 mg PO HS
Abnormal Lab Results
10/05/24
16:51
Hgb 10.6 L g/dL
(12.0-16.0)
Hct 34.1 L %
(37.0-47.0)
MCV 73.3 L fL
(81.0-99.0)
MCH 22.8 L pg
(27.0-31.0)
MCHC 31.1 L g/dL
(33.0-37.0)
RDW 16.9 H %
(11.5-14.5)
Plt Count 530 H 10^3/uL
(130-400)
Absolute Monos (auto) 0.7 H 10^3/uL
(0.1-0.6)
Basophils % 2.3 H %
(0-2)
Chloride 97 L mmol/L
(98-107)
Glucose 122 H mg/dl
(70-99)
Alkaline Phosphatase 127 H U/L
(38-126)
Lipase 512 H U/L
(23-300)
10/05/24 16:51
10/05/24 16:51
Vital Signs
Initial and Last Documented VS:
Initial Vital Signs
Temp Pulse Resp BP Pulse Ox
36.7 C 110 16 186/110 98
10/05/24 16:39 10/05/24 16:39 10/05/24 16:39 10/05/24 16:39 10/05/24 16:39
Last Documented Vital Signs
Temp Pulse Resp BP Pulse Ox
36.6 C 108 19 182/99 95
10/06/24 01:57 10/06/24 01:57 10/06/24 01:57 10/06/24 01:57 10/06/24 01:57
MDM/Problems Addressed
Differential Diagnosis Includes:
AAA, cholelithiasis, cholecystitis, pancreatitis, ACS
MDM/Problems Addressed:
kim runkle 84 y/o F with h/o HTN, HLD, AAA, Afib no AC
upper abd pain and back pain x 3 days
tender upper abdomen, neg murphys, no fever; nausea but no vomiting
wbc 7.7, lfts normal, lipase 512
ct showed stable 2 cm AAA
suggested gb wall thickening and recommended us which confirms gb wall is thick and gb is distended, no stones, normal cbd
d/w sam who will see in consult; iv abx ordered; has had a few doses pain meds;
*Critical Care Note
Total Time (30-74mins, 75-104mins- exclusive of procedures): Not Applicable
ED Attending Note
-
Portions of this chart may have been created with voice recognition software.� Occasional wrong word or��sound alike� substitutions may have occurred due to the inherent limitations of voice recognition software.
Discharge Plan
Departure
Patient Disposition: Admit
Date of Disposition: 10/05/24
Time of Disposition: 22:30
Admit to: Med/Surg
Presentation/result/management discussed w/ accepting MD/DO: Hospitalist
Condition: Fair
Covid-19: Not Applicable
Discharge Problem:
Abdominal pain
Interventions
Interventions:
*Risk Screen - Suicide Last Done: 10/05/24 16:39
*General Assessment Last Done: 10/05/24 17:26
*Neglect/Abuse Screening Last Done: 10/05/24 16:39
ED- Fall Risk Assessment Last Done: 10/05/24 23:00
*ED COVID-19 Vaccine History Last Done: 10/06/24 01:52
*Nursing Disposition Last Done: 10/06/24 02:10
ED-Musculoskeletal Assessment Last Done: 10/05/24 17:26
Discharge Date and Time
Discharge Date/Time: 10/06/24 02:11
[2024-10-05] MEDS: ZOFRAN 4 MG IV (18:41)
[2024-10-05] MEDS: NSS 500 IV (18:41)
[2024-10-05] MEDS: PROTONIX IV 40 MG IV (18:41)
[2024-10-05 18:54] VITALS: BP 178/77
[2024-10-05 19:00] VITALS: BP 179/77
[2024-10-05 19:27] LABS: Troponin I < 0.012 ng/ml
[2024-10-05] MEDS: DILAUDID 0.25 MG IV ×2 (20:14→22:14)
[2024-10-05 20:17] VITALS: BP 181/77
--- NOTE | 2024-10-05 23:39 | HPS.HSE ---
Family Physician
-
Family Physician: CAYDEN Holley
Chief Complaint
-
abdominal pain
History of Present Illness
84-year-old female past medical history of paroxysmal atrial fibrillation status post Watchman, DVT with history of IVC filter, abdominal aortic aneurysm, hypertension, hyperlipidemia, depression, hiatal hernia, peptic ulcer, presenting with mid
back pain that started 3 to 4 days ago. Then she started upper abdominal pain in the right upper quadrant, bloating and belching and feeling very gassy. She had a bowel movement today but is mostly just a little stool and gas. She had vomiting
today. She denies fevers or chills, urinary symptoms, or blood in the stool. Denies chest pain shortness of breath.
Multiple family members with history of gallstones.
Denies smoking or alcohol use.
Medical History
Past Medical History
Past Medical History: Reports Other (paroxysmal atrial fibrillation status post Watchman, DVT with history of IVC filter, abdominal aortic aneurysm, hypertension, hyperlipidemia, depression, hiatal hernia, peptic ulcer,)
Past Surgical History: Reports Other ( Appendectomy, Bowel resection, Gynecological (Hysterectomy), Orthopedic (Total L knee replacement) and Other (Polyps removed and then developed staph infection. Needed colostomy and then reversal))
Social History
Tobacco: Non-smoker
Alcohol: None
Drug: None
Family History
Family History: Not pertinent
Allergies / Home Medications
Allergies reflects when Allergies were last updated in [facility].
Home Medications with original date entered in [facility]
Allergy/Medication List:
Allergies
Allergy/AdvReac Type Severity Reaction Status Date / Time
codeine Allergy Nausea / Verified 10/05/24 16:41
Vomiting
doxycycline Allergy Nausea Verified 10/05/24 16:41
escitalopram [From Lexapro] Allergy diarrhea Verified 10/05/24 16:41
morphine Allergy Nausea / Verified 10/05/24 16:41
Vomiting
Penicillins Allergy diarrhea Verified 10/05/24 16:41
apixaban [From Eliquis] AdvReac Unknown hemarthrosi Verified 10/05/24 16:41
s
Home Medications
atorvastatin 20 mg tablet 20 mg PO DAILY High cholesterol 02/14/19
melatonin 3 mg tablet 3 mg PO HSPRN PRN insomnia 02/14/19
diltiazem HCl 180 mg capsule,extended release 24 hr 180 mg PO HS Blood Pressure 08/21/22
acetaminophen 650 mg tablet,extended release (Tylenol 8 Hour) 1,300 mg PO Q8HPRN PRN mild pain 05/07/23
cholecalciferol (vitamin D3) 25 mcg (1,000 unit) capsule (Vitamin D3) 25 mcg PO DAILY Supplement 05/07/23
multivitamin 1 tab PO DAILY Supplement 05/07/23
losartan 100 mg tablet 100 mg PO DAILY Blood Pressure 01/22/24
sertraline 50 mg tablet 50 mg PO HS Depression 01/22/24
cranberry extract 200 mg capsule (Ellura) 200 mg PO DAILY 10/05/24
omeprazole 20 mg capsule,delayed release 20 mg PO DAILY 10/05/24
Review of Systems
-
History Source: Patient
A 12 point ROS was completed and negative except as noted: Yes
Constitutional: Reports No Symptoms
EENT: Reports No Symptoms
Respiratory: Reports No Symptoms
Cardiac: Reports No Symptoms
Abdomen/GI: Reports See HPI
: Reports No Symptoms
Musculoskeletal: Reports No Symptoms
Skin: Reports No Symptoms
Neurological: Reports No Symptoms
Endocrine: Reports No Symptoms
Hematologic/Lymphatic: Reports No Symptoms
Psych: Reports No Symptoms
Physical Exam
Vital Signs
Vital Signs
Temp Pulse Resp BP Pulse Ox
98.0 F 96 20 181/77 94
10/05/24 16:39 10/05/24 20:45 10/05/24 20:45 10/05/24 20:17 10/05/24 20:45
Physical Exam
General: Well Developed, Well Nourished and No Apparent Distress
HEENT: NormoCephalic, Moist mucous membranes and Atraumatic
Respiratory: Clear
Cardiac: S1/S2 and Regular Rhythm; No Murmur or Rub
GI: Soft, Non Distended, Normal Bowel Sounds and Tender (RUQ ); No Organomegaly
Rectal: Deferred by Provider
Musculoskeletal: No Clubbing, No Cyanosis and No Edema
Skin: No Rash
Neuro: Nonfocal/grossly intact
Laboratory Results
-
10/05/24 16:51
10/05/24 16:51
Laboratory Results
Total Bilirubin 0.6 mg/dl (0.2-1.3) 10/05/24 16:51
AST 27 U/L (14-36) 10/05/24 16:51
ALT 25 U/L (0-35) 10/05/24 16:51
Alkaline Phosphatase 127 U/L (38-126) H 10/05/24 16:51
Troponin I < 0.012 ng/ml 10/05/24 18:48
Lipase 512 U/L (23-300) H 10/05/24 16:51
Data Reviewed
-
Lab Data: Labs Reviewed by me
Old Records: Reviewed
Impression/Plan
-
IMPRESSION:
PLAN:
# Likely acute cholecystitis
-CT scan shows new mild gallbladder distention and mild pericholecystic fluid, large hiatal hernia which is stable
-Ultrasound shows no gallstones, distended gallbladder, gallbladder wall thickened, negative sonographic Garcia's
-Zosyn
-N.p.o.
-IV fluids
-Zofran, Dilaudid
-General Surgery consulted
Hiatal hernia
History of peptic ulcer
-Continue omeprazole
Paroxysmal atrial fibrillation status post Watchman
-Continue diltiazem
DVT with history of IVC filter
Abdominal aortic aneurysm
Essential hypertension
-Continue losartan
Hyperlipidemia
-Continue statin
Depression
-Continue sertraline
Full code
DVT prophylaxis�SCDs
N.p.o.
[2024-10-06] VITALS (14 sets, daily range): BP systolic 107–182; BP diastolic 72–103; BMI 22.3
[2024-10-06] MEDS: DILAUDID 0.5 MG IV ×3 (01:26→09:57)
--- NOTE | 2024-10-06 02:24 | PTCARENOTE ---
patient received from ER, ambulated with single point cane from stretcher to bed. Oriented x3, complaining of right sided abdominal pain. Apical irregulr, no edema noted. Lungs clear, pulse ox 95% on room air. Abdomen round tender in right
upper. #20 g in LAC flushed and patent. Call carpenter within reach, plan of care discussed.
[2024-10-06] MEDS: NSS 1000 IV ×3 (02:58→22:47)
[2024-10-06] MEDS: ZOSYN 50 IV ×4 (04:04→21:42)
[2024-10-06] MEDS: ZOFRAN 4 MG IV (05:17)
[2024-10-06 06:45] LABS: % Basophils 0.5 % (0-2); % Immature Granulocytes 0.5 % (0-0.5); % Lymphocytes 9.6 % (20.5-51.1); % Monocytes 6.1 % (1.7-9.3); % Neutrophils 83.3 % (42.2-75.2); Absolute Basophils 0.1 10^3/uL (0-0.2); Absolute Immature Granulocytes 0.1 10^3/uL (0-0.05); Absolute Lymphocytes 1.6 10^3/uL (1.2-3.4); Absolute Monocytes 1.1 10^3/uL (0.1-0.6); Absolute Neutrophils 14.2 10^3/uL (1.4-6.5); Hematocrit 34.4 % (37.0-47.0); Hemoglobin 10.6 g/dL (12.0-16.0); Mean Corp Hgb Conc. 30.8 g/dL (33.0-37.0); Mean Corpuscular Hgb 22.9 pg (27.0-31.0); Mean Corpuscular Volume 74.3 fL (81.0-99.0); Mean Platelet Volume 9.6 fL (7.4-10.4); Nucleated Red Blood Cells % 0 %; Platelet Count 528 10^3/uL (130-400); Red Blood Cell Count 4.63 10^6/uL (4.20-5.40); Red Cell Dist. Width 17.1 % (11.5-14.5); White Blood Cell Count 17.1 10^3/uL (4.8-10.8)
[2024-10-06 07:14] LABS: ALT (SGPT) 25 U/L (0-35); AST (SGOT) 27 U/L (14-36); Albumin 4.4 g/dl (3.5-5.0); Alkaline Phosphatase 135 U/L (38-126); Blood Urea Nitrogen 14 mg/dl (7-17); Calcium 9.3 mg/dl (8.4-10.2); Carbon Dioxide 27 mmol/L (22-30); Chloride 96 mmol/L (98-107); Estimated Creatinine Clearance 58 ml/min; Glucose 154 mg/dl (70-99); Potassium 4.4 mmol/L (3.5-5.1); Sodium 135 mmol/L (135-145); Total Bilirubin 1.1 mg/dl (0.2-1.3); Total Protein 7.7 g/dl (6.3-8.2); eGFR > 60.00
--- NOTE | 2024-10-06 08:36 | W.PN.HOSP.TC ---
Today's Communication/Plan
-
see bold
Assessment / Plan
Assessment / Plan
84-year-old female past medical history of paroxysmal atrial fibrillation status post Watchman, DVT with history of IVC filter, abdominal aortic aneurysm, hypertension, hyperlipidemia, depression, hiatal hernia, peptic ulcer, presenting with mid
back pain that started 3 to 4 days ago. Then she started upper abdominal pain in the right upper quadrant, bloating and belching and feeling very gassy. She had a bowel movement today but is mostly just a little stool and gas. She had vomiting
today. She denies fevers or chills, urinary symptoms, or blood in the stool. Denies chest pain shortness of breath.
#Acute cholecystitis
CT scan shows new mild gallbladder distention and mild pericholecystic fluid, large hiatal hernia which is stable
Ultrasound shows no gallstones, distended gallbladder, gallbladder wall thickened, negative sonographic Garcia's
Appreciate general surgery input, recommend IR consult for percutaneous cholecystostomy tube
Continue Zosyn, IV fluids, pain meds
Trend fever and white count
Hiatal hernia
History of peptic ulcer
-Continue PPI
Paroxysmal atrial fibrillation status post Watchman
-Continue diltiazem, give first dose now since patient has not gotten it yet
-Transfer to telemetry, add IV metoprolol as needed
DVT with history of IVC filter
Abdominal aortic aneurysm
Essential hypertension
-Continue losartan
Hyperlipidemia
-Continue statin
Depression
-Continue sertraline
DVT prophylaxis�subcu Lovenox
Full code
Total time spent to see the patient on the floor, examine the patient, review data and lab results, discuss treatment plan with patient, nursing staff around 51 minutes.
Physical Exam
General: No acute distress
HEENT: Normocephalic, Atraumatic, EOMI, MMM
Respiratory: Clear to Auscultation bilaterally
Cardiac: Normal S1/S2, tachycardic rate and Rhythm
GI: Soft, right upper quadrant tenderness noted, nondistended, normal Bowel Sounds
Extremities: No Clubbing, Cyanosis
Neuro: Nonfocal/Grossly Intact
Anticipated Discharge: > 48 hours
Subjective/Interval History
-
Date of Service: October 06, 2024
Patient complains of severe right upper quadrant abdominal pain. No fever.
Objective Data
-
Labs:
Laboratory Results
10/06/24
05:15
WBC 17.1 H
Hgb 10.6 L
Hct 34.4 L
Plt Count 528 H
Sodium 135
Potassium 4.4
Chloride 96 L
Carbon Dioxide 27
BUN 14
Creatinine 0.6
Glucose 154 H
Calcium 9.3
Total Bilirubin 1.1
AST 27
ALT 25
Alkaline Phosphatase 135 H
Vital Signs:
Vital Signs
Temp Pulse Resp BP Pulse Ox
97.9 F 108 19 182/99 95
10/06/24 01:57 10/06/24 01:57 10/06/24 01:57 10/06/24 01:57 10/06/24 02:44
I&O
10/05/24 10/06/24 10/07/24
06:59 06:59 06:59
Intake Total 450 / 450
Balance 450 / 450
[2024-10-06] MEDS: COZAAR 100 MG PO (08:56)
[2024-10-06] MEDS: VITAMIN D3 (cholecalciferol) 25 MCG PO (08:56)
[2024-10-06] MEDS: THERAGRAN 1 TABLET PO (08:56)
[2024-10-06] MEDS: LIPITOR 20 MG PO (08:56)
[2024-10-06] MEDS: PROTONIX 40 MG PO (08:56)
[2024-10-06] MEDS: COMPAZINE 5 MG IV (09:56)
[2024-10-06] MEDS: APRESOLINE 10 MG IV (09:58)
--- NOTE | 2024-10-06 10:10 | CON.GS ---
Addendum entered and electronically signed by Juan Abdi MD 10/06/24 10:55:
I saw and examined the patient independently.
The Mill [employer] Fitter's note was reviewed and I agree with the note, assessment and plan except where noted below.
Comment: This is an 84-year-old female with significant cardiac history, prior surgical history includes appendectomy, ALY, hemicolectomy with transverse colostomy and subsequent reversal who presents with 1 to 2-week history of right upper quadrant
pain, initially began in her right upper back and is now more focally anterior. CT scan demonstrated very distended gallbladder, subsequent ultrasound did not show stones and then Garcia sign was negative however her exam and story is fairly
consistent with a gallbladder disease. Given the duration of her symptoms, leukocytosis and tachycardia will plan for percutaneous cholecystostomy tube.
IR consult for PERC [place] tube
N.p.o. for now, okay for clears after or procedure.
IV fluids, IV antibiotics
Discussed plan with patient and daughter who is POA, agreeable to plan of care above. All questions answered.
General surgery will follow
Original Note:
Consultation
-
Date/Time Consultation Requested: 10/06/24141
Requesting Provider: Reginald
Medical History
-
Chief Complaint: n/v abdominal pain
History of Present Illness:
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
(1996) who presents with RUQ pain with nausea and vomiting. She is overall a poor historian due to her acute condition but notes that she began having mid right back pain about 1-2 weeks ago but now the pain has localized to her RUQ. She is markedly
tender to the RUQ on exam with involuntary guarding. She is nauseated and vomited during evaluation.
Past Medical History
Past Medical History: Diverticulitis, GERD (PUD), HTN, Hypercholesterolemia and Other (TSS, DVT with IVC filter)
Past Surgical History: Appendectomy, Bowel Resection (Colon resection for diverticular abscess/stricture with colostomy creation with subsequent colostomy reversal), Gynecological (ALY) and Orthopedic (Left TKR x2 (septic joint))
Social History
Tobacco: Non-Smoker
Alcohol: None
Living: Alone (lives next door to her daughter)
Family History
Family History: Reviewed & Not Pertinent
Allergies / Home Medications
Allergy/AdvReac Type Severity Reaction Status Date / Time
codeine Allergy Nausea / Verified 10/05/24 16:41
Vomiting
doxycycline Allergy Nausea Verified 10/05/24 16:41
escitalopram [From Lexapro] Allergy diarrhea Verified 10/05/24 16:41
morphine Allergy Nausea / Verified 10/05/24 16:41
Vomiting
Penicillins Allergy diarrhea Verified 10/05/24 16:41
apixaban [From Eliquis] AdvReac Unknown hemarthrosi Verified 10/05/24 16:41
s
�Medication �Instructions �Recorded �Confirmed �Type
atorvastatin 20 mg tablet 20 mg PO DAILY High cholesterol 02/14/19 10/05/24 History
melatonin 3 mg tablet 3 mg PO HSPRN PRN insomnia 02/14/19 10/05/24 History
diltiazem HCl 180 mg 180 mg PO HS Blood Pressure 08/21/22 10/05/24 History
capsule,extended release 24 hr
acetaminophen 650 mg 1,300 mg PO Q8HPRN PRN mild pain 05/07/23 10/05/24 History
tablet,extended release (Tylenol 8
Hour)
cholecalciferol (vitamin D3) 25 25 mcg PO DAILY Supplement 05/07/23 10/05/24 History
mcg (1,000 unit) capsule (Vitamin
D3)
multivitamin 1 tab PO DAILY Supplement 05/07/23 10/05/24 History
losartan 100 mg tablet 100 mg PO DAILY Blood Pressure 01/22/24 10/05/24 History
sertraline 50 mg tablet 50 mg PO HS Depression 01/22/24 10/05/24 History
cranberry extract 200 mg capsule 200 mg PO DAILY Supplement 10/05/24 10/05/24 History
(Ellura)
omeprazole 20 mg capsule,delayed 20 mg PO DAILY GERD 10/05/24 10/05/24 History
release
Review of Systems
-
Unable to obtain full review of systems at this time due to: Acuity
History Source: Patient
All other systems: Negative unless noted
A 10 point review of systems was completed, and was negative except as per HPI.
Physical Exam
Vital Signs
Temp Pulse Resp BP Pulse Ox
97.9 F 108 18 185/106 97
10/06/24 08:54 10/06/24 09:58 10/06/24 08:54 10/06/24 09:58 10/06/24 08:54
10/05/24 10/06/24 10/07/24
06:59 06:59 06:59
Actual Weight 58.831 kg
Body Mass Index (BMI) 22.3
Lab Results
10/06/24 05:15
10/06/24 05:15
WBC 17.1 10^3/uL (4.8-10.8) H 10/06/24 05:15
Hgb 10.6 g/dL (12.0-16.0) L 10/06/24 05:15
Hct 34.4 % (37.0-47.0) L 10/06/24 05:15
Plt Count 528 10^3/uL (130-400) H 10/06/24 05:15
Abs Immat Gran (auto) 0.1 10^3/uL (0-0.05) H 10/06/24 05:15
Neutrophils % 83.3 % (42.2-75.2) H 10/06/24 05:15
Physical Exam
General: Well Developed and Well Nourished
HEENT: Moist Mucous Membranes
Respiratory: Non Labored Respirations
GI: Soft and Tender (Markedly to the RUQ)
Skin: Warm and Dry
Neuro: Awake, Alert and AO x 3
Data Reviewed
-
CT Scan: Image Personally Visualized and interpreted, Report Reviewed by me, Discussed with Physician and Discussed with Patient
Ultrasound: Report Reviewed by me, Discussed with Physician and Discussed with Patient
Labs: Labs Reviewed by me, Discussed with Physician and Discussed with Patient
Old Records: Reviewed
Assessment / Plan
-
84 yo female history of PAF s/p Watchman procedure (off AC), DVT with IVC, HTN, PUD, appendectomy, ALY, prior diverticular abscess/stricture with temporary with hemicolectomy and transverse colostomy and subsequent reversal (1996) who developed mid
right back pain about 1-2 weeks ago which then localized to the RUQ. Labs notable for leukocytosis with WBC of 17.2. Alk phos mildly elevated, but otherwise LFT's WNL. She is tachycardic and hypertensive. Significant RUQ tenderness with +N/V on
exam.
US, CT and exam consistent with acute cholecystitis, ?acalculous. No cholelithiasis noted. Significant distention of the gallbladder noted on CT imaging.
--Discussed with IR, will plan for percutaneous cholecystostomy tube in management
--Continue IV ABX
--Trend labs
--Analgesics/antiemetics
--NPO for now, can trial on clears post procedure if nausea resolved
Medical management as per primary team
[2024-10-06 10:25] LABS: INR 1.01; PT 13.6 Sec (11.4-14.6)
--- NOTE | 2024-10-06 15:06 | W.PN.UPDATE ---
Update Note
Progress Note Update
- Post US/fluoro guided marcelle tube placement
- Pt tolerated well. No immediate complications
- Thick bilious fluid draining under high pressure. Flushing orders added.
--- NOTE | 2024-10-06 15:25 | PTCARENOTE ---
Pt arrived back to 2 south from IR s/p RUQ perc marcelle drain. Pt AAOx3 but drowsy, arousal to verbal. RUQ dressing C/D/I, marcelle drain draining brown/bloody drainage-per IR RN aware. Bed locked in lowest position, call carpenter within reach.
[2024-10-06] MEDS: TORADOL 10 MG IV ×2 (15:45→21:45)
--- NOTE | 2024-10-06 15:49 | CM ---
Addendum entered by Ale Harris 10/06/24 16:52:
[facility]
[phone]

Original Note:
assistant warehouse manager reviewed patient's chart and met with patient and patient lives alone in a 2 story home that is next to daughter's home, patient has a first floor set up, is independent with adl's and uses a cane with ambulation, patient has a walker
that she does not use. Patient with marcelle tube placement and may benefit from visiting nurses, options reviewed and patient has selected [facility].
PCP: Eric RODARTE
Pharmacy: [facility] in [place]
Plan; Home with [facility]
[2024-10-06] MEDS: ZOLOFT 50 MG PO (21:43)
[2024-10-06] MEDS: CARDIZEM CD 180 MG PO (21:43)
[2024-10-07] MEDS: ZOFRAN 4 MG IV (01:55)
[2024-10-07] MEDS: MELATONIN 3 MG PO (02:02)
[2024-10-07 02:05] VITALS: BP 157/93
[2024-10-07] MEDS: ZOSYN 50 IV ×4 (03:27→21:24)
[2024-10-07] MEDS: TORADOL 10 MG IV (04:20)
[2024-10-07 05:39] VITALS: BMI 22.8
[2024-10-07 07:25] VITALS: BP 147/76
[2024-10-07 07:41] LABS: ALT (SGPT) 25 U/L (0-35); AST (SGOT) 33 U/L (14-36); Albumin 3.5 g/dl (3.5-5.0); Alkaline Phosphatase 110 U/L (38-126); Blood Urea Nitrogen 17 mg/dl (7-17); Calcium 8.3 mg/dl (8.4-10.2); Carbon Dioxide 26 mmol/L (22-30); Chloride 99 mmol/L (98-107); Estimated Creatinine Clearance 58 ml/min; Glucose 125 mg/dl (70-99); Iron 29 ug/dl (37-170); Potassium 3.7 mmol/L (3.5-5.1); Sodium 136 mmol/L (135-145); Total Protein 6.4 g/dl (6.3-8.2); eGFR > 60.00
[2024-10-07 07:53] LABS: Percent Saturation 7 % (20-50); Total Iron Binding Capacity 373 ug/dl (265-497)
[2024-10-07] MEDS: COZAAR 100 MG PO (08:05)
[2024-10-07] MEDS: LIPITOR 20 MG PO (08:05)
[2024-10-07] MEDS: PROTONIX 40 MG PO (08:05)
[2024-10-07] MEDS: THERAGRAN 1 TABLET PO (08:05)
[2024-10-07] MEDS: VITAMIN D3 (cholecalciferol) 25 MCG PO (08:05)
[2024-10-07] MEDS: TYLENOL 1000 MG PO ×2 (08:08→21:39)
[2024-10-07 08:12] LABS: Ferritin 21.8 ng/ml (11.1-264.0)
[2024-10-07 08:14] LABS: Hematocrit 28.4 % (37.0-47.0); Hemoglobin 8.9 g/dL (12.0-16.0); Mean Corp Hgb Conc. 31.3 g/dL (33.0-37.0); Mean Corpuscular Hgb 22.8 pg (27.0-31.0); Mean Corpuscular Volume 72.8 fL (81.0-99.0); Mean Platelet Volume 10.1 fL (7.4-10.4); Platelet Count 415 10^3/uL (130-400)
[2024-10-07 08:43] LABS: Folate > 20.0 ng/ml (2.76-20); Vitamin B12 541 pg/ml (239-931)
--- NOTE | 2024-10-07 08:49 | W.PN.GS2 ---
Today's Communication / Plan
-
-- LFD
-- Pain control: Tylenol, Toradol (need to hold if Hb continues to drift)
-- Recheck Hb this afternoon given drift and IR drain outputs
-- Abx: Zosyn
Assessment / Plan
-
Patient is an 84 yo F p/w acute cholecystitis PPD#1 s/p IR cholecystostomy tube
AVSS
Leukocytosis down, slight drift/drop in hemoglobin possibly related to hemodilution or acute anemia following procedure
Recovering well overall. Plan to monitor in the hospital for dietary tolerance, tube maintenance, and any potential issues with anemia. With IV antibiotics.
-- LFD
-- Pain control: Tylenol, Toradol (need to hold if Hb continues to drift)
-- Recheck Hb this afternoon given drift and IR drain outputs
-- Abx: Zosyn
Subjective Data
-
Date of Service: October 07, 2024
Patient oriented, but history is somewhat limited by patient cognition. Reports some RUQ abdominal discomfort. No nausea or vomiting. Passing flatus, no BM. No fevers.
Objective Data
-
Intake and Output
10/06/24 10/07/24 10/08/24
06:59 06:59 06:59
Intake Total 450 / 450 1605 / 1605
Output Total 90 / 90
Balance 450 / 450 1515 / 1515
Intake:
Oral fluids 480 / 480
IV fluids (Total) 400 / 400 1025 / 1025
NSS 125 / 125
IV piggybacks 50 / 50 100 / 100
Amount instilled into Drain (
Total)
Biliary Placed in IR
Output:
Drain Output (Total) 90 /
Biliary Placed in IR
Other:
Number of approximated MODERATE 1 2
amounts of urine
Vital Signs
Temp Pulse Resp BP Pulse Ox
97.8 F 99 14 147/76 91
10/07/24 07:25 10/07/24 07:25 10/07/24 07:25 10/07/24 07:25 10/07/24 07:25
Lab Results
10/07/24 05:09
Calcium 8.3 mg/dl (8.4-10.2) L 10/07/24 05:09
Total Bilirubin 2.0 mg/dl (0.2-1.3) H 10/07/24 05:09
AST 33 U/L (14-36) 10/07/24 05:09
ALT 25 U/L (0-35) 10/07/24 05:09
Alkaline Phosphatase 110 U/L (38-126) 10/07/24 05:09
Total Protein 6.4 g/dl (6.3-8.2) 10/07/24 05:09
Albumin 3.5 g/dl (3.5-5.0) 10/07/24 05:09
Physical Exam
-
Gen: NAD
Abd: soft, tender in RUQ, ND, non-peritoneal, IR drain with thin bloody outputs
Patient has a pearson catheter: No
Patient has a central line: No
--- NOTE | 2024-10-07 09:59 | W.PN.HOSP.TC ---
Addendum entered and electronically signed by Juan Rubalcava MD 10/07/24 14:21:
Subjective: Patient denies right upper quadrant pain at rest, does report pain with movement and palpation. She is nauseous, no vomiting. No fever, no chest pain, no shortness of breath. She is passing gas, no bowel movement.
Original Note:
Today's Communication/Plan
-
see bold
Assessment / Plan
Assessment / Plan
84-year-old female past medical history of paroxysmal atrial fibrillation status post Watchman, DVT with history of IVC filter, abdominal aortic aneurysm, hypertension, hyperlipidemia, depression, hiatal hernia, peptic ulcer, presenting with mid
back pain that started 3 to 4 days ago. Then she started upper abdominal pain in the right upper quadrant, bloating and belching and feeling very gassy. She had a bowel movement today but is mostly just a little stool and gas. She had vomiting
today. She denies fevers or chills, urinary symptoms, or blood in the stool. Denies chest pain shortness of breath.
#Acute cholecystitis
CT scan shows new mild gallbladder distention and mild pericholecystic fluid, large hiatal hernia which is stable
Ultrasound shows no gallstones, distended gallbladder, gallbladder wall thickened, negative sonographic Garcia's
Appreciate general surgery input, s/p percutaneous cholecystostomy tube placement by IR on 10/06
Continue Zosyn, IV fluids, pain meds
Trend fever and white count
#Acute blood loss anemia
With a component of dilution
Hemoglobin 9.2, was 10.6 upon admission
Discontinue Toradol, trend hemoglobin
Hiatal hernia
History of peptic ulcer
-Continue PPI
Paroxysmal atrial fibrillation status post Watchman
-Continue diltiazem 180 mg HS, added IV metoprolol as needed
DVT with history of IVC filter
Abdominal aortic aneurysm
Essential hypertension
-Continue losartan
Hyperlipidemia
-Continue statin
Depression
-Continue sertraline
DVT prophylaxis�subcu Lovenox
Full code
Total time spent to see the patient on the floor, examine the patient, review data and lab results, discuss treatment plan with patient, nursing staff around 41 minutes.
Physical Exam
General: No acute distress
HEENT: Normocephalic, Atraumatic, EOMI, MMM
Respiratory: Clear to Auscultation bilaterally
Cardiac: Normal S1/S2, tachycardic rate and Rhythm
GI: Soft, right upper quadrant tenderness noted, nondistended, normal Bowel Sounds
Extremities: No Clubbing, Cyanosis
Neuro: Nonfocal/Grossly Intact
Anticipated Discharge: Within 24 hours
Subjective/Interval History
-
Date of Service: October 07, 2024
Objective Data
-
Labs:
Laboratory Results
10/07/24 10/07/24
05:09 12:00
WBC 15.0 H Pending
Hgb 8.9 L Pending
Hct 28.4 L Pending
Plt Count [address] H D Pending
Sodium 136
Potassium 3.7
Chloride 99
Carbon Dioxide 26
BUN 17
Creatinine 0.6
Glucose 125 H
Calcium 8.3 L
Total Bilirubin 2.0 H
AST 33
ALT 25
Alkaline Phosphatase 110
Vital Signs:
Vital Signs
Temp Pulse Resp BP Pulse Ox
97.8 F 99 14 147/76 91
10/07/24 07:25 10/07/24 07:25 10/07/24 07:25 10/07/24 07:25 10/07/24 07:25
I&O
10/06/24 10/07/24 10/08/24
06:59 06:59 06:59
Intake Total 450 / 450 1605 / 1605 5 / 5
Output Total 90 / 90
Balance 450 / 450 1515 / 1515 5 / 5
--- NOTE | 2024-10-07 10:48 | CM ---
Reviewed the chart notes. Patient's diet advanced to low fat. PPD#1 s/p IR cholecystostomy tube placement. CM continues to be available to patient/family and is monitoring medical plan for needs at discharge.
Plan: Discharge to home with [facility] ([phone])
[2024-10-07 10:51] VITALS: BP 136/73
[2024-10-07 12:19] LABS: Hemoglobin 9.2 g/dL (12.0-16.0); Mean Corp Hgb Conc. 30.7 g/dL (33.0-37.0); Mean Corpuscular Hgb 22.4 pg (27.0-31.0); Mean Platelet Volume 9.3 fL (7.4-10.4); Platelet Count 400 10^3/uL (130-400); Red Blood Cell Count 4.11 10^6/uL (4.20-5.40); Red Cell Dist. Width 17.2 % (11.5-14.5); White Blood Cell Count 15.5 10^3/uL (4.8-10.8)
--- NOTE | 2024-10-07 14:26 | PN.CDI ---
CDI
- -
CDI:
Physician Documentation Request
Admit Date: 10/05/24 23:44
Dear Doctor Do,
Clinical Indicators:
Patient admitted with acute cholecystitis;s/p percutaneous cholecystostomy tube placement 10/06.
HR trend on admission:
10/05/24
16:39 10/05/24
20:30 10/06/24
01:57
Pulse 110 95 108
10/06/24
08:54 10/06/24
09:58 10/06/24
12:57
Pulse 106 108 127
WBC trend:
10/05/24 10/06/24 10/07/24
16:51 05:15 05:09
WBC 7.7 17.1 H 15.0 H
Please clarify which of the following most accurately describes the status of the patient's infection:
Sepsis
- Systemic manifestations of infection, with 2 or more SIRS criteria which include:
- Fever >100.4 degrees F or hypothermia < 96.8 degrees F
- Leukocytosis - WBC > 12,000 or leukopenia - WBC < 4,000 or > 10% bands
- Tachycardia > 90 beats per minute
- Tachypnea - RR > 20 breaths per minute or PaCO2 , 32mmHg
Source: [employer]ck Manual 2013
Acute Cholecystitis Only, Without Systemic Illness
Other
Use of terms such as suspected, likely, concern for, or probable (associated with a specific diagnosis that is being evaluated, monitored, or treated as if it exists) are acceptable and can be coded in the inpatient setting, when documented at the
time of discharge.
Thank you,
Jodi Kang RN BSN
CDI Specialist
available via tiger text
Please use your independent medical judgment in providing your response.
[2024-10-07 15:13] VITALS: BP 149/71
[2024-10-07] MEDS: DILAUDID 2 MG PO (17:56)
[2024-10-07] MEDS: ZOLOFT 50 MG PO (21:24)
[2024-10-07] MEDS: CARDIZEM CD 180 MG PO (21:25)
[2024-10-07] MEDS: VITAMIN C 500 MG PO (21:25)
[2024-10-07] MEDS: FEOSOL 325 MG PO (21:25)
[2024-10-07] MEDS: FLUSH (NSS) 1 FLUSH IV (21:26)
[2024-10-07 23:40] VITALS: BP 133/70
[2024-10-08] VITALS (11 sets, daily range): BP systolic 141–173; BP diastolic 71–92; PULSE 93; O2SAT 94; BMI 23.2
[2024-10-08] MEDS: DILAUDID 2 MG PO ×2 (02:40→21:54)
[2024-10-08] MEDS: ZOSYN 50 IV ×4 (04:13→21:45)
[2024-10-08 05:48] LABS: Hematocrit 29.3 % (37.0-47.0); Hemoglobin 9.1 g/dL (12.0-16.0); Mean Corp Hgb Conc. 31.1 g/dL (33.0-37.0); Mean Corpuscular Hgb 22.9 pg (27.0-31.0); Mean Corpuscular Volume 73.6 fL (81.0-99.0); Mean Platelet Volume 9.9 fL (7.4-10.4); Platelet Count 387 10^3/uL (130-400); Red Blood Cell Count 3.98 10^6/uL (4.20-5.40); White Blood Cell Count 14.3 10^3/uL (4.8-10.8)
[2024-10-08] MEDS: LIPITOR 20 MG PO (08:14)
[2024-10-08] MEDS: PROTONIX 40 MG PO (08:15)
[2024-10-08] MEDS: VITAMIN D3 (cholecalciferol) 25 MCG PO (08:15)
[2024-10-08] MEDS: TYLENOL 1000 MG PO (08:15)
[2024-10-08] MEDS: COZAAR 100 MG PO (08:15)
[2024-10-08] MEDS: THERAGRAN 1 TABLET PO (08:15)
--- NOTE | 2024-10-08 08:17 | W.PN.HOSP.TC ---
Today's Communication/Plan
-
Hopeful for discharge tomorrow
Assessment / Plan
Assessment / Plan
84-year-old female past medical history of paroxysmal atrial fibrillation status post Watchman, DVT with history of IVC filter, abdominal aortic aneurysm, hypertension, hyperlipidemia, depression, hiatal hernia, peptic ulcer, presenting with mid
back pain that started 3 to 4 days ago. Then she started upper abdominal pain in the right upper quadrant, bloating and belching and feeling very gassy. She had a bowel movement today but is mostly just a little stool and gas. She had vomiting
today. She denies fevers or chills, urinary symptoms, or blood in the stool. Denies chest pain shortness of breath.
#Sepsis, POA, resolving
#Acute cholecystitis
CT scan shows new mild gallbladder distention and mild pericholecystic fluid, large hiatal hernia which is stable
Ultrasound shows no gallstones, distended gallbladder, gallbladder wall thickened, negative sonographic Garcia's
Appreciate general surgery input, s/p percutaneous cholecystostomy tube placement by IR on 10/06
F/u w/ Dr Abdi to discuss possible drain study and weigh the risk/benefit of pursuing surgery
Advised the tube is likely to need to stay in for minimum 6 weeks.
Continue Zosyn, IV fluids, pain meds
Possible discharge tomorrow
#Acute blood loss anemia superimposed on chronic iron deficiency anemia
With a component of dilution
Hemoglobin 9.1, was 9.2, was 10.6 upon admission
Discontinued Toradol, trend hemoglobin
Started on iron supplement with vitamin C at bedtime
Hiatal hernia
History of peptic ulcer
-Continue PPI
Paroxysmal atrial fibrillation status post Watchman
-Continue diltiazem 180 mg HS, added IV metoprolol as needed
DVT with history of IVC filter
Abdominal aortic aneurysm
Essential hypertension
-Continue losartan
Hyperlipidemia
-Continue statin
Depression
-Continue sertraline
DVT prophylaxis�subcu Lovenox
Full code
Total time spent to see the patient on the floor, examine the patient, review data and lab results, discuss treatment plan with patient, nursing staff around 41 minutes.
Discussed with general surgery
Updated daughter on phone 10/08
Physical Exam
General: No acute distress
HEENT: Normocephalic, Atraumatic, EOMI, MMM
Respiratory: Clear to Auscultation bilaterally
Cardiac: Normal S1/S2, tachycardic rate and Rhythm
GI: Soft, right upper quadrant tenderness noted, nondistended, normal Bowel Sounds
+ Percutaneous cholecystostomy drain in place
Extremities: No Clubbing, Cyanosis
Neuro: Nonfocal/Grossly Intact
Anticipated Discharge: Within 24 hours
Subjective/Interval History
-
Date of Service: October 07, 2024
Patient denies abdominal pain at rest, reports abdominal pain with palpation or movement. No nausea, no vomiting. She is passing gas and stool. No fever. No shortness of breath.
Objective Data
-
Labs:
Laboratory Results
10/07/24 10/07/24
05:09 11:58
WBC 15.0 H 15.5 H
Hgb 8.9 L 9.2 L
Hct 28.4 L 30.0 L
Plt Count 415 H D 400
Sodium 136
Potassium 3.7
Chloride 99
Carbon Dioxide 26
BUN 17
Creatinine 0.6
Glucose 125 H
Calcium 8.3 L
Total Bilirubin 2.0 H
AST 33
ALT 25
Alkaline Phosphatase 110
Vital Signs:
Vital Signs
Temp Pulse Resp BP Pulse Ox
97.7 F 108 16 136/73 91
10/07/24 10:51 10/07/24 10:51 10/07/24 10:51 10/07/24 10:51 10/07/24 10:51
I&O
10/06/24 10/07/24 10/08/24
06:59 06:59 06:59
Intake Total 450 / 450 1605 / 1605
Output Total 90 / 90
Balance 450 / 450 1515 / 1515
--- NOTE | 2024-10-08 13:38 | W.PN.GS2 ---
Today's Communication / Plan
-
IV abx
Assessment / Plan
-
Patient is an 84 yo F p/w acute cholecystitis PPD#2 s/p IR cholecystostomy tube
AVSS
Leukocytosis down, Hb stable
Recovering well overall. Plan to monitor in the hospital additional 24 hrs. With IV antibiotics.
-- LFD
-- Pain control: Tylenol, Toradol
-- Abx: Zosyn
--Discussed the likely next steps, involving office f/u with dr Abdi to discuss possible drain study and weigh the risk/benefit of pursuing surgery. Advised the tube is likely to need to stay in for minimum 6 weeks.
--OK for DC tomorrow pending improvement in WBC and no other new issues
Subjective Data
-
Date of Service: October 08, 2024
AFVSS, no complaints, OOBTC, hedy PO
Objective Data
-
Intake and Output
10/07/24 10/08/24 10/09/24
06:59 06:59 06:59
Intake Total 1605 / 1605 1405 / 1405
Output Total
Balance 1515 / 1515 1370 / 1370
Intake:
Oral fluids 480 / 480 1200 / 1200
IV fluids (Total) 1025 / 1025 100 / 100
NSS 125 / 125
IV piggybacks 100 / 100 100 / 100
Amount instilled into Drain (
Total)
Biliary Placed in IR
Output:
Drain Output (Total)
Biliary Placed in IR
Other:
Number of approximated SMALL 1
amounts of urine
Number of approximated MODERATE 2 1
amounts of urine
Number of approximated LARGE 1
amounts of urine
How many times incontinent 3
MODERATE amount urine
Vital Signs
Temp Pulse Resp BP Pulse Ox
98.1 F 86 16 154/78 92
10/08/24 11:14 10/08/24 11:14 10/08/24 11:14 10/08/24 11:14 10/08/24 11:14
Lab Results
10/08/24 05:16
10/07/24 05:09
Calcium 8.3 mg/dl (8.4-10.2) L 10/07/24 05:09
Total Bilirubin 2.0 mg/dl (0.2-1.3) H 10/07/24 05:09
AST 33 U/L (14-36) 10/07/24 05:09
ALT 25 U/L (0-35) 10/07/24 05:09
Alkaline Phosphatase 110 U/L (38-126) 10/07/24 05:09
Total Protein 6.4 g/dl (6.3-8.2) 10/07/24 05:09
Albumin 3.5 g/dl (3.5-5.0) 10/07/24 05:09
Physical Exam
-
Gen: NAD
Abd: soft, appropttp, drain with ss/cheney fluid
Patient has a pearson catheter: No
Patient has a central line: No
[2024-10-08] MEDS: APRESOLINE 10 MG IV (15:42)
[2024-10-08] MEDS: LOPRESSOR 5 MG IV (17:31)
--- NOTE | 2024-10-08 17:38 | PTCARENOTE ---
Patients heart rate has sustained >110 since 1700. Metoprolol 5 mg IV given as ordered. HR now in the 90's. Will continue to monitor.
[2024-10-08] MEDS: FLUSH (NSS) 1 FLUSH IV (21:45)
[2024-10-08] MEDS: FEOSOL 325 MG PO (21:46)
[2024-10-08] MEDS: CARDIZEM CD 180 MG PO (21:46)
[2024-10-08] MEDS: ZOLOFT 50 MG PO (21:46)
[2024-10-08] MEDS: VITAMIN C 500 MG PO (21:46)
[2024-10-09 03:43] VITALS: BP 133/71
[2024-10-09] MEDS: ZOSYN 50 IV ×4 (04:13→21:41)
[2024-10-09 05:55] LABS: Hemoglobin 8.9 g/dL (12.0-16.0); Mean Corpuscular Hgb 23.6 pg (27.0-31.0); Mean Corpuscular Volume 71.6 fL (81.0-99.0); Platelet Count 374 10^3/uL (130-400); Red Blood Cell Count 3.77 10^6/uL (4.20-5.40); Red Cell Dist. Width 16.9 % (11.5-14.5); White Blood Cell Count 9.9 10^3/uL (4.8-10.8)
[2024-10-09 06:00] VITALS: BMI 23.0
[2024-10-09 06:19] LABS: ALT (SGPT) 27 U/L (0-35); AST (SGOT) 27 U/L (14-36); Albumin 3.2 g/dl (3.5-5.0); Alkaline Phosphatase 102 U/L (38-126); Blood Urea Nitrogen 9 mg/dl (7-17); Calcium 8.2 mg/dl (8.4-10.2); Carbon Dioxide 27 mmol/L (22-30); Chloride 98 mmol/L (98-107); Estimated Creatinine Clearance 58 ml/min; Glucose 96 mg/dl (70-99); Magnesium 1.8 mg/dl (1.6-2.3); Potassium 2.7 mmol/L (3.5-5.1); Sodium 137 mmol/L (135-145); Total Bilirubin 1.4 mg/dl (0.2-1.3); Total Protein 6.1 g/dl (6.3-8.2); eGFR > 60.00
[2024-10-09] MEDS: KCL 40 MEQ PO ×2 (06:35→13:37)
[2024-10-09 07:40] VITALS: BP 152/69
[2024-10-09] MEDS: VITAMIN D3 (cholecalciferol) 25 MCG PO (08:24)
[2024-10-09] MEDS: COZAAR 100 MG PO (08:24)
[2024-10-09] MEDS: PROTONIX 40 MG PO (08:24)
[2024-10-09] MEDS: LIPITOR 20 MG PO (08:24)
[2024-10-09] MEDS: THERAGRAN 1 TABLET PO (08:24)
[2024-10-09] MEDS: DILAUDID 2 MG PO ×3 (08:28→21:50)
--- NOTE | 2024-10-09 09:37 | W.PN.HOSP.TC ---
Today's Communication/Plan
-
Replete potassium
For discharge tomorrow
Assessment / Plan
Assessment / Plan
84-year-old female past medical history of paroxysmal atrial fibrillation status post Watchman, DVT with history of IVC filter, abdominal aortic aneurysm, hypertension, hyperlipidemia, depression, hiatal hernia, peptic ulcer, presenting with mid
back pain that started 3 to 4 days ago. Then she started upper abdominal pain in the right upper quadrant, bloating and belching and feeling very gassy. She had a bowel movement today but is mostly just a little stool and gas. She had vomiting
today. She denies fevers or chills, urinary symptoms, or blood in the stool. Denies chest pain shortness of breath.
#Sepsis, POA, resolving
#Acute cholecystitis
CT scan shows new mild gallbladder distention and mild pericholecystic fluid, large hiatal hernia which is stable
Ultrasound shows no gallstones, distended gallbladder, gallbladder wall thickened, negative sonographic Garcia's
Appreciate general surgery input, s/p percutaneous cholecystostomy tube placement by IR on 10/06
F/u w/ Dr Abdi to discuss possible drain study and weigh the risk/benefit of pursuing surgery
Advised the tube is likely to need to stay in for minimum 6 weeks.
Continue Zosyn, pain meds
Possible discharge tomorrow on Augmentin
#Acute blood loss anemia superimposed on chronic iron deficiency anemia
With a component of dilution
Hemoglobin 9.1, was 9.2, was 10.6 upon admission
Discontinued Toradol, trend hemoglobin
Started on iron supplement with vitamin C at bedtime
#Severe hypokalemia
Replete, recheck a.m. labs and magnesium
Hiatal hernia
History of peptic ulcer
-Continue PPI
Paroxysmal atrial fibrillation status post Watchman
-Continue diltiazem 180 mg HS, added IV metoprolol as needed
DVT with history of IVC filter
Abdominal aortic aneurysm
Essential hypertension
-Continue losartan
Hyperlipidemia
-Continue statin
Depression
-Continue sertraline
DVT prophylaxis�subcu Lovenox
Full code
Total time spent to see the patient on the floor, examine the patient, review data and lab results, discuss treatment plan with patient, nursing staff around 48 minutes.
Discussed with general surgery
Updated daughter on phone 10/08
Updated daughter at bedside 10/09
Physical Exam
General: No acute distress
HEENT: Normocephalic, Atraumatic, EOMI, MMM
Respiratory: Clear to Auscultation bilaterally
Cardiac: Normal S1/S2, tachycardic rate and Rhythm
GI: Soft, right upper quadrant tenderness noted, nondistended, normal Bowel Sounds
+ Percutaneous cholecystostomy drain in place
Extremities: No Clubbing, Cyanosis
Neuro: Nonfocal/Grossly Intact
Anticipated Discharge: Within 24 hours
Subjective/Interval History
-
Date of Service: October 09, 2024
Patient reports abdominal discomfort is tolerable. No nausea, no vomiting. She is tolerating her diet. No fever, no shortness of breath.
Objective Data
-
Labs:
Laboratory Results
10/09/24 10/09/24
04:52 14:34
WBC 9.9
Hgb 8.9 L
Hct 27.0 L
Plt Count 374
Sodium 137 Pending
Potassium 2.7 L* D Pending
Chloride 98 Pending
Carbon Dioxide 27 Pending
BUN 9 Pending
Creatinine 0.6 Pending
Glucose 96 Pending
Calcium 8.2 L Pending
Total Bilirubin 1.4 H
AST 27
ALT 27
Alkaline Phosphatase 102
Vital Signs:
Vital Signs
Temp Pulse Resp BP Pulse Ox
98.2 F 90 12 152/69 94
10/09/24 07:40 10/09/24 07:40 10/09/24 07:40 10/09/24 07:40 10/09/24 07:40
I&O
10/08/24 10/09/24 10/10/24
06:59 06:59 06:59
Intake Total 1405 / 1405 345 / 345
Output Total 35 / 35
Balance 1370 / 1370 345 / 345
--- NOTE | 2024-10-09 09:42 | W.PN.GS2 ---
Today's Communication / Plan
-
`
Assessment / Plan
-
Assessment: 84 yo F p/w acute cholecystitis PPD#3 s/p IR cholecystostomy tube
AFVSS
WBC normal
Recovering well overall.
IR drain with bloody/hydropic bile
Plan:
-- LFD
-- Pain control: Tylenol, Toradol
-- Abx per primary service
okay for d/c with perc marcelle in place. follow up with dr oliva in next 2-4 weeks for outpatient surgical care
signing off, please call if can be of further assistance with care
Subjective Data
-
Date of Service: October 09, 2024
pt seen and examined
hedy diet
some residual pain/discomfort RUQ
eager for mt home to see her dog and cat
Objective Data
-
Intake and Output
10/08/24 10/09/24 10/10/24
06:59 06:59 06:59
Intake Total 1405 / 1405 345 / 345
Output Total
Balance 1370 / 1370 345 / 345
Intake:
Oral fluids 1200 / 1200 240 / 240
IV fluids (Total) 100 / 100
IV piggybacks 100 / 100 100 / 100
Amount instilled into Drain (
Total)
Biliary Placed in IR
Output:
Drain Output (Total)
Biliary Placed in IR
Other:
Number of approximated SMALL 1 1
amounts of urine
Number of approximated MODERATE 1 2
amounts of urine
Number of approximated LARGE 1
amounts of urine
How many times incontinent 3
MODERATE amount urine
Vital Signs
Temp Pulse Resp BP Pulse Ox
98.2 F 90 12 152/69 94
10/09/24 07:40 10/09/24 07:40 10/09/24 07:40 10/09/24 07:40 10/09/24 07:40
Lab Results
10/09/24 04:52
Calcium 8.2 mg/dl (8.4-10.2) L 10/09/24 04:52
Magnesium 1.8 mg/dl (1.6-2.3) 10/09/24 04:52
Total Bilirubin 1.4 mg/dl (0.2-1.3) H 10/09/24 04:52
AST 27 U/L (14-36) 10/09/24 04:52
ALT 27 U/L (0-35) 10/09/24 04:52
Alkaline Phosphatase 102 U/L (38-126) 10/09/24 04:52
Total Protein 6.1 g/dl (6.3-8.2) L 10/09/24 04:52
Albumin 3.2 g/dl (3.5-5.0) L 10/09/24 04:52
Physical Exam
-
NAD AAOx3
ABD: soft, ND, mild TTP RUQ
IR drain with bloody/hydroptic fluid
--- NOTE | 2024-10-09 10:07 | CM ---
Reviewed the chart notes and spoke with the patient at the bedside. CM continues to be available to patient/family and is monitoring medical plan for needs at discharge.
Plan: Discharge to home with [facility] ([phone])
[2024-10-09 11:05] VITALS: BP 142/75
[2024-10-09 15:12] LABS: Blood Urea Nitrogen 10 mg/dl (7-17); Calcium 8.8 mg/dl (8.4-10.2); Carbon Dioxide 28 mmol/L (22-30); Chloride 97 mmol/L (98-107); Estimated Creatinine Clearance 58 ml/min; Glucose 81 mg/dl (70-99); Potassium 3.3 mmol/L (3.5-5.1); Sodium 135 mmol/L (135-145); eGFR > 60.00
[2024-10-09 15:30] VITALS: BP 178/99
[2024-10-09] MEDS: APRESOLINE 10 MG IV ×2 (16:02→21:37)
[2024-10-09 19:15] VITALS: BP 163/94
[2024-10-09] MEDS: FEOSOL 325 MG PO (21:36)
[2024-10-09] MEDS: VITAMIN C 500 MG PO (21:36)
[2024-10-09] MEDS: ZOLOFT 50 MG PO (21:36)
[2024-10-09] MEDS: CARDIZEM CD 180 MG PO (21:36)
[2024-10-09] MEDS: KCL 10 MEQ PO (21:36)
[2024-10-09] MEDS: LOPRESSOR 5 MG IV (23:04)
[2024-10-09 23:15] VITALS: BP 132/87
[2024-10-10 03:05] VITALS: BP 156/92
[2024-10-10 06:00] VITALS: BMI 22.8
[2024-10-10 06:22] LABS: Hematocrit 28.6 % (37.0-47.0); Mean Corp Hgb Conc. 31.5 g/dL (33.0-37.0); Mean Corpuscular Hgb 22.6 pg (27.0-31.0); Mean Corpuscular Volume 71.9 fL (81.0-99.0); Mean Platelet Volume 9.7 fL (7.4-10.4); Platelet Count 413 10^3/uL (130-400); Red Blood Cell Count 3.98 10^6/uL (4.20-5.40); Red Cell Dist. Width 16.8 % (11.5-14.5); White Blood Cell Count 8.3 10^3/uL (4.8-10.8)
[2024-10-10 06:56] LABS: ALT (SGPT) 24 U/L (0-35); AST (SGOT) 22 U/L (14-36); Albumin 3.2 g/dl (3.5-5.0); Alkaline Phosphatase 95 U/L (38-126); Blood Urea Nitrogen 12 mg/dl (7-17); Calcium 8.4 mg/dl (8.4-10.2); Carbon Dioxide 26 mmol/L (22-30); Chloride 101 mmol/L (98-107); Estimated Creatinine Clearance 58 ml/min; Glucose 96 mg/dl (70-99); Magnesium 1.9 mg/dl (1.6-2.3); Potassium 3.4 mmol/L (3.5-5.1); Sodium 138 mmol/L (135-145); Total Bilirubin 1.1 mg/dl (0.2-1.3); Total Protein 6.1 g/dl (6.3-8.2); eGFR > 60.00
--- NOTE | 2024-10-10 08:17 | W.PN.HOSP.TC ---
Today's Communication/Plan
-
Stable for discharge today
Assessment / Plan
Assessment / Plan
84-year-old female past medical history of paroxysmal atrial fibrillation status post Watchman, DVT with history of IVC filter, abdominal aortic aneurysm, hypertension, hyperlipidemia, depression, hiatal hernia, peptic ulcer, presenting with mid
back pain that started 3 to 4 days ago. Then she started upper abdominal pain in the right upper quadrant, bloating and belching and feeling very gassy. She had a bowel movement today but is mostly just a little stool and gas. She had vomiting
today. She denies fevers or chills, urinary symptoms, or blood in the stool. Denies chest pain shortness of breath.
#Sepsis, POA, resolving
#Acute cholecystitis
CT scan shows new mild gallbladder distention and mild pericholecystic fluid, large hiatal hernia which is stable
Ultrasound shows no gallstones, distended gallbladder, gallbladder wall thickened, negative sonographic Garcia's
Appreciate general surgery input, s/p percutaneous cholecystostomy tube placement by IR on 10/06
F/u w/ Dr Abdi to discuss possible drain study and weigh the risk/benefit of pursuing surgery
Advised the tube is likely to need to stay in for minimum 6 weeks.
Currently on IV Zosyn, will discharge on Augmentin to complete a 10-day course
Follow-up with PCP in 1 week, and general surgery in 2-3 weeks
#Acute blood loss anemia superimposed on chronic iron deficiency anemia
With a component of dilution
Hemoglobin 9.0, was 9.2, was 10.6 upon admission
Discontinued Toradol, trend hemoglobin
Started on iron supplement with vitamin C at bedtime -continue upon discharge
#Severe hypokalemia
Potassium 3.4 today, she received another 40 mEq of KCl prior to discharge
Hiatal hernia
History of peptic ulcer
-Continue PPI
Paroxysmal atrial fibrillation status post Watchman
-Continue diltiazem 180 mg HS, added IV metoprolol as needed
DVT with history of IVC filter
Abdominal aortic aneurysm
Essential hypertension
-Continue losartan
Hyperlipidemia
-Continue statin
Depression
-Continue sertraline
DVT prophylaxis�subcu Lovenox
Full code
Updated daughter on phone 10/08
Updated daughter at bedside 10/09
Physical Exam
General: No acute distress
HEENT: Normocephalic, Atraumatic, EOMI, MMM
Respiratory: Clear to Auscultation bilaterally
Cardiac: Normal S1/S2, tachycardic rate and Rhythm
GI: Soft, right upper quadrant tenderness noted, nondistended, normal Bowel Sounds
+ Percutaneous cholecystostomy drain in place
Extremities: No Clubbing, Cyanosis
Neuro: Nonfocal/Grossly Intact
Anticipated Discharge: Today
Subjective/Interval History
-
Date of Service: October 10, 2024
Patient reports her abdominal pain is tolerable. No nausea, no vomiting. No chest pain, no shortness of breath. No fever.
Objective Data
-
Labs:
Laboratory Results
10/10/24
05:04
WBC 8.3
Hgb 9.0 L
Hct 28.6 L
Plt Count 413 H
Sodium 138
Potassium 3.4 L
Chloride 101
Carbon Dioxide 26
BUN 12
Creatinine 0.6
Glucose 96
Calcium 8.4
Total Bilirubin 1.1
AST 22
ALT 24
Alkaline Phosphatase 95
Vital Signs:
Vital Signs
Temp Pulse Resp BP Pulse Ox
97.8 F 99 16 156/92 93
10/10/24 03:05 10/10/24 03:05 10/10/24 03:05 10/10/24 03:05 10/10/24 03:05
I&O
10/09/24 10/10/24 10/11/24
06:59 06:59 06:59
Intake Total 345 / 345 965 / 965
Balance 345 / 345 965 / 965
[2024-10-10 08:18] VITALS: BP 163/82
[2024-10-10] MEDS: VITAMIN D3 (cholecalciferol) 25 MCG PO (08:51)
[2024-10-10] MEDS: THERAGRAN 1 TABLET PO (08:51)
[2024-10-10] MEDS: PROTONIX 40 MG PO (08:51)
[2024-10-10] MEDS: LIPITOR 20 MG PO (08:52)
[2024-10-10] MEDS: COZAAR 100 MG PO (08:52)
[2024-10-10] MEDS: AUGMENTIN 875 MG/125 MG 1 TABLET PO (08:54)
[2024-10-10] MEDS: KCL 40 MEQ PO (08:54)
--- NOTE | 2024-10-10 09:56 | CM ---
Reviewed the chart notes and spoke with the patient at the bedside. IMM reviewed. The patient is for discharge to home today. The patient's daughter will provide transportation. CM continues to be available to patient/family and is monitoring
medical plan for needs at discharge.
Plan: Discharge to home with [facility] ([phone])
[2024-10-10 11:11] VITALS: BP 145/78
== END 2024-10-10 12:15 | disposition home health service (06) | DRG 872 ==
LOC: 2 SOUTH 23:44
PROVIDERS: Nurse Practitioner Family; Physician Assistant; Radiology Diagnostic Radiology; Registered Nurse; Surgery; ADMITTING PHYSICIAN Hospitalist; ATTENDING PHYSICIAN Family Medicine; EMERGENCY PHYSICIAN Emergency Medicine; FAMILY PHYSICIAN Physician Assistant; OTHER PHYSICIAN Surgery
PROC: 0F9430Z Drainage of Gallbladder with Drainage Device, Percutaneous Approach (ICD-10-PCS; 2024-10-06)
DX: A41.9 Sepsis, unspecified organism (principal); K81.0 Acute cholecystitis; D62 Acute posthemorrhagic anemia; F32.A Depression, unspecified; I11.0 Hypertensive heart disease with heart failure; I25.10 Atherosclerotic heart disease of native coronary artery without angina pectoris; I48.0 Paroxysmal atrial fibrillation; I50.9 Heart failure, unspecified; I71.40 Abdominal aortic aneurysm, without rupture, unspecified; K82.8 Other specified diseases of gallbladder; E87.6 Hypokalemia
CPT/HCPCS: 47490; 74177; 76700; 80048; 80053; 82607; 82728; 82746; 83540; 83550; 83690; 83735; 84484; 85025; 85027; 85610; 87015; 87070; 87205; 93005; 96374; 96375; 97162; 97166; 99152; 99153; 99285; C1729; C1769; Q9967

== ENCOUNTER → 2024-10-27 09:16 | Outpatient (REF) | payer MEDICARE, SELFPAY ==
[2024-10-27 09:35] VITALS: BP 159/73; BP_SYST 83
[2024-10-27 10:10] VITALS: BP 153/71; BP_SYST 81
== END ==
LOC: RADI 09:16
PROVIDERS: ATTENDING PHYSICIAN Surgery; FAMILY PHYSICIAN Physician Assistant
DX: Z43.4 Encounter for attention to other artificial openings of digestive tract (principal); K81.0 Acute cholecystitis
CPT/HCPCS: 47531

== ENCOUNTER 2025-07-25 05:33 | Inpatient (IN) | payer MEDICARE, OTHER, SELFPAY ==
[2025-07-24 23:04] VITALS: BP 189/72
[2025-07-24 23:29] LABS: Hematocrit 38.6 % (37.0-47.0); Hemoglobin 12.6 g/dL (12.0-16.0); Mean Corp Hgb Conc. 32.6 g/dL (33.0-37.0); Mean Corpuscular Volume 88.1 fL (81.0-99.0); Platelet Count 284 10^3/uL (130-400); Red Cell Dist. Width 13.9 % (11.5-14.5)
[2025-07-24 23:40] LABS: ALT (SGPT) 24 U/L (0-35); AST (SGOT) 28 U/L (14-36); Albumin 4.8 g/dl (3.5-5.0); Alkaline Phosphatase 97 U/L (38-126); Blood Urea Nitrogen 19 mg/dl (7-17); Calcium 9.3 mg/dl (8.4-10.2); Carbon Dioxide 29 mmol/L (22-30); Chloride 102 mmol/L (98-107); Estimated Creatinine Clearance 49 ml/min; Glucose 139 mg/dl (70-99); Potassium 3.7 mmol/L (3.5-5.1); Sodium 140 mmol/L (135-145); Total Protein 8.0 g/dl (6.3-8.2); eGFR > 60.00
[2025-07-25] VITALS (15 sets, daily range): BP systolic 140–174; BP diastolic 63–88; BMI 22.8
[2025-07-25 00:13] LABS: Nucleated Red Blood Cells % 0 %
--- NOTE | 2025-07-25 01:15 | ED.GENMED ---
History of Present Illness
<NENA Perez - Last Filed: 07/25/25 03:06>
General
Chief Complaint: Musculo-Skeletal Complaint
Source: patient and family
Exam Limitations: none
Time Seen by Provider: 07/25/25 00:32
Nursing documentation reviewed up to this point in time: agreed with
History of Present Illness
History of Present Illness:
patient is an 85year-old female with past medical history of A-fib a flutter cardiomyopathy CHF CAD DVT hypertension hyperlipidemia SVT colitis presents to the ER for evaluation. She reports at 9 PM on her front porch. She reports she landed on
her butt. She denies hitting her head. She crawled into the living room to call her daughter. Daughter called an ambulance. Patient complains of pain to the right hip. She denies any headache or neck pain no other injuries. Patient with no
other injury.
Past History
<NENA Perez - Last Filed: 07/25/25 03:06>
Past History
ED Past Medical History: Arrthythmia (Atrial fib), CAD, CHF, HTN, Hypercholesterolemia, Hypothyroidism and Other (PNA, Microscopic Colitis, Vertigo, DDD)
ED Past Surgical History: Appendectomy, Bowel resection, Gynecological (Hysterectomy), Orthopedic (Total L knee replacement) and Other (Polyps removed and then developed staph infection. Needed colostomy and then reversal)
Social History
Tobacco: Non-smoker
Alcohol: None
Personal:
Living: with family (Grandson)
Employment: Retired
Family History
Family History: Negative Diabetes, Hypertension or CAD
Phy Exam
<NENA Perez - Last Filed: 07/25/25 03:06>
General Physical Exam
General Presentation: no apparent distress
General age: appears stated age
General Skin: warm and dry
General Habitus: elderly
General Hydration: dry mucous membranes
Cardiovascular Exam
Cardiovascular Exam: regular rate/rhythm, no murmur and normal peripheral pulses
Pulmonary Exam
Pulmonary Exam: lungs clear and no respiratory distress
Neurological Exam
Neurological Exam: alert and oriented x3
Musculoskeletal Exam
Musculoskeletal Exam: other (Strong distal pulses right leg is shortened externally rotated pain with range of motion)
Skin Exam
Skin Exam: normal color and warm/dry
Psychiatric Exam
Psychiatric Exam: normal mood/affect
Course
<NENA Perez - Last Filed: 07/25/25 03:06>
Orders/Labs/Results
Orders:
Orders
07/24/25 23:22
Complete Blood Count/With Diff Urgent
Comprehensive Metabolic Panel Urgent
07/24/25 23:56
CR Hip - RT w/wo Pel 2-3 Vw* Urgent
Comment:
Reason For Exam: Rotation and shortening of R leg
Include a pelvis x-ray?: Yes
07/25/25 01:21
0.9% Sodium Chloride 500 ml [Nss] 500 ml IV BOLUS
Acetaminophen 1000MG/100Ml [Ofirmev] 1,000 mg in 100 ml IV ONCE
Acetaminophen IV Indication:: ED Narcotic Naive Pt-ONCE
07/25/25 01:47
Electrocardiogram (*1) Stat
Reason for Study: Other
Other Reason for Exam: chest pain
Cardiac Monitoring- Treatment ONCE
EKG- Treatment ONCE
07/25/25 02:00
CXR Port [CR Chest Portable - 1 View] Urgent
Comment:
Reason For Exam: Hypoxemia
Reason Study Needs to be Portable: Unable to Transport
07/25/25 02:16
COVID-19 Antigen Urgent
Source: Nasal Swab
Influenza A+B Rapid Molecular Urgent
CHRISTOPHER Source: Nasal Swab
Specimen Description:
07/25/25 02:37
Urinalysis Reflex To Culture Urgent
07/25/25 02:58
CT Chest PE Study Urgent
Comment:
Reason For Exam: Hypoxemia, Fall
Abnormal Lab Results
07/24/25
23:22
WBC 24.1 H 10^3/uL
(4.8-10.8)
MCHC 32.6 L g/dL
(33.0-37.0)
Abs Immat Gran (auto) 0.2 H 10^3/uL
(0-0.05)
Absolute Neuts (auto) 19.5 H 10^3/uL
(1.4-6.5)
Absolute Monos (auto) 1.5 H 10^3/uL
(0.1-0.6)
Immature Gran % 0.7 H %
(0-0.5)
Neutrophils % 81.1 H %
(42.2-75.2)
Lymphocytes % 11.4 L %
(20.5-51.1)
BUN 19 H mg/dl
(7-17)
Glucose 139 H mg/dl
(70-99)
07/24/25 23:22
07/24/25 23:22
Vital Signs
Initial and Last Documented VS:
Initial Vital Signs
Temp Pulse Resp BP Pulse Ox
98.2 F 76 20 189/72 95
07/24/25 23:04 07/24/25 23:04 07/24/25 23:04 07/24/25 23:04 07/24/25 23:04
Last Documented Vital Signs
Temp Pulse Resp BP Pulse Ox
98.2 F 95 19 148/66 97
07/24/25 23:04 07/25/25 02:45 07/25/25 02:45 07/25/25 02:00 07/25/25 02:45
Laborer Tanbark consulted with Physician
Laborer Tanbark consulted with physician?: Yes
Name of Physician Consulted: you
<Saul Lancaster, DO - Last Filed: 07/25/25 01:42>
Orders/Labs/Results
Orders:
Orders
07/24/25 23:22
Complete Blood Count/With Diff Urgent
Comprehensive Metabolic Panel Urgent
07/24/25 23:56
CR Hip - RT w/wo Pel 2-3 Vw* Urgent
Comment:
Reason For Exam: Rotation and shortening of R leg
Include a pelvis x-ray?: Yes
07/25/25 01:21
0.9% Sodium Chloride 500 ml [Nss] 500 ml IV BOLUS
Acetaminophen 1000MG/100Ml [Ofirmev] 1,000 mg in 100 ml IV ONCE
Acetaminophen IV Indication:: ED Narcotic Naive Pt-ONCE
07/25/25 01:47
Electrocardiogram (*1) Stat
Reason for Study: Other
Other Reason for Exam: chest pain
Cardiac Monitoring- Treatment ONCE
EKG- Treatment ONCE
07/25/25 02:00
CXR Port [CR Chest Portable - 1 View] Urgent
Comment:
Reason For Exam: Hypoxemia
Reason Study Needs to be Portable: Unable to Transport
07/25/25 02:16
COVID-19 Antigen Urgent
Source: Nasal Swab
Influenza A+B Rapid Molecular Urgent
CHRISTOPHER Source: Nasal Swab
Specimen Description:
07/25/25 02:37
Urinalysis Reflex To Culture Urgent
07/25/25 02:58
CT Chest PE Study Urgent
Comment:
Reason For Exam: Hypoxemia, Fall
Abnormal Lab Results
07/24/25
23:22
WBC 24.1 H 10^3/uL
(4.8-10.8)
MCHC 32.6 L g/dL
(33.0-37.0)
Abs Immat Gran (auto) 0.2 H 10^3/uL
(0-0.05)
Absolute Neuts (auto) 19.5 H 10^3/uL
(1.4-6.5)
Absolute Monos (auto) 1.5 H 10^3/uL
(0.1-0.6)
Immature Gran % 0.7 H %
(0-0.5)
Neutrophils % 81.1 H %
(42.2-75.2)
Lymphocytes % 11.4 L %
(20.5-51.1)
BUN 19 H mg/dl
(7-17)
Glucose 139 H mg/dl
(70-99)
07/24/25 23:22
07/24/25 23:22
Vital Signs
Initial and Last Documented VS:
Initial Vital Signs
Temp Pulse Resp BP Pulse Ox
98.2 F 76 20 189/72 95
07/24/25 23:04 07/24/25 23:04 07/24/25 23:04 07/24/25 23:04 07/24/25 23:04
Last Documented Vital Signs
Temp Pulse Resp BP Pulse Ox
98.2 F 95 19 148/66 97
07/24/25 23:04 07/25/25 02:45 07/25/25 02:45 07/25/25 02:00 07/25/25 02:45
<NENA Perez - Last Filed: 07/25/25 03:06>
MDM/Problems Addressed
Differential Diagnosis Includes:
Not limited to hip contusion versus fracture
MDM/Problems Addressed:
Patient is an 85-year-old female not on blood thinners status post fall with right hip fracture. Patient strong pulses no head injury. Patient is afebrile white count is elevated 24,000 which is new from previous no fevers . wbc may be partially
a reactive finding however will also need additional testing with since significant elevation
<NENA Perez - Last Filed: 07/25/25 03:06>
*Radiology
Radiology exam reviewed: preliminary read by ED provider (+ right femoral neck fx )
*Pulse Oximetry
SaO2: 97
Oxygen Mode of Delivery: Room air
Patient hypoxic: no
*EKG
Interpreted by ED Provider?: Yes
Interpretation: normal
Heart Rate: 94
Rate: normal
Rhythm: sinus
Ischemia: non-specific ST changes
*Critical Care Note
Total Time (30-74mins, 75-104mins- exclusive of procedures): Not Applicable
<NENA Perez - Last Filed: 07/25/25 03:06>
Patient Management
Discussion with other providers: Forging Machine Hand (ortho DR Mares made aware )
ED Attending Note
<NENA Perez - Last Filed: 07/25/25 03:06>
-
Portions of this chart may have been created with voice recognition software.� Occasional wrong word or��sound alike� substitutions may have occurred due to the inherent limitations of voice recognition software.
<Saul Lancaster DO - Last Filed: 07/25/25 01:42>
ED Attending Note
Patient seen and examined by attending physician: Yes
I performed the substantive portion of visit, reviewed & personally made and approve the management plan that is documented in note by myself or JAMEE.: Yes
ED Attending Note:
I have seen and evaluated the patient with a [id number] encounter. I have spoken to the advance practicer provider and involved in the medical history, the physical exam, medical decision making.
Evaluation and management service: agree unless noted differently below.
Results interpretation: agree unless noted differently below.
Focused HPI: 85-year-old female presenting with right hip pain after trip and fall. She denies head trauma
Physical exam: Right leg is shortened and externally rotated but patient otherwise awake and alert
Medical Decision Making: X-ray concerning for hip fracture. Will discuss case with orthopedics and admit
Discharge Plan
Departure
Patient Disposition: Admit
Date of Disposition: 07/25/25
Time of Disposition: 01:43
Admit to: Med/Surg
Admit to doctor: sanjuana
Presentation/result/management discussed w/ accepting MD/DO: Hospitalist
Patient with high blood pressure during this ER visit?: Yes
Condition: Fair
Covid-19: Not Applicable
Discharge Problem:
Closed hip fracture, Leukocytosis
Prescriptions:
No Action
atorvastatin 20 MG tablet
20 mg PO DAILY
melatonin 3 MG tablet
3 mg PO HSPRN PRN (Reason: insomnia)
diltiazem HCl 180 MG capsule,extended release 24hr
180 mg PO HS
cholecalciferol (vitamin D3) [Vitamin D3] 25 mcg (1,000 unit) Capsule
25 mcg PO DAILY
multivitamin Tablet
1 tab PO DAILY
acetaminophen [Tylenol 8 Hour] 650 mg Tablet Extended Release
1,300 mg PO Q8HPRN PRN (Reason: mild pain)
losartan 100 mg Tablet
100 mg PO DAILY
sertraline 50 mg Tablet
50 mg PO HS
omeprazole 20 mg Capsule,Delayed Release(Dr/Ec)
20 mg PO DAILY
cranberry extract [Ellura] 200 mg Capsule
200 mg PO DAILY
hydromorphone 2 mg Tablet
2 mg PO Q4HPRN PRN (Reason: moderate pain) Qty: 20 0RF
ascorbic acid (vitamin C) [Vitamin C] 500 mg Tablet
500 mg PO HS Qty: 30 0RF
ferrous sulfate [FeroSul] 325 mg (65 mg iron) Tablet
325 mg PO HS Qty: 30 0RF
amoxicillin-pot clavulanate 875-125 mg Tablet
1 tab PO Q12 5 Days Qty: 10 0RF
Referrals:
Ted Morales MD [Family Provider, Family Practice]
Interventions
Interventions:
*Risk Screen - Suicide Last Done: 07/24/25 23:04
*General Assessment Last Done: 07/24/25 23:04
*Neglect/Abuse Screening Last Done: 07/24/25 23:04
*ED- Fall Risk Assessment Last Done: 07/24/25 23:04
*ED COVID-19 Vaccine History Last Done: 07/24/25 23:04
*ED Influenza Vaccine History Last Done: 07/24/25 23:04
ED-Musculoskeletal Assessment Last Done: 07/24/25 23:39
Discharge Date and Time
Print Language: TAMAZIGHT
[2025-07-25] MEDS: OFIRMEV 100 IV (01:35)
[2025-07-25] MEDS: NSS 500 IV (01:35)
[2025-07-25 03:05] LABS: COVID-19 Antigen Negative (Negative)
--- NOTE | 2025-07-25 05:10 | HPS.HSE ---
Family Physician
-
Family Physician: Ted Morales
Chief Complaint
-
Fall / R Hip Pain
History of Present Illness
Patient is an 85y F with PMH significant for ASCVD, A-Fib and hypertension who presents to ED complaining of R hip pain s/p fall at home. Patient states that she was on the porch this evening to let out her dog (a cankiana tarango) and she fell. She
does not know why she fell. She denies any prodrome of lightheadedness or dizziness. No chest pain or dyspnea. She recalls losing her balance and trying not to fall. She did not strike her head or lose consciousness. She does not belive that
she tripped over anything, etc.
Patient was unable to get up unassisted. She was able to crawl back into the house and reach her phone with some difficulty. She called her daughter for assistance.
911 was called and patient was brought to the ED for further evaluation.
Patient denies any recent illness, complaints, etc prior to fall.
Medical History
Past Medical History
Past Medical History: Reports Other
Additional Past Medical History:
Hypothyroidism
Thoracic aortic aneurysm
Hypertension
Colonic polyp
Hyperlipidemia
Paroxysmal A-fib
Coronary artery disease
SVT
GERD
Hiatal hernia depression
Past Surgical History: Reports Other
Additional Past Surgical History:
Percutaneous Adriane Tube (since removed)
Left cataract surgery
[place] with BSO
Bilateral knee replacement
Hemicolectomy
Appendectomy
Tubal ligation
Social History
Tobacco: Non-smoker
Alcohol: None
Drug: None
Personal: Single
Living: Alone
Family History
Family History: Not pertinent
Allergies / Home Medications
Allergies reflects when Allergies were last updated in [facility].
Home Medications with original date entered in [facility]
Allergy/Medication List:
Allergies
Allergy/AdvReac Type Severity Reaction Status Date / Time
codeine Allergy Nausea / Verified 10/27/24 09:41
Vomiting
doxycycline Allergy Nausea Verified 10/27/24 09:41
escitalopram (From Lexapro) Allergy diarrhea Verified 10/27/24 09:41
morphine Allergy Nausea / Verified 10/27/24 09:41
Vomiting
Penicillins Allergy diarrhea Verified 10/27/24 09:41
apixaban (From Eliquis) AdvReac Unknown hemarthrosi Verified 10/27/24 09:41
s
Home Medications
atorvastatin 20 mg tablet 20 mg PO DAILY High cholesterol 02/14/19
melatonin 3 mg tablet 3 mg PO HSPRN PRN insomnia 02/14/19
diltiazem HCl 180 mg capsule,extended release 24 hr 180 mg PO HS Blood Pressure 08/21/22
acetaminophen 650 mg tablet,extended release (Tylenol 8 Hour) 1,300 mg PO Q8HPRN PRN mild pain 05/07/23
cholecalciferol (vitamin D3) 25 mcg (1,000 unit) capsule (Vitamin D3) 25 mcg PO DAILY Supplement 05/07/23
multivitamin 1 tab PO DAILY Supplement 05/07/23
losartan 100 mg tablet 100 mg PO DAILY Blood Pressure 01/22/24
sertraline 50 mg tablet 50 mg PO HS Depression 01/22/24
cranberry extract 200 mg capsule (Ellura) 200 mg PO DAILY Supplement 10/05/24
omeprazole 20 mg capsule,delayed release 20 mg PO DAILY GERD 10/05/24
ascorbic acid (vitamin C) 500 mg tablet (Vitamin C) 500 mg PO HS #30 tabs 10/10/24
ferrous sulfate 325 mg (65 mg iron) tablet (FeroSul) 325 mg PO HS #30 tabs 10/10/24
Review of Systems
-
History Source: Patient
A 12 point ROS was completed and negative except as noted: Yes
Constitutional: Denies Fever, Fatigue or Chills
Respiratory: Denies Cough or Trouble Breathing
Cardiac: Denies Chest Pain or Palpitations
Abdomen/GI: Denies Abdominal Pain, Nausea, Vomiting or Diarrhea
: Denies Dysuria, Frequency or Flank Pain
Musculoskeletal: Reports Joint Pain; Denies Edema
Neurological: Denies Dizzy or Headache
Psych: Denies Depression or Anxiety
Physical Exam
Vital Signs
Vital Signs
Temp Pulse Resp BP Pulse Ox
98.2 F 96 19 149/69 96
07/24/25 23:04 07/25/25 04:15 07/25/25 04:15 07/25/25 04:00 07/25/25 04:15
Physical Exam
General: Other (85y F in mild distress due to R hip pain.)
HEENT: Other (Dry MM. Neck supple.)
Respiratory: Clear; No Wheezes, Rales or Rhonchi
Cardiac: S1/S2, Regular Rhythm and Murmur (II/ JACI)
GI: Soft, Non Tender, Non Distended and Normal Bowel Sounds
Musculoskeletal: No Clubbing, No Cyanosis and Other (RLE shortened and externally rotated. Pain in the R hip / groin with any movement.)
Neuro: AO x 3
Laboratory Results
-
07/24/25 23:22
07/24/25 23:22
Laboratory Results
Total Bilirubin 0.6 mg/dl (0.2-1.3) 07/24/25 23:22
AST 28 U/L (14-36) 07/24/25 23:22
ALT 24 U/L (0-35) 07/24/25 23:22
Alkaline Phosphatase 97 U/L (38-126) 07/24/25 23:22
Impression/Plan
-
A/P: Patient is an 85y F with PMH significant for ASCVD, A-Fib, hypertension and hypothyroidism who presents to ED complaining of R hip pain s/p fall at home.
Right Hip Fracture
Fall at Home
- Admit for further evaluation and treatment.
- Unclear mechanism of fall - but no suspicious prodrome, no head injury and no LOC.
- Ortho evaluation for operative repair.
- Cardiology evaluation for pre-op assessment.
- Pain control / supportive care for now.
- Post-op PT, pain control, DVT prophylaxis, etc.
Hypoxemia
- Unclear etiology. SpO2 88% on room air in the ED.
- No complaints of cough, SOB, chest pain, etc.
- CXR unremarkable. CTA chest (prior h/o DVT) without PE.
- Continue supplemental O2 for now.
- Follow for changes. ? atelectasis, etc with no other clear etiology.
ASCVD
Paroxysmal Atrial Fibrillation
- Stable. Continue current CV med regimen.
- No longer on OAC after LINQ placement / low A-Fib burden.
- Cardiology evaluation as noted above.
Benign Hypertension
- Stable. Continue current regimen.
Anxiety / Depression
- Stable. Continue sertraline.
History of DVT
DVT Prophylaxis
- s/p IVC filter after L OSKAR from prior hip fracture (2020 @ [facility]).
- SCDs for now. Post-op Per Ortho.
Code Status: Full
[2025-07-25] MEDS: ZOFRAN 4 MG IV ×2 (05:52→23:04)
[2025-07-25] MEDS: DILAUDID 0.5 MG IV ×4 (05:53→21:38)
[2025-07-25] MEDS: FLUSH (NSS) 1 FLUSH IV (05:59)
--- NOTE | 2025-07-25 08:14 | PTCARENOTE ---
Patient admitted from home with a fractured right hip s/p fall.The patient is alert and oriented.She said her pain is a 9 out of 10 with movement but she has no pain if laying still.The patient is in her bed with the call carpenter in place.Orthopedic
and cardiology consults awaiting.
[2025-07-25] MEDS: LIPITOR 20 MG PO (09:29)
[2025-07-25] MEDS: PROTONIX 40 MG PO (09:30)
--- NOTE | 2025-07-25 09:30 | CON.CAR ---
Addendum entered and electronically signed by Trisha Agudelo DO 07/25/25 14:14:
Disregard this consult note.
Original Note:
Medical History
Allergies / Home Medications
Allergy/AdvReac Type Severity Reaction Status Date / Time
codeine Allergy Nausea / Verified 10/27/24 09:41
Vomiting
doxycycline Allergy Nausea Verified 10/27/24 09:41
escitalopram (From Lexapro) Allergy diarrhea Verified 10/27/24 09:41
morphine Allergy Nausea / Verified 10/27/24 09:41
Vomiting
Penicillins Allergy diarrhea Verified 10/27/24 09:41
apixaban (From Eliquis) AdvReac Unknown hemarthrosi Verified 10/27/24 09:41
s
�Medication �Instructions �Recorded �Confirmed �Type
atorvastatin 20 mg tablet 20 mg PO DAILY High cholesterol 02/14/19 07/25/25 History
melatonin 3 mg tablet 3 mg PO HSPRN PRN insomnia 02/14/19 07/25/25 History
diltiazem HCl 180 mg 180 mg PO HS Blood Pressure 08/21/22 07/25/25 History
capsule,extended release 24 hr
acetaminophen 650 mg 1,300 mg PO Q8HPRN PRN mild pain 05/07/23 07/25/25 History
tablet,extended release (Tylenol 8
Hour)
cholecalciferol (vitamin D3) 25 25 mcg PO DAILY Supplement 05/07/23 07/25/25 History
mcg (1,000 unit) capsule (Vitamin
D3)
multivitamin 1 tab PO DAILY Supplement 05/07/23 07/25/25 History
losartan 100 mg tablet 100 mg PO DAILY Blood Pressure 01/22/24 07/25/25 History
sertraline 50 mg tablet 50 mg PO HS Depression 01/22/24 07/25/25 History
cranberry extract 200 mg capsule 200 mg PO DAILY Supplement 10/05/24 07/25/25 History
(Ellura)
omeprazole 20 mg capsule,delayed 20 mg PO DAILY GERD 10/05/24 07/25/25 History
release
ascorbic acid (vitamin C) 500 mg 500 mg PO HS #30 tabs 10/10/24 07/25/25 Rx
tablet (Vitamin C)
ferrous sulfate 325 mg (65 mg 325 mg PO HS #30 tabs 10/10/24 07/25/25 Rx
iron) tablet (FeroSul)
Physical Exam
Vital Signs
Temp Pulse Resp BP Pulse Ox
98.2 F 91 17 151/65 97
07/24/25 23:04 07/25/25 06:15 07/25/25 06:15 07/25/25 06:00 07/25/25 06:15
Lab Results
07/24/25 23:22
07/24/25 23:22
[2025-07-25 09:47] LABS: Troponin I < 0.012 ng/ml
[2025-07-25] MEDS: COZAAR 100 MG PO (10:46)
--- NOTE | 2025-07-25 12:01 | W.PN.UPDATE ---
Update Note
Progress Note Update
Full orthopedic consult dictated:
Patient unfortunately has sustained a displaced right femoral neck fracture. She is going to require hemiarthroplasty and has been tentatively placed on schedule for tomorrow. It appears as though medicine and cardiology have cleared her for
surgery. She will be n.p.o. after midnight. Surgery consent signed and surgical location marked.
--- NOTE | 2025-07-25 12:33 | W.PN.UPDATE ---
Update Note
Progress Note Update
Seen and admitted by Dr. Asif this morning.
Patient had a fall and sustained a right subcapital fracture-plan for or tomorrow
Appreciate cardiology input regarding preop cardiac eval
Leukocytosis noted but no fever. Chest x-ray/chest CT without evidence of pneumonia. Denying any dysuria or frequency of urine. Unclear if reactive. Follow in AM.
Hypoxia-patient currently on 3 L of oxygen without respiratory complaints of shortness of breath or cough. She had chest CT which showed no evidence of PE nor any focal pulmonary disease. There is moderate cardiomegaly. Mild CHF suggested on
chest x-ray. Check BNP. Consider diuretics.
--- NOTE | 2025-07-25 13:24 | CM ---
Addendum entered by Rosalee García 07/25/25 13:29:
Of note, dtr resides next door
Original Note:
CM attempted bedside meeting with pt but sleeping soundly
Call with dtr/Shaye
Pt resides alone in a 2SH with 2+1 GABE
Has FF set up, sleeps in regular bed
Pt is independent with her ADLs with use of a SPC, has a WW for use as needed
Pt's preferred [facility] agency is [facility]
PCP- Ted Morales
Rx- [facility]/[place]
Pt with R hip fx
Tentative OR for tomorrow
Will benefit from postop PT/OT orders
PAC list left bedside for dtr to review for visit later today
SNF is anticipated on dc
Discharge Disposition- anticipate SNF
--- NOTE | 2025-07-25 14:11 | CON.CAR ---
Consultation
Consultation Request
Date/Time Consultation Requested: 07/25/25
Date/Time Consultation Performed: 07/25/25
Requesting Provider: Dr. Strange
Performing Provider: Dr. Agudelo
Reason for Consultation: hip fracture; cardiac risk assessment
Medical History
-
Chief Complaint: fall at home; right hip fracture
History of Present Illness:
I had the pleasure to meet Samreen Morton in room 2115-09 after she was admitted to [facility] after falling on her porch last evening around 9 PM while she was out with her dog. She denies syncope or loss of consciousness. She denies
lightheadedness or dizziness prior to her fall. She did not hit her head. It took her about an hour to crawl from the porch into the kitchen to call her daughter who later called an ambulance. She was not able to stand and complained of right hip
pain. She was found to have a right hip fracture with anticipated need for operative repair, awaiting orthopedic consult. Cardiology was asked to see her for preoperative cardiac risk assessment.
.
Samreen is an 85-year-old female who follows with my colleague, Dr. Reinier Burton. She has a history of PAF status post ablation in 2021 and also has a history of SVT/AV alexus reentrant tachycardia diagnosed in 2019 with low burden atrial arrhythmia
now followed by Linq implant not currently on anticoagulation. She has no history of stroke/TIA. She also has a history of nonobstructive coronary artery disease by cardiac catheterization in 2019 for positive troponin in the setting of SVT.
Additionally she has a history of hypertension, hypothyroidism, hyperlipidemia, Zenker's diverticulum, large hiatal hernia and prior GI bleeds. She had a fall resulting in a left hip fracture in 2020 treated at [facility] and underwent left hip
hemiarthroplasty. Per outpatient notes postoperative course was complicated by DVT and she was placed on Eliquis. Unfortunately she then developed a right thigh hematoma with placement of an IVC filter. Both patient and her daughter Shaye do not
recall details surrounding this however a CT of the abdomen and pelvis 10/05/2024 was reviewed with report noting that the IVC filter was present. She also has a history of a small suprarenal abdominal aortic aneurysm measuring 3.6 cm in maximal
diameter stable on this CT exam. Patient denies chest pain or pressure, shortness of breath, palpitations, lightheadedness, syncope or near syncope. She denies anesthesia related complications. She is complaining only of right hip pain. Spoke
with daughter Shaye over the phone.
Past medical/surgical history: PAF, hypertension, SVT/AVNRT, Linq implant 2018, moderate coronary artery disease, cardiac catheterization, small suprarenal AAA, hypothyroidism, postoperative DVT, hyperlipidemia, history of depression, history of GI
bleed, large hiatal hernia/Zenker diverticulum, DJD, osteoporosis, IBS, history of pelvic as abscess status post drainage and colostomy in 1996 following sigmoid resection. History of left hemiarthroplasty 2020 at [facility] following
mechanical fall. Cataract surgery, ALY/BSO 1983, breast biopsy 1996, bilateral knee replacement 2015, appendectomy 1974, tubal ligation 1974, percutaneous cholecystectomy tube September 2024.
Past Medical History
Past Medical History: Other (See HPI)
Past Surgical History: Other (See HPI)
Social History
Tobacco: Non-Smoker
Alcohol: None
Drug: None
Living: Alone
Employment: Retired
Family History
Family History: Reviewed & Not Pertinent
Allergies / Home Medications
Allergy/AdvReac Type Severity Reaction Status Date / Time
codeine Allergy Nausea / Verified 10/27/24 09:41
Vomiting
doxycycline Allergy Nausea Verified 10/27/24 09:41
escitalopram (From Lexapro) Allergy diarrhea Verified 10/27/24 09:41
morphine Allergy Nausea / Verified 10/27/24 09:41
Vomiting
Penicillins Allergy diarrhea Verified 10/27/24 09:41
apixaban (From Eliquis) AdvReac Unknown hemarthrosi Verified 10/27/24 09:41
s
�Medication �Instructions �Recorded �Confirmed �Type
atorvastatin 20 mg tablet 20 mg PO DAILY High cholesterol 02/14/19 07/25/25 History
melatonin 3 mg tablet 3 mg PO HSPRN PRN insomnia 02/14/19 07/25/25 History
diltiazem HCl 180 mg 180 mg PO HS Blood Pressure 08/21/22 07/25/25 History
capsule,extended release 24 hr
acetaminophen 650 mg 1,300 mg PO Q8HPRN PRN mild pain 05/07/23 07/25/25 History
tablet,extended release (Tylenol 8
Hour)
cholecalciferol (vitamin D3) 25 25 mcg PO DAILY Supplement 05/07/23 07/25/25 History
mcg (1,000 unit) capsule (Vitamin
D3)
multivitamin 1 tab PO DAILY Supplement 05/07/23 07/25/25 History
losartan 100 mg tablet 100 mg PO DAILY Blood Pressure 01/22/24 07/25/25 History
sertraline 50 mg tablet 50 mg PO HS Depression 01/22/24 07/25/25 History
cranberry extract 200 mg capsule 200 mg PO DAILY Supplement 10/05/24 07/25/25 History
(Ellura)
omeprazole 20 mg capsule,delayed 20 mg PO DAILY GERD 10/05/24 07/25/25 History
release
ascorbic acid (vitamin C) 500 mg 500 mg PO HS #30 tabs 10/10/24 07/25/25 Rx
tablet (Vitamin C)
ferrous sulfate 325 mg (65 mg 325 mg PO HS #30 tabs 10/10/24 07/25/25 Rx
iron) tablet (FeroSul)
Review of Systems
-
All other systems: Negative unless noted
Constitutional: No Symptoms
EENT: No Symptoms
Respiratory: No Symptoms
Cardiac: No Symptoms
Abdomen/GI: No Symptoms
: No Symptoms
Musculoskeletal: Joint Pain and Muscle Stiffness
Neurological: No Symptoms
Endocrine: No Symptoms
Hematologic/Lymphatic: No Symptoms
Physical Exam
Vital Signs
Temp Pulse Resp BP Pulse Ox
98.4 F 86 16 151/84 97
07/25/25 11:30 07/25/25 11:30 07/25/25 11:30 07/25/25 11:30 07/25/25 11:30
Lab Results
07/24/25 23:22
07/24/25 23:22
Troponin I < 0.012 ng/ml 07/25/25 09:06
Physical Exam
General: Well Developed, Well Nourished and Comfortable
HEENT: Normocephalic, Anicteric and Moist Mucous Membranes
Respiratory: Clear and Non Labored Respirations; Negative Wheezes, Crackles or Rhonchi
Cardiac: S1/S2 and Regular Rhythm; Negative Murmur, Peripheral Edema or JVD
Breast: Deferred by me
GI: Soft, Non Distended and Normal Bowel Sounds
Musculoskeletal: No Edema and Other (Right hip fracture with expected leg deformed)
Skin: Warm and Dry; Negative Rash
Neuro: AO x 3
Psych: Calm
Impression / Plan
-
Genetic Counsellor: Dr. Burton
Impression:
Mechanical fall with right hip fracture
History of paroxysmal atrial fibrillation status post ablation in 2021; burden monitored through Linq implant placed 2018. Not on oral anticoagulation
History of SVT/AV alexus reentrant tachycardia 2018 which broke with IV Cardizem. No known recurrence
Hypertension
Hyperlipidemia
Small suprarenal abdominal aortic aneurysm by CT scan, 3.6 cm maximal dimension on September 2024 study
Nonobstructive coronary artery disease by cardiac catheterization 2018
Osteoporosis
DJD
History of mechanical fall and left hip fracture status post left hemiarthroplasty at [facility] 2020
Reported history of postop DVT following hip fracture, 2020
History of thigh hematoma on Eliquis status post IVC filter 2020; IVC filter still present based on CT scan September 2019
History of large hiatal hernia and Zenker's diverticulum
History of GERD
History of hypothyroidism
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
Plan:
Mechanical fall with right hip fracture for ORIF
- Procedure is intermediate risk and patient has intermediate risk factors which are stable. She may proceed with surgery as planned.
- Twelve-lead EKG normal sinus rhythm without ischemic changes.
-Cardiac troponin less than 0.012 with no preceding cardiac symptoms.
- Monitor on telemetry given history of atrial arrhythmias.
- Cocoa text discussion with hospitalist as well as orthopedics regarding patient's prior postoperative complications with DVT and Eliquis associated thigh hematoma with IVC filter. Could consider DVT prophylaxis Eliquis once hemostasis has been
achieved.
- Monitor hemoglobin closely. Currently 12.6. Creatinine 0.7.
- Leukocytosis without symptoms of infection. Likely reactive.
Hypoxemic on 3 L nasal cannula without reported shortness of breath
- CTA of the chest, PE study in the ER with no PE. No pneumonia. Stable dilatation of aortic habitus, 3.6 cm. Hiatal hernia noted.
- May be related to pain related hypoventilation/splinting and atelectasis
- Does not appear volume overloaded but proBNP pending.
History of PAF/SVT status post ablation with arrhythmia burden monitored through Linq implanted in 2019
- Currently in sinus rhythm
- Continue diltiazem 180 mg nightly
- Telemetry monitoring
History of hypertension
- Blood pressures are slightly elevated however patient is in pain.
- Continue current outpatient medications and monitor closely
Hyperlipidemia�continue outpatient medical therapy
Data Reviewed
-
EKG: Tracing Personally Visualized and interpreted
CT Scan: Report Reviewed by me
Medical Tests (Nuc Med, Echo etc): Report Reviewed by me
Labs: Labs Reviewed by me
Old Records: Reviewed
[2025-07-25 15:37] LABS: Urine Character Clear (Clear)
[2025-07-25 15:46] LABS: Urine Red Blood Cell 0-2 /HPF (0-2)
[2025-07-25] MEDS: FLUSH (NSS) 2 FLUSH IV (17:42)
[2025-07-25] MEDS: CARDIZEM CD 180 MG PO (21:38)
[2025-07-25] MEDS: FEOSOL 325 MG PO (21:38)
[2025-07-25] MEDS: ZOLOFT 50 MG PO (21:38)
[2025-07-25] MEDS: MELATONIN 3 MG PO (21:48)
[2025-07-26] VITALS (18 sets, daily range): BP systolic 112–155; BP diastolic 52–114; BMI 22.6
[2025-07-26] MEDS: DILAUDID 0.5 MG IV (03:38)
[2025-07-26 05:47] LABS: Hematocrit 37.3 % (37.0-47.0); Hemoglobin 11.8 g/dL (12.0-16.0); Mean Corp Hgb Conc. 31.6 g/dL (33.0-37.0); Mean Corpuscular Volume 91.6 fL (81.0-99.0); Platelet Count 235 10^3/uL (130-400); Red Cell Dist. Width 14.3 % (11.5-14.5)
[2025-07-26 06:03] LABS: Blood Urea Nitrogen 22 mg/dl (7-17); Calcium 9.2 mg/dl (8.4-10.2); Carbon Dioxide 31 mmol/L (22-30); Chloride 98 mmol/L (98-107); Estimated Creatinine Clearance 57 ml/min; Glucose 127 mg/dl (70-99); Potassium 3.7 mmol/L (3.5-5.1); Sodium 134 mmol/L (135-145); eGFR > 60.00
[2025-07-26 06:13] LABS: Troponin I 0.015 ng/ml
[2025-07-26] MEDS: ROXICODONE 5 MG PO (10:57)
--- NOTE | 2025-07-26 11:29 | W.PN.HOSP.TC ---
Today's Communication/Plan
-
Start on Eliquis anticoagulation for prophylaxis starting this evening
PT OT eval in a.m.
Continue with pain regimen postop per orthopedics
Assessment / Plan
Assessment / Plan
Mechanical fall leading to right subcapital fracture status post right OSKAR today
History of DVT in the past post orthopedic surgery
Continue with the pain regimen per orthopedics
Orthopedics are okay to resume anticoagulation-Will start on Eliquis 2.5 mg twice daily this evening.
PT OT eval in AM.
Leukocytosis-no fever.Chest x-ray/chest CT without evidence of pneumonia. Denying any dysuria or frequency of urine. Improved today without treatments. Suspect probably reactive. Follow for now.
Hypoxia-She had chest CT which showed no evidence of PE nor any focal pulmonary disease. There is moderate cardiomegaly. Mild CHF suggested on chest x-ray. proBNP was normal. She was off of oxygen yesterday. Continue to follow.
ASCVD
Paroxysmal Atrial Fibrillation
- Stable. Continue current CV med regimen.
- No longer on OAC after LINQ placement / low A-Fib burden.
- Cardiology following
Benign Hypertension
- Stable. Continue current regimen.
Anxiety / Depression
- Stable. Continue sertraline.
History of DVT
DVT Prophylaxis
- s/p IVC filter after L OSKAR from prior hip fracture (2020 @ [facility]).
- Eliquis 2.5 mg twice daily starting this evening
Code Status: Full
Anticipated Discharge: 24 - 48 hours
Subjective/Interval History
-
Date of Service: July 26, 2025
Patient seen in PACU. She is alert and oriented. Hard of hearing.
Denies shortness of breath. No nausea or vomiting.
Has runny nose. Denies sore throat.
Objective Data
-
Labs:
Laboratory Results
07/26/25
05:22
WBC 10.9 H
Hgb 11.8 L
Hct 37.3
Plt Count 235
Sodium 134 L
Potassium 3.7
Chloride 98
Carbon Dioxide 31 H
BUN 22 H
Creatinine 0.6
Glucose 127 H
Calcium 9.2
Vital Signs:
Vital Signs
Temp Pulse Resp BP Pulse Ox
99.1 F 86 18 128/58 96
07/26/25 11:15 07/26/25 11:16 07/26/25 11:16 07/26/25 11:16 07/26/25 11:16
I&O
07/25/25 07/26/25 07/27/25
06:59 06:59 06:59
Intake Total 120 / 120
Output Total 320 / 320
Balance -200 / -200
Physical Exam
-
General: Comfortable
Respiratory: Clear to Auscultation (Anteriorly) and Non Labored Respirations; Negative Accessory Resp Muscle Use
Cardiac: Regular Rhythm and S1/S2; Negative Tachycardic
GI: Soft
Musculoskeletal: No Edema
Neuro: AO x 3
Psych: Calm; Negative Confused
Data Reviewed
-
Labs: Labs Reviewed by me
[2025-07-26] MEDS: NSS 1000 IV (11:30)
--- NOTE | 2025-07-26 12:35 | W.PN.CARDCBS ---
Today's Communication / Plan
-
Supportive postop care
Check postop EKG
Impression / Plan
-
Financial Auditor: Dr. Burton
Impression:
Mechanical fall with right hip fracture
History of paroxysmal atrial fibrillation status post ablation in 2021; burden monitored through Linq implant placed 2018. Not on oral anticoagulation
History of SVT/AV alexus reentrant tachycardia 2018 which broke with IV Cardizem. No known recurrence
Hypertension
Hyperlipidemia
Small suprarenal abdominal aortic aneurysm by CT scan, 3.6 cm maximal dimension on September 2024 study
Nonobstructive coronary artery disease by cardiac catheterization 2018
Osteoporosis
DJD
History of mechanical fall and left hip fracture status post left hemiarthroplasty at [facility] 2020
Reported history of postop DVT following hip fracture, 2020
History of thigh hematoma on Eliquis status post IVC filter 2020; IVC filter still present based on CT scan September 2019
History of large hiatal hernia and Zenker's diverticulum
History of GERD
History of hypothyroidism
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
Plan:
Mechanical fall with right hip fracture Status post ORIF today
- Doing well immediately postop with no cardiovascular symptoms and hemodynamically stable
-Continue telemetry monitoring. Check postop EKG.
-Postop supportive management by orthopedics
-Ongoing discussions regarding DVT prophylaxis given prior history of left hip DVT. Patient does have an IVC filter.
History of PAF/SVT status post ablation with arrhythmia burden monitored through Linq implanted in 2018
- Currently in sinus rhythm
- Continue diltiazem 180 mg nightly
- Telemetry monitoring
History of hypertension
- Continue current medical therapy.
- Continue current outpatient medications and monitor closely
Hyperlipidemia�continue outpatient medical therapy
Progress Note - Financial Auditor
Subjective
Date of Service: July 26, 2025
Seen and examined postop ORIF. Daughter at bedside. Patient offers no complaints including pain. No chest pain or pressure. No shortness of breath.
Objective
Labs:
07/26/25 05:22
07/26/25 05:22
Labs
Hgb 11.8 g/dL (12.0-16.0) L 07/26/25 05:22
Hct 37.3 % (37.0-47.0) 07/26/25 05:22
Plt Count 235 10^3/uL (130-400) 07/26/25 05:22
Sodium 134 mmol/L (135-145) L 07/26/25 05:22
Potassium 3.7 mmol/L (3.5-5.1) 07/26/25 05:22
BUN 22 mg/dl (7-17) H 07/26/25 05:22
Creatinine 0.6 mg/dL (0.6-1.0) 07/26/25 05:22
Glucose 127 mg/dl (70-99) H 07/26/25 05:22
Troponins
07/25/25 07/25/25 07/25/25
09:06 14:45 14:58
Troponin I < 0.012 Cancelled Cancelled
07/26/25
05:22
Troponin I 0.015
Vital Signs and I&O:
Vital Signs
Temp Pulse Resp BP Pulse Ox
98.1 F 87 18 144/71 92
07/26/25 11:40 07/26/25 11:40 07/26/25 11:40 07/26/25 11:40 07/26/25 11:40
Vital Signs
Temp Pulse Resp BP Pulse Ox
98.1 F 87 18 144/71 92
07/26/25 11:40 07/26/25 11:40 07/26/25 11:40 07/26/25 11:40 07/26/25 11:40
Intake & Output
07/24/25 07/25/25 07/26/25 07/27/25
06:59 06:59 06:59 06:59
Intake Total 120 / 120 200 / 200
Output Total 320 / 320
Balance -200 / -200 200 / 200
Physical Exam
Physical Exam
General: No acute distress, AAOX3
Neck: Negative JVD
Heart: Regular, positive S1/S2,No murmur
Lungs: CTA b/l, negative wheezes/rales/rhonchi
Abd: Positive BS, NT/ND, neg rebound/rigidity/guarding
Ext: no edema. + TEDS.
Neuro: nonfocal
[2025-07-26] MEDS: PROTONIX 40 MG PO (13:09)
[2025-07-26] MEDS: COZAAR 100 MG PO (13:09)
[2025-07-26] MEDS: LIPITOR 20 MG PO (13:10)
[2025-07-26] MEDS: TYLENOL 650 MG PO (15:16)
[2025-07-26] MEDS: ANCEF 5 IV ×2 (15:17→23:14)
--- NOTE | 2025-07-26 18:50 | PTCARENOTE ---
pt stated she would not like Eliquis restarted bc Dr. Burton took her off off it. I explained what it was for, but she stated her knees get weak and she falls on Eliquis.
[2025-07-26] MEDS: BACTROBAN 2% OINTMENT 1 APPLIC NASAL (20:29)
[2025-07-26] MEDS: COLACE 100 MG PO (20:30)
[2025-07-26] MEDS: DECADRON 4 MG PO (20:30)
[2025-07-26] MEDS: SENOKOT 17.2 MG PO (20:30)
[2025-07-26] MEDS: ELIQUIS 2.5 MG PO (20:30)
[2025-07-26] MEDS: ZOLOFT 50 MG PO (21:26)
[2025-07-26] MEDS: CARDIZEM CD 180 MG PO (21:26)
[2025-07-26] MEDS: FEOSOL PO (21:28)
[2025-07-27] VITALS (8 sets, daily range): BP systolic 120–139; BP diastolic 57–67; PULSE 90; O2SAT 92; BMI 22.5
[2025-07-27] MEDS: MELATONIN 3 MG PO (00:22)
[2025-07-27 06:56] LABS: Hematocrit 30.8 % (37.0-47.0); Hemoglobin 9.8 g/dL (12.0-16.0); Mean Corp Hgb Conc. 31.8 g/dL (33.0-37.0); Mean Corpuscular Volume 91.9 fL (81.0-99.0); Platelet Count 194 10^3/uL (130-400); Red Cell Dist. Width 14.1 % (11.5-14.5)
--- NOTE | 2025-07-27 07:09 | W.PN.ORTHO ---
Today's Communication / Plan
-
Appreciate primary team, continue Tx
Dispo likely SNF, appreciate CM
Continue WBAT RLE on walker/device
PT/OT, THPs x 6 weeks
Eliquis for DVT ppx- modified dosing for 3 days before resuming full therapy
Pain control, ice to hip
Dressings to remain 7-10 days
[place] out 2 weeks post-op (Office or SNF)
If jennifer out at SNF outpatient Ortho in 4 weeks
Will follow
Assessment
.
Distal Motor Intact: Yes
Dressing:
Clean, dry and intact. Primaseal in place right hip
Assessment:
POD#1 Right hip Guillermo
Overall doing/feeling well
Calf soft, nontender
Plan
.
Surgery / Date: Right hip Guillermo Aug 04 (Vishnu)
DVT Prophylaxis: Other (Modified Eliquis )
Activity:
Out of bed. WBAT RLE on walker
PT/OT. THPs x 6 weeks
Discharge Plan: SNF and Other (Appreciate CM)
Subjective
.
.:
Patient resting comfortably this AM. Endorses mild pain right hip
Vital Signs and Labs
.
Vital Signs and Labs:
Lab Results
07/27/25 06:22
Temp Pulse Resp BP Pulse Ox
98.3 F 85 17 133/61 94
07/27/25 03:00 07/27/25 03:00 07/27/25 03:00 07/27/25 03:00 07/27/25 03:00
Non-invasive Hgb result: 11.0
[2025-07-27 07:17] LABS: Blood Urea Nitrogen 19 mg/dl (7-17); Calcium 8.2 mg/dl (8.4-10.2); Carbon Dioxide 31 mmol/L (22-30); Chloride 100 mmol/L (98-107); Estimated Creatinine Clearance 57 ml/min; Glucose 129 mg/dl (70-99); Potassium 3.9 mmol/L (3.5-5.1); Sodium 135 mmol/L (135-145); eGFR > 60.00
[2025-07-27] MEDS: PROTONIX 40 MG PO (07:49)
[2025-07-27] MEDS: SENOKOT 17.2 MG PO ×2 (07:49→20:56)
[2025-07-27] MEDS: COZAAR 100 MG PO (07:49)
[2025-07-27] MEDS: DECADRON 4 MG PO ×2 (07:50→20:55)
[2025-07-27] MEDS: COLACE 100 MG PO ×2 (07:50→20:55)
[2025-07-27] MEDS: BACTROBAN 2% OINTMENT 1 APPLIC NASAL ×2 (07:50→20:55)
[2025-07-27] MEDS: LIPITOR 20 MG PO (07:50)
[2025-07-27] MEDS: ELIQUIS 2.5 MG PO ×2 (07:50→20:56)
--- NOTE | 2025-07-27 12:54 | W.PN.CARDCBS ---
Today's Communication / Plan
-
Stable cardiology status
Sign off
Impression / Plan
-
Car Unloader Helper: Dr. Burton
Impression:
Mechanical fall with right hip fracture
History of paroxysmal atrial fibrillation status post ablation in 2021; burden monitored through Linq implant placed 2018. Not on oral anticoagulation
History of SVT/AV alexus reentrant tachycardia 2018 which broke with IV Cardizem. No known recurrence
Hypertension
Hyperlipidemia
Small suprarenal abdominal aortic aneurysm by CT scan, 3.6 cm maximal dimension on September 2024 study
Nonobstructive coronary artery disease by cardiac catheterization 2018
Osteoporosis
DJD
History of mechanical fall and left hip fracture status post left hemiarthroplasty at [facility] 2020
Reported history of postop DVT following hip fracture, 2020
History of thigh hematoma on Eliquis status post IVC filter 2020; IVC filter still present based on CT scan September 2019
History of large hiatal hernia and Zenker's diverticulum
History of GERD
History of hypothyroidism
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
Plan:
Stable cardiology status status post right hip fracture surgery
EKG stable
Remains in sinus rhythm
Will sign off, call with questions
Progress Note - Car Unloader Helper
Subjective
Date of Service: July 27, 2025
No complaints
Objective
Labs:
07/27/25 06:22
07/27/25 06:22
Labs
Hgb 9.8 g/dL (12.0-16.0) L 07/27/25 06:22
Hct 30.8 % (37.0-47.0) L 07/27/25 06:22
Plt Count 194 10^3/uL (130-400) 07/27/25 06:22
Sodium 135 mmol/L (135-145) 07/27/25 06:22
Potassium 3.9 mmol/L (3.5-5.1) 07/27/25 06:22
BUN 19 mg/dl (7-17) H 07/27/25 06:22
Creatinine 0.6 mg/dL (0.6-1.0) 07/27/25 06:22
Glucose 129 mg/dl (70-99) H 07/27/25 06:22
Troponins
07/25/25 07/25/25 07/25/25
09:06 14:45 14:58
Troponin I < 0.012 Cancelled Cancelled
07/26/25
05:22
Troponin I 0.015
Vital Signs and I&O:
Vital Signs
Temp Pulse Resp BP Pulse Ox
98.3 F 80 16 126/61 94
07/27/25 11:18 07/27/25 11:18 07/27/25 11:18 07/27/25 11:18 07/27/25 11:18
Vital Signs
Temp Pulse Resp BP Pulse Ox
98.3 F 80 16 126/61 94
07/27/25 11:18 07/27/25 11:18 07/27/25 11:18 07/27/25 11:18 07/27/25 11:18
Intake & Output
07/25/25 07/26/25 07/27/25 07/28/25
06:59 06:59 06:59 06:59
Intake Total 120 / 120 1640 / 1640 480 / 480
Output Total 320 / 320 1300 / 1300
Balance -200 / -200 340 / 340 480 / 480
Physical Exam
Physical Exam
General: Well developed, well nourished in NAD.
Neck: Supple, no JVD, HJR, carotids +2 B/L, no bruits bilaterally.
Heart: Non displaced PMI, RRR, no murmurs, No S3, S4, no rubs.
Lungs: Clear to auscultation bilaterally, no wheeze, rhonchi, rubs bilaterally,
normal expiratory phase.
Extremities: No clubbing, cyanosis or edema bilaterally.
Neuro: Grossly nonfocal, awake, alert and oriented x3.
--- NOTE | 2025-07-27 13:57 | CM ---
Continue WBAT RLE on walker/device. Therapy recommended SNF. Met with patient and daughter. [employer] list previously given to daughter. Received preferences and sent referrals. Discharge POC: SNF.
--- NOTE | 2025-07-27 14:06 | W.PN.HOSP.TC ---
Addendum entered and electronically signed by Chay Barnard DO 07/28/25 10:47:
Acute post-operative pulmonary insufficiency
Original Note:
Today's Communication/Plan
-
Assessment / Plan
Assessment / Plan
General: No Apparent Distress, Comfortable and Conversant
HEENT: NormoCephalic, Moist mucous membranes, Atraumatic
Respiratory: Clear and Non Labored Respirations
Cardiac: S1/S2 and Regular Rhythm; No Rub or Gallop
GI: Soft, Non Tender, Non Distended and Normal Bowel Sounds
Musculoskeletal: No Edema, right hip surgical dressing CDI
: NO Daly
Neuro: Awake, Alert, Nonfocal/grossly intact
Psych: Calm and cooperative
Mechanical fall leading to right subcapital fracture:
- Status post right OSKAR 07/25/2025
- History of DVT in the past post orthopedic surgery, IVC filter in place
- Started on low-dose Eliquis for DVT prophylaxis postoperatively, will have to clarify preferred prophylactic regimen/duration with orthopedics
- Anticipate discharge to SNF in the next 24 hours
Leukocytosis-no fever.Chest x-ray/chest CT without evidence of pneumonia. Denying any dysuria or frequency of urine. Improved today without treatments. Suspect probably reactive. Follow for now.
Hypoxia-She had chest CT which showed no evidence of PE nor any focal pulmonary disease. There is moderate cardiomegaly. Mild CHF suggested on chest x-ray. proBNP was normal. Titrate oxygen as able. Continue to follow.
ASCVD
Paroxysmal Atrial Fibrillation
- Stable. Continue current CV med regimen.
- No longer on OAC after LINQ placement / low A-Fib burden.
- Cardiology following
Benign Hypertension
- Stable. Continue current regimen.
Anxiety / Depression
- Stable. Continue sertraline.
History of DVT
DVT Prophylaxis
- s/p IVC filter after L OSKAR from prior hip fracture (2020 @ [facility]).
- Eliquis 2.5 mg twice daily starting this evening, will need to clarify duration with Ortho
Code Status: Full
Anticipated Discharge: 24 - 48 hours
Subjective/Interval History
-
Date of Service: July 27, 2025
Patient was seen and examined at bedside this morning. No acute distress, pain adequately controlled.
Objective Data
-
Labs:
Laboratory Results
07/27/25
06:22
WBC 11.6 H
Hgb 9.8 L
Hct 30.8 L
Plt Count 194
Sodium 135
Potassium 3.9
Chloride 100
Carbon Dioxide 31 H
BUN 19 H
Creatinine 0.6
Glucose 129 H
Calcium 8.2 L
Vital Signs:
Vital Signs
Temp Pulse Resp BP Pulse Ox
98.3 F 80 16 126/61 94
07/27/25 11:18 07/27/25 11:18 07/27/25 11:18 07/27/25 11:18 07/27/25 11:18
I&O
07/26/25 07/27/25 07/28/25
06:59 06:59 06:59
Intake Total 120 / 120 1640 / 1640 480 / 480
Output Total 320 / 320 1300 / 1300
Balance -200 / -200 340 / 340 480 / 480
Review of Systems
-
History Source: Patient
All other systems: Reviewed and negative
Musculoskeletal: Reports Joint Pain (Right hip pain at the surgical site)
Physical Exam
-
General: No Apparent Distress
[2025-07-27] MEDS: TYLENOL 650 MG PO (20:55)
[2025-07-27] MEDS: CARDIZEM CD 180 MG PO (21:04)
[2025-07-27] MEDS: FEOSOL 325 MG PO (21:04)
[2025-07-27] MEDS: ZOLOFT 50 MG PO (21:04)
[2025-07-27] MEDS: ROXICODONE 2.5 MG PO (21:29)
[2025-07-28 03:11] VITALS: BP 110/58
[2025-07-28 05:16] VITALS: BMI 22.9
--- NOTE | 2025-07-28 05:43 | W.PN.ORTHO ---
Today's Communication / Plan
-
85F POD 2 right hip hemiarthroplasty with Dr. Mares
Appreciate primary team, continue Tx
Dispo likely SNF, appreciate CM
Continue WBAT RLE on walker/device
PT/OT, THPs x 6 weeks
Eliquis for DVT ppx- modified dosing for 3 days before resuming full therapy
Pain control, ice to hip
Dressings to remain 7-10 days
[place] out 2 weeks post-op (Office or SNF)
If jennifer out at SNF outpatient Ortho in 4 weeks
Orthopedic surgery will follow peripherally; discharge information completed. Please reengage if further questions or concerns
Assessment
.
Distal Motor Intact: Yes
Dressing:
Clean, dry and intact.
Plan
.
Surgery / Date: Right hip Guillermo Aug 04 (Vishnu)
Activity:
Out of bed.
PT/OT
Subjective
.
.:
Patient resting comfortably.
Vital Signs and Labs
.
Vital Signs and Labs:
Lab Results
07/27/25 06:22
07/27/25 06:22
Temp Pulse Resp BP Pulse Ox
98.3 F 79 16 110/58 91
07/28/25 03:11 07/28/25 03:11 07/28/25 03:11 07/28/25 03:11 07/28/25 03:11
Non-invasive Hgb result: 11.0
[2025-07-28 07:40] VITALS: BP 151/81
[2025-07-28] MEDS: PROTONIX 40 MG PO (07:47)
[2025-07-28] MEDS: ELIQUIS 2.5 MG PO (07:47)
[2025-07-28] MEDS: COZAAR 100 MG PO (07:47)
[2025-07-28] MEDS: DECADRON 4 MG PO (07:47)
[2025-07-28] MEDS: SENOKOT PO (07:48)
[2025-07-28] MEDS: LIPITOR 20 MG PO (07:48)
[2025-07-28] MEDS: COLACE PO (07:48)
--- NOTE | 2025-07-28 09:45 | PN.CDI ---
CDI
- -
CDI:
Physician Documentation Request
Admit Date: 07/25/25 05:33
Dear Doctor,
Patient admitted for hip fracture.
07/27 Hospitalist PN: 'Hypoxia-She had chest CT which showed no evidence of PE nor any focal pulmonary disease. There is moderate cardiomegaly. Mild CHF suggested on chest x-ray. proBNP was normal. Titrate oxygen as able. Continue to follow.'
Selected Entries
07/25/25
05:11 07/26/25
10:30 07/26/25
20:30
Nasal Cannula flow liters per minute 3 4 2
07/27/25
13:47 07/27/25
19:48 07/28/25
03:11
Nasal Cannula flow liters per minute 1 2 0.5
Clarify which of the following accurately represents the patient's respiratory status following surgery:
Acute post-operative pulmonary insufficiency
Hypoxia
Other
Unable to determine
Additional information for Pulmonary Insufficiency:
Consider when patients require buttermaker helper oxygen therapy postoperatively
Weaned off oxygen initially then requiring supplemental oxygen
No other definitive diagnosis to support the need for oxygen (COPD exac, CHF etc.)
Unable to wean from vent
When criteria for respiratory failure not present
May extend stay or require additional resources; may need home O2
Use of terms such as suspected, likely, concern for, or probable (associated with a specific diagnosis that is being evaluated, monitored, or treated as if it exists) are acceptable and can be coded in the inpatient setting, when documented at the
time of discharge.
Thank you,
Sarai Molina RN, BSN
CDI Specialist
Available via [place] text
Please use your independent medical judgment in providing your response.
--- NOTE | 2025-07-28 11:29 | CM ---
Addendum entered by Carla Paulino 07/28/25 13:36:
1600 transport to [facility] were updated of time.
Original Note:
Patient seen at bedside
tt from hospitalist stable for dc
[facility] with [facility] agreedable
IMM explained & placed in chart
PLAN: [facility]
report #; [phone]
fax #: [phone]
transportation forms on chart
[2025-07-28 11:30] VITALS: BP 143/72
--- NOTE | 2025-07-28 12:15 | W.DCSUMMARY ---
Discharge Summary
Discharge Data
Date of Admission: 07/25/25
Date of Discharge: 07/28/25
Total time spent discharging patient (in min): 44
-
Pending Results: No
Hospital Course
Ms. Morton is an 85-year-old female with medical history of A-fib (anticoagulation had been discontinued after Linq placement due to low A-fib burden), DVT (provoked following left OSKAR 2020, IVC filter in place), and hypertension who presented for
treatment of right subcapital femur fracture after mechanical fall at home. She underwent ORIF on 07/25/2025 and tolerated the procedure well. She was started on low-dose Eliquis for 3 days postoperatively which will be increased to full-strength
(5 mg twice daily) on day 4 to be continued for 2 weeks postoperatively. She will need to follow-up in the outpatient orthopedic clinic in 2 to 4 weeks. At the time of hospital discharge she was medically stable for transition to SNF.
General: No Apparent Distress, Comfortable and Conversant
HEENT: NormoCephalic, Moist mucous membranes, Atraumatic
Respiratory: Clear and Non Labored Respirations
Cardiac: S1/S2 and Regular Rhythm; No Rub or Gallop
GI: Soft, Non Tender, Non Distended and Normal Bowel Sounds
Musculoskeletal: No Edema, right hip surgical dressing CDI
: NO [place]aly
Neuro: Awake, Alert, Nonfocal/grossly intact
Psych: Calm and cooperative
Discharge Plan
-
Patient Disposition: Long-Term/SNF
Discharge Diagnosis/Procedures: Right subcapital femur fracture
Activity: As tolerated and With Walker
Additional Activity: posterior hip precautions x6 weeks
Driving Restrictions: Not until seen by your Dr
Bathing Restrictions: OK to Shower
Wound Care: maintain dressing for 10-14 days, jennifer out 14 days from DOS
Activity Restrictions/Additional Instructions:
You were admitted for treatment after a fall which resulted in fracture of your right hip. Your fracture was surgically repaired and you tolerated the procedure well. You will be discharged to a rehabilitation center for physical and Occupational
Therapy and will need to follow-up in the outpatient orthopedic office in 2 to 4 weeks.
Instructions: Hip replacement (DC)
Referrals:
Alfonzo Mares MD [Active, Orthopedics]
Referral Note: Followup 2 weeks from date of surgery for wound check if discharged home- if DC to SNF/ARF, can do wound check there and jennifer/sutures out and then follow-up with ortho 4-6 weeks from DOS
Ted Morales MD [Family Provider, Family Practice]
Prescriptions:
New
dexamethasone 4 mg Tablet
4 mg PO BID 2 Days Qty: 4 0RF
docusate sodium 100 mg Capsule
100 mg PO BID 5 Days Qty: 10 0RF
Eliquis 2.5 mg Tablet
2.5 mg PO BID Qty: 1 0RF
Eliquis 5 mg tablet
5 mg PO BID 14 Days Qty: 28 0RF
Rx Instructions:
start taking 5 mg BID on 07/29/2025, and take for 2 weeks
Continued
atorvastatin 20 MG tablet
20 mg PO DAILY
melatonin 3 MG tablet
3 mg PO HSPRN PRN (Reason: insomnia)
diltiazem HCl 180 MG capsule,extended release 24hr
180 mg PO HS
cholecalciferol (vitamin D3) [Vitamin D3] 25 mcg (1,000 unit) Capsule
25 mcg PO DAILY
multivitamin Tablet
1 tab PO DAILY
acetaminophen [Tylenol 8 Hour] 650 mg Tablet Extended Release
1,300 mg PO Q8HPRN PRN (Reason: mild pain)
losartan 100 mg Tablet
100 mg PO DAILY
sertraline 50 mg Tablet
50 mg PO HS
omeprazole 20 mg Capsule,Delayed Release(Dr/Ec)
20 mg PO DAILY
cranberry extract [Ellura] 200 mg Capsule
200 mg PO DAILY
ascorbic acid (vitamin C) [Vitamin C] 500 mg Tablet
500 mg PO HS Qty: 30 0RF
ferrous sulfate [FeroSul] 325 mg (65 mg iron) Tablet
325 mg PO HS Qty: 30 0RF
Discharge Orders:
Discharge Patient (As Directed); Ordered 07/28/25
Ordered By: Chay Barnard
Discharge Date and Time
Print Language: ESTONIAN
[2025-07-28] MEDS: FLUZONE HIGH-DOSE 2025-26 0.5 ML IM (12:52)
[2025-07-28 15:20] VITALS: BP 145/68
== END 2025-07-28 16:31 | DRG 521 ==
LOC: 2 SOUTH 05:33
PROVIDERS: Emergency Medicine; Internal Medicine; ADMITTING PHYSICIAN Hospitalist; ATTENDING PHYSICIAN Internal Medicine; CONSULT PHYSICIAN Specialist; EMERGENCY PHYSICIAN Student in an Organized Health Care Education/Training Program; FAMILY PHYSICIAN Family Medicine; OTHER PHYSICIAN Internal Medicine Cardiovascular Disease
PROC: 0SRR0J9 Replacement of Right Hip Joint, Femoral Surface with Synthetic Substitute, Cemented, Open Approach (ICD-10-PCS; 2025-07-26)
PROC: 3E02340 Introduction of Influenza Vaccine into Muscle, Percutaneous Approach (ICD-10-PCS; 2025-07-28)
DX: S72.001A Fracture of unspecified part of neck of right femur, initial encounter for closed fracture (principal); J95.2 Acute pulmonary insufficiency following nonthoracic surgery; Z86.718 Personal history of other venous thrombosis and embolism; I11.0 Hypertensive heart disease with heart failure; I48.0 Paroxysmal atrial fibrillation; W01.0XXA Fall on same level from slipping, tripping and stumbling without subsequent striking against object, initial encounter; Z79.01 Long term (current) use of anticoagulants; Z79.899 Other long term (current) drug therapy; Z23 Encounter for immunization; Z11.52 Encounter for screening for COVID-19
CPT/HCPCS: 71045; 71275; 73502; 80048; 80053; 81003; 81015; 83880; 84484; 85025; 85027; 86850; 86900; 86901; 87502; 87811; 90662; 93005; 96361; 96374; 97163; 97167; 97530; 97535; 99285; C1713; C1776; C1777; G0008; Q9967

== ENCOUNTER → 2025-08-04 10:28 | Outpatient (REF) | payer OTHER, MEDICARE, SELFPAY ==
[2025-08-04 12:12] LABS: Hematocrit 33.3 % (37.0-47.0); Hemoglobin 10.8 g/dL (12.0-16.0); Mean Corp Hgb Conc. 32.4 g/dL (33.0-37.0); Mean Corpuscular Volume 89.5 fL (81.0-99.0); Platelet Count 449 10^3/uL (130-400); Red Cell Dist. Width 14.0 % (11.5-14.5)
[2025-08-04 12:36] LABS: ALT (SGPT) 34 U/L (0-35); AST (SGOT) 19 U/L (14-36); Albumin 3.3 g/dl (3.5-5.0); Alkaline Phosphatase 79 U/L (38-126); Blood Urea Nitrogen 18 mg/dl (7-17); Calcium 8.6 mg/dl (8.4-10.2); Carbon Dioxide 27 mmol/L (22-30); Chloride 102 mmol/L (98-107); Glucose 106 mg/dl (70-99); HDL Cholesterol 49 mg/dl; Iron 42 ug/dl (37-170); LDL Cholesterol, Calculated 42 mg/dl; Magnesium 1.9 mg/dl (1.6-2.3); Potassium 4.1 mmol/L (3.5-5.1); Sodium 134 mmol/L (135-145); Total Protein 6.0 g/dl (6.3-8.2); Very Low Density Lipoprotein 21 mg/dl (0-30); eGFR > 60.00
[2025-08-04 12:45] LABS: Total Iron Binding Capacity 318 ug/dl (265-497)
[2025-08-04 13:50] LABS: TSH 5.91 uIU/ml (0.47-4.68)
[2025-08-05 08:10] LABS: Glycohemoglobin (HgbA1c) 5.6 % (4.0-5.9)
== END ==
LOC: OLABN 10:28
PROVIDERS: ATTENDING PHYSICIAN Student in an Organized Health Care Education/Training Program
DX: E55.9 Vitamin D deficiency, unspecified (principal); I10 Essential (primary) hypertension; Z13.1 Encounter for screening for diabetes mellitus; E78.5 Hyperlipidemia, unspecified; E03.9 Hypothyroidism, unspecified; Z79.899 Other long term (current) drug therapy
CPT/HCPCS: 36415; 80053; 80061; 83036; 83540; 83550; 83735; 84443; 85027